=== PATIENT | female | born 1950 | race Caucasian/White ===

== ENCOUNTER 2016-11-27 12:42 | Observation (INO) ==
--- NOTE | 2016-11-27 13:20 | EKG Report ---
Stationary ECG Study [facility] ER Test Date: 11/27/2016 12:45:44 PM Pat Name: KORTNEY CRAVEN Department: Room: Gender: F [employer] Spr[employer] Operator: BIA : 1950 Requested by: Eagle Jason Order Number: [id number] Reading MD: ZAIRE CORONADO Intervals [place] Rate: 68 P: 71 DC: 158 QRS: 49 QRSD: 96 T: 58 QT: 415 QTc: 433 Interpretive Statements SINUS RHYTHM Electronically Signed On 11-27-16 16:03:19 PASTRY BAKER by ZAIRE CORONADO [email or web address]
[2016-11-27] MEDS ORDERED: NITROGLYCERIN 2% OINT 1 INCH/GM PACK TOP STA (14:08)
[2016-11-27] MEDS ORDERED: ASPIRIN 325 MG TABLET PO STA (14:08)
[2016-11-27] MEDS ORDERED: MORPHINE 2 MG/1 ML SYRINGE IV STA (14:08)
[2016-11-27] MEDS ORDERED: ALUM/MAG/SIMETH/LIDO VISC 1:1 30 ML BOTTLE PO STA (14:08)
[2016-11-27] MEDS ORDERED: ONDANSETRON 4 MG/2 ML VIAL IV STA (14:08)
[2016-11-27 14:18] LABS: Basophils % 0.8 % (0.0-0.8); Eosinophils # 0.2 10*3/uL (0.0-0.87); Eosinophils % 6.2 % (0.00-10.9); Hematocrit 34.9 VOL% (35.7-47.0); Immature Granulocytes % 0.4 %; Immature Granulocytes Absolute 0.01 #; Lymphocytes # 0.7 10*3/uL (1.4-4.0); Mean Corpuscular HGB Conc 31.5 GM/DL (32-36); Mean Corpuscular Hemoglobin 26 PG (27-34); Mean Corpuscular Volume 82.5 FL (87-102); Mean Platelet Volume 13.7 FL (9.6-12.0); Monocytes # 0.2 10*3/uL (0.11-0.8); Monocytes % 8.1 % (1.7-12.7); Neutrophils # 1.5 10*3/uL (1.4-7.4); Neutrophils % 58.5 % (38.7-73.9); Red Blood Count 4.23 MC/CUMM (3.8-5.5); Red Cell Distribution Width 16.5 % (9.3-17.3); White Blood Count 2.6 T/CUMM (4-12)
[2016-11-27 14:19] LABS: Platelet Count 69 T/CUMM (130-400)
[2016-11-27 14:23] LABS: INR 2.5; PT Patient Result 28.4 SECS
[2016-11-27 14:28] LABS: Bilirubin,Total 1.3 MG/DL (0.2-1.0); Calcium 8.1 MG/DL (8.5-10.1); Magnesium 1.8 MG/DL (1.8-2.4); Osmolality,Calculated 291.3 MOS/KG (273-304); Potassium 3.6 MMOL/L (3.5-5.1); Total Protein 6.3 G/DL (6.4-8.3)
--- NOTE | 2016-11-27 14:28 | Emergency Department Note ---
Tori Szymanski Brittany, am scribing for, and in the presence of, Eagle Hayes MD 14:24. Abigail Szymanski Charles R, MD, personally performed the services described in this documentation, ascribed by Mishel Valle in my presence, and it is both accurate and complete [id number] . Arrival - Arrival Chief Complaint: Chest Pain Stated Complaint: chest pain x 1 month ED Nursing Triage Note: pain in center of chest and numbness into left arm that started two hours ago. has been having chest pain for over one month but worse this am with nausea. Mode of Arrival: Stretcher Limitations: No Limitations Source: Patient, Family Time Seen by Provider: 11/27/16 13:26 - History of Present Illness HPI Narrative: This is a 66 y/o white female,who presents to the ED with c/o CP which started 2 days ago. She states she has been SOB and noticed she was diaphoretic to her face only. She has had nausea. She denies any neck pain, but does report neck tenderness. Pt also complains of "a spot to her left breast". Pt has no other complaints/pain in the ED at this time. Pt has a PMHx of anxiety, depression, vertigo, migraines, eye problems, GERD, esophageal varices, hepatitis, liver problems, and polyps, Pt has had a cardiac cath, tonsilectomy, colonoscopy, appendectomy, cholectstectomy, EGD, gastric bypass surgery, and hysterectomy. Pt has a family medical Hx of HTN, stroke, heart disease, diabetes, and cancer. Pt denies a social Hx. Onset (ago): day(s) (Started 2 days ago) Consistency: constant Severity: moderate Allergies/Adverse Reactions: Allergies Allergy/AdvReac Type Severity Reaction Status Date / Time No Known Allergies Allergy Verified 04/10/15 08:39 Home Medications: Home Medications Medication Instructions Recorded Confirmed Type Estrogens(Conj) Tab [Premarin Tab] 0.625 mg PO DAILY 04/10/15 06/26/16 History Spironolactone 400 mg PO DAILY 04/10/15 06/26/16 History Levothyroxine Tab [Synthroid Tab] 50 mcg PO DAILY@0700 02/16/16 06/26/16 History Lactulose Liquid [Chronulac] 20 gm PO BID #1800 mls 02/20/16 06/26/16 Rx Magnesium Chloride [Slow Mag] 64 mg PO BID #30 tablet 02/20/16 06/26/16 Rx Rifaximin [Xifaxan] 550 mg PO BID #60 tablet 02/20/16 06/26/16 Rx Furosemide Tab [Lasix Tab] 40 mg PO DAILY 06/26/16 06/26/16 History Furosemide Tab [Lasix Tab] 40 mg PO DAILY tablet 07/01/16 Rx HYDROcodone/ACETAMIN 5-325 [[place] 1 tablet PO Q6H PRN #0 tablet 07/01/16 Rx 5-325] LORazepam TAB [Ativan Tab] 0.5 mg PO BID tablet 07/01/16 Rx cephALEXin [Keflex] 500 mg PO Q6HR capsule 07/01/16 Rx Review of System - Review of System 12 point system: reviewed and no additional remarkable complaints except as stated - Review of System Constitutional: Present: diaphoresis Cardiovascular: Present: chest pain, other (Dyspnea) Gastrointestinal: Present: nausea Musculoskeletal: Absent: neck pain (Neck tenderness, per pt) Additional ROS comments: "Spot" on left breast Medical,Surgical,& Family Hx - Medical History Cardio: No history of: CAD, Hypertension, [place] Psychological: History of: Anxiety Disorders, Depression, Psychiatric Problems ( Overdose suicide attempt) Neurology: History of: Migraine, Vertigo No history of: Seizures HEENT: History of: Eye Problem (cataract) Gastrointestinal: History of: Esophageal Varices, GERD, Hemorrhoids, Hepatitis, Liver Problems (has liver failure. Is on the liver transplant list but not high scale yet), Polyps Hematology: History of: Anemia - Surgical History Cardiac Surgeries: Sugical HX of: Cardiac Catheterization (12 YEARS AGO) Neurologic Surgeries: Patient denies: Neurologic Surgery HEENT Surgeries: Surgical HX of: Tonsilectomy & Adenoidectomy Abdominal Surgeries: Surgical HX of: Appendectomy, Cholecystectomy, Colonoscopy , Gastric Bypass Surgery, EGD Reproductive Surgeries: Surgical HX of;: Hysterectomy - Family History Family History: Reports;: Family Cancer (FATHER), Family Diabetes (BROTHER), Family Heart Disease (MOTHER, BROTHER, SISTERS), Family Hypertension, Family Stroke (mother) - Social History Smoking Status: Never smoker Exam Vital Signs: Vital Signs Temperature 97.5 F L 11/27/16 12:47 Pulse Rate 70 11/27/16 13:57 Respiratory Rate 16 11/27/16 13:57 Blood Pressure 146/67 11/27/16 13:57 O2 Sat by Pulse Oximetry 98 11/27/16 13:57 - General General appearance: alert, in no apparent distress - Head Head exam: Present: atraumatic, normocephalic, normal inspection - Eye Eye exam: Present: normal appearance, PERRL, EOMI - ENT ENT exam: Present: normal exam, normal oropharynx, mucous membranes moist - Neck Neck exam: Present: normal inspection, full ROM, trachea midline. Absent: tenderness, thyromegaly - Chest Chest inspection: Present: normal inspection, symmetric chest wall rise. Absent : tenderness, rash, abscess - Respiratory Respiratory exam: Present: rales - Cardiovascular Cardiovascular exam: Present: regular rate, irregular rhythm, murmur (3 out of 6 murmur) - Abdominal Exam Abdominal exam: Present: soft, normal bowel sounds. Absent: distention, tenderness, guarding, rebound, rigidity - Extremities Exam Extremities exam: Present: normal capillary refill, pedal edema (+1 pedal edema) . Absent: tenderness, calf tenderness - Back Exam Back exam: Present: normal inspection, full ROM. Absent: tenderness, muscle spasm, rashes - Neurological Exam Neurological exam: Present: alert, oriented X3, CN II-XII intact, normal gait, reflexes normal. Absent: motor sensory deficit - Psychiatric Psychiatric exam: Present: normal affect, normal mood. Absent: agitated, anxious - Skin Skin exam: Present: other (Echymosis to the entire body) - Other Other exam information: Echymosis to the left breast Course - Consultations Time: 14:55 Results - Labs CBC & BMP: 11/27/16 13:17 11/27/16 13:17 Lab Results: I have reviewed the patients labs Labs: Laboratory Tests 11/27/16 11/27/16 13:17 13:17 WBC 2.6 L Hgb 11.0 L Hct 34.9 L MCV 82.5 L MCH 26 L MCHC 31.5 L Plt Count 69 L MPV 13.7 H Lymph # (Auto) 0.7 L Sodium 148 H Chloride 114 H Calcium 8.1 L Total Bilirubin 1.30 H Alkaline Phosphatase 154 H Total Protein 6.3 L Albumin 3.0 L Albumin/Globulin Ratio 0.9 L - Diagnostic Findings Procedure: Chest x-ray: report reviewed by me (The heart is borderline is size with chronic scarring in the lungs. ) Disposition Clinical Impression: Atypical chest pain, Biliary liver cirrhosis, Primary biliary cirrhosis, Thrombocytopenia, Neutropenia Case discussed with: patient, patient's family Disposition: Still a Patient Condition: Stable
[2016-11-27] MEDS ORDERED: ONDANSETRON 4 MG/2 ML VIAL ONE (14:29)
[2016-11-27] MEDS ORDERED: NITROGLYCERIN 2% OINT 1 INCH/GM PACK TOP ONE (14:29)
[2016-11-27] MEDS ORDERED: ASPIRIN 325 MG TABLET ONE (14:30)
[2016-11-27] MEDS ORDERED: MORPHINE 2 MG/1 ML SYRINGE ONE (14:30)
[2016-11-27] MEDS ORDERED: ALUM/MAG/SIMETH/LIDO VISC 1:1 30 ML BOTTLE PO ONE (14:30)
--- NOTE | 2016-11-27 14:30 | XRay Report ---
Portable chest Date: 11/27/2016 Clinical history: Chest pain Comparison: 06/28/2017 Technique: Portable AP sitting chest Findings: The heart is borderline in size. Reduced parenchymal findings with chronic scarring. Calcified granulomata/nodes. Postoperative findings in upper abdomen with degenerative changes. Impression: The heart is borderline in size with chronic scarring in the lungs. PROCEDURE INTERPRETED AT [facility] DEPARTMENT OF RADIOLOGY Final Report Signed by: Dr. Yaquelin Galindo
[2016-11-27 14:46] LABS: Elliptocytes Few; Platelet Estimate Decreased
[2016-11-27 15:43] LABS: Apearance,Urine CLEAR (Clear); Bilirubin,Urine Negative (Negative); Blood, Urine Negative (Negative); Glucose,Urine (UA) Negative (Negative); Ketones,Urine Negative (Negative); Mucus,Urine Occasional /LPF (Occasional); Nitrite,Urine Negative (Negative); Protein,Urine Negative; Urine Color Yellow (Yellow); Urine Specific Gravity 1.018 (1.001-1.035); WBC,Urine <1 /HPF (0-6)
[2016-11-27] MEDS ORDERED: LACTULOSE 20 GM/30 ML UDCUP PO PRN ×2 (16:24→18:48)
[2016-11-27] MEDS ORDERED: ACETAMINOPHEN 325 MG TABLET PO PRN (16:24)
[2016-11-27] MEDS ORDERED: GLUCAGON 1 MG VIAL IM PRN (16:24)
[2016-11-27] MEDS ORDERED: DEXTROSE 50% 25 GM/50 ML VIAL IV PRN (16:24)
--- NOTE | 2016-11-27 16:33 | Hospitalist History & Physical ---
<FengLubna N - Last Filed: 11/27/16 16:28> Assessment and Plan - Time spent with patient Time spent with patient: Greater than 30 minutes (1) Atypical chest pain Status: Acute Assessment and plan: admit to telemetry serial EKG and enzymes consult cardiology defer home medicines to Dr. Salazar helton DVt prophylaxis with SCD only routine labs in AM defer chronic low PLT management to Dr. Medeiros Current Visit: Yes History of Present Illness Chief complaint: chest pain History of present illness: Ms. Hernandez is a 66 year old female who presents to the Er today with left sided chest pain that radiates into her neck. She tells me that it has been going on for several months off and on but today it came on and was much more severe and constant. She denies acute nausea, shortness of breath or dizziness. she states she does have all of those symptoms chronically however. Pt has multiple chronic medical conditions for which she is non complaint and often untruthful about. Pt was recently fired from her PCP, Dr. Florencio Trevino. She was admitted here in June of 2016 for a suicidal attempt and was discharged to [place]. She has a PMH of anxiety, depression,vertigo, migraines, eye problems , GERD, esophageal varices, hepatitis, liver problems, and polyps, Pt has had a cardiac cath, tonsilectomy, colonoscopy, appendectomy, cholectstectomy, EGD, gastric bypass surgery, and hysterectomy. Pt has a family medical Hx of HTN, stroke, heart disease, diabetes, and cancer. Pt denies a social Hx. Home Medications Medication Instructions Recorded Confirmed Type Spironolactone 400 mg PO DAILY 04/10/15 11/27/16 History HYDROcodone/ACETAMIN 5-325 [[place] 1 tablet PO Q6H PRN #0 tablet 07/01/16 Rx 5-325] Estrogens(Conj) Inj [Premarin Inj] 25 mg IM Q28D 11/27/16 11/27/16 History Furosemide Tab [Lasix Tab] 40 mg PO BID PRN 11/27/16 11/27/16 History Furosemide Tab [Lasix Tab] 80 mg PO BID DIURETIC PRN 11/27/16 11/27/16 History Lactulose Liquid [Chronulac] 20 gm PO BID PRN 11/27/16 11/27/16 History Levothyroxine Tab [Synthroid Tab] 75 mcg PO DAILY@0700 11/27/16 11/27/16 History Allergies Allergy/AdvReac Type Severity Reaction Status Date / Time No Known Allergies Allergy Verified 04/10/15 08:39 Medical,Surgical,& Family Hx - Medical History Cardio: No history of: CAD, Hypertension, [place] Psychological: History of: Anxiety Disorders, Depression, Psychiatric Problems ( Overdose suicide attempt) Neurology: History of: Migraine, Vertigo No history of: Seizures HEENT: History of: Eye Problem (cataract) Gastrointestinal: History of: Esophageal Varices, GERD, Hemorrhoids, Hepatitis, Liver Problems (has liver failure. Is on the liver transplant list but not high scale yet), Polyps Hematology: History of: Anemia - Surgical History Cardiac Surgeries: Sugical HX of: Cardiac Catheterization (12 YEARS AGO) Neurologic Surgeries: Patient denies: Neurologic Surgery HEENT Surgeries: Surgical HX of: Tonsilectomy & Adenoidectomy Abdominal Surgeries: Surgical HX of: Appendectomy, Cholecystectomy, Colonoscopy , Gastric Bypass Surgery, EGD Reproductive Surgeries: Surgical HX of;: Hysterectomy - Family History Family History: Reports;: Family Cancer (FATHER), Family Diabetes (BROTHER), Family Heart Disease (MOTHER, BROTHER, SISTERS), Family Hypertension, Family Stroke (mother) - Social History Smoking Status: Never smoker 12 point system: reviewed and no additional remarkable complaints except as stated Exam - Constitutional Vitals: Period Temp Pulse Resp BP Sys/Dailey Pulse Ox Last 24 Hr 97.5 F-97.5 F 67-73 16-19 129-146/67-75 98-100 General appearance: no acute distress - Head Head exam: Present: normal inspection, normocephalic - Eye Eye exam: Present: EOMI. Absent: scleral icterus Pupils: Present: ANETA, normal accommodation - ENT ENT exam: Present: normal exam, normal oropharynx - Neck Neck exam: Present: normal inspection. Absent: lymphadenopathy - Respiratory Respiratory exam: Present: clear to auscultation bilaterally. Absent: wheezes - Cardiovascular Cardiovascular exam: Present: regular rate and rhythm. Absent: tachycardia - GI/Abdominal GI/Abdominal exam: Present: normal bowel sounds, soft. Absent: tenderness - Extremities Exam Extremities exam: Present: normal inspection, full ROM. Absent: edema - Back Exam Back exam: Present: normal inspection. Absent: muscle spasm - Neurological Exam Neurological exam: Present: alert, oriented X3 - Psychiatric Psychiatric exam: Present: normal affect, normal mood - Skin Skin exam: Present: normal color, warm, dry Results - Labs CBC & BMP: 11/27/16 13:17 11/27/16 13:17 Lab Results: I have reviewed the past 24 hour labs Quality Measures - VTE Contraindication to Pharmacological VTE Prophylaxis: Thrombocytopenia <Kathe Medeiros - Last Filed: 11/28/16 10:39> History of Present Illness History of present illness: Ms. Hernandez is a 66 year old female Exam - Constitutional Vitals: Period Temp Pulse Resp BP Sys/Dailey Pulse Ox Last 24 Hr 97.4 F-97.7 F 59-73 16-22 94-128/56-83 97-99 Results - Labs CBC & BMP: 11/28/16 04:31 11/28/16 04:31
[2016-11-27 16:49] LABS: Risk Ratio 2.31
[2016-11-27] MEDS: INSULIN LISPRO 100 UNIT/ML SUBCUT SCH ×2 (19:04→20:38)
[2016-11-27 20:29] LABS: Troponin I Only < 0.015 NG/ML (0.00-0.045)
[2016-11-27] MEDS: METOPROLOL TARTRATE 25 MG TABLET PO SCH (20:37)
[2016-11-27] MEDS: ENOXAPARIN 40 MG/0.4 ML SYRINGE SUBCUT SCH (20:38)
[2016-11-27] MEDS: ONDANSETRON 4 MG/2 ML VIAL IV PRN (23:12)
[2016-11-28] MEDS: MORPHINE 2 MG/1 ML SYRINGE IV PRN ×2 (03:55→09:15)
[2016-11-28 05:20] LABS: Eosinophils # 0.3 10*3/uL (0.0-0.87); Eosinophils % 8.6 % (0.00-10.9); Hematocrit 30.4 VOL% (35.7-47.0); Hemoglobin 9.4 GM/DL (12.0-16.0); Immature Granulocytes % 0.3 %; Immature Granulocytes Absolute 0.01 #; Lymphocytes # 0.9 10*3/uL (1.4-4.0); Lymphocytes % 29.8 % (21.3-54.2); Mean Corpuscular HGB Conc 30.9 GM/DL (32-36); Mean Corpuscular Hemoglobin 26 PG (27-34); Mean Corpuscular Volume 83.1 FL (87-102); Monocytes # 0.3 10*3/uL (0.11-0.8); Monocytes % 8.6 % (1.7-12.7); Neutrophils # 1.5 10*3/uL (1.4-7.4); Neutrophils % 51.7 % (38.7-73.9); Platelet Count 77 T/CUMM (130-400); Red Blood Count 3.66 MC/CUMM (3.8-5.5); Red Cell Distribution Width 16.6 % (9.3-17.3); White Blood Count 2.9 T/CUMM (4-12)
[2016-11-28 05:55] LABS: Albumin 2.5 G/DL (3.4-5.0); Calcium 8.3 MG/DL (8.5-10.1); Osmolality,Calculated 295.1 MOS/KG (273-304); Potassium 3.6 MMOL/L (3.5-5.1); Total Protein 5.1 G/DL (6.4-8.3)
[2016-11-28] MEDS: LEVOTHYROXINE 75 MCG TABLET PO SCH (06:04)
[2016-11-28 06:05] LABS: Eosinophils 4 % (0-10); Hypochromasia 1+; Lymphocytes 28 % (20-55); Microcytosis 1+; Segmented Neutrophils 61 % (50-85); Total Cells Counted 100
[2016-11-28 06:06] LABS: Ovalocytes Slight; Platelet Estimate Decreased
[2016-11-28] MEDS: INSULIN LISPRO 100 UNIT/ML SUBCUT SCH ×4 (08:05→21:30)
[2016-11-28] MEDS: METOPROLOL TARTRATE 25 MG TABLET PO SCH (08:13)
[2016-11-28] MEDS: PANTOPRAZOLE 40 MG TABLET PO SCH (08:14)
[2016-11-28] MEDS ORDERED: LISINOPRIL 2.5 MG TABLET PO SCH (09:00)
[2016-11-28] MEDS ORDERED: ASPIRIN 325 MG TABLET PO SCH (09:00)
[2016-11-28] MEDS: ONDANSETRON 4 MG/2 ML VIAL IV PRN (09:15)
[2016-11-28] MEDS ORDERED: PROMETHAZINE 25 MG TABLET PO PRN (11:57)
--- NOTE | 2016-11-28 12:15 | Cardiology Consult Note ---
Mayank Szymanski Vanessa, RN, am scribing for, and in the presence of, Seb Maki MD 12:10. Assessment and Plan - Time spent with patient Time spent with patient: Greater than 30 minutes (due to assessment, planning, documentation) (1) Chest pain Status: Acute Assessment and plan: This is somewhat chronic and recurrent but this is very atypical for cardiac. Unremarkable cardiac catheterization 2012 and no clinical findings consistent with skin the cart disease. She also has chest wall tenderness that reproduces her pain. This can be evaluated as an outpatient with Dr. Lovett with stress test. Current Visit: Yes (2) GERD (gastroesophageal reflux disease) Status: Chronic Assessment and plan: She's had esophageal strictures previously and dilations. Current Visit: Yes (3) Anxiety and depression Status: Chronic Current Visit: Yes (4) Thrombocytopenia Status: Chronic Current Visit: Yes (5) Pancytopenia Status: Acute Assessment and plan: This a chronic issue. Certainly this would not want any invasive procedures unless necessary. Current Visit: Yes (6) Syncope Status: Acute Assessment and plan: His question this was vasovagal. The patient was having issues pain and nausea before this episode. It was almost orthostatic in nature. We will check orthostatic pressures and an echocardiogram. Current Visit: Yes (7) Chronic liver disease Status: Acute Assessment and plan: This is a chronic issue. This may be contributing to her elevated INR Current Visit: Yes (8) Elevated INR Status: Acute Assessment and plan: She is not on warfarin and this may be indicative of liver disease. Current Visit: Yes History of Present Illness - Data of Consult Patient: known to practice within the last 3 years Consult date: 11/28/16 Requesting Physician: Kathe Medeiros - Consult Narrative Reason for consult: chest pain History of present illness: Ms. Hernandez is a 66 year old white female followed in the past by Dr. Pranay Lovett. PMHx includes anxiety, depression, vertigo, migraines, GERD, esophageal varices, chronic hepatitis. Risk factors for heart disease include age and family history of CAD. Last admission to hospital was in June 2016 for suicide attempt with drug overdose, felt to most likely be from naproxen, after an argument with her prior to admission. Also had gram negative sepsis due to Klebsiella. After maximum medical optimization, she was discharged to [facility] for continued suicidal and homicidal threats. Presented to the emergency room yesterday with complaints of chest pain for 1 month. Apparently at one point before arrival, she had a particularly bothersome pain in left breast area with radiation into left scapular area, prompting her presentation. Noted to be diaphoretic in the face. She was not short of breath, had no nausea, dizziness, presyncope s/s. Cardiac enzymes with negative troponin, normal CPK. 12 lead EKG demonstrated sinus rhythm with no acute ST segment changes. Chest x-ray negative for acute cardiopulmonary process. Admitted for further evaluation, and cardiology has now been consulted to see. Last seen in cardiac consult by Dr. Lovett in March 2015. At that time, she complained of right sided chest pain radiating into her arm and back for approximately 30-40 minutes. Blood work, EKG unremarkable for cardiac event. Was also under reported great amount of stress and anxiety at that time. Underwent cardiac catheterization in January 2012 for complaints of chest pain. She was very anxious and worried regarding coronary disease. Cath performed to "know for sure" whether of not she had CAD. There was no significant obstructive coronary disease, mild to moderate distal vessel tortuosities, preserved LV function with EF 55-65%. Upon arrival to room to examine and interview patient, she is awake and alert with no acute distress or obvious need noted. She is scrolling through social media on her cell phone, tells me she is still having chest pain at this very second, but it's "not near as bad as it was yesterday." Reports that after she woke up yesterday morning, she "just didn't feel good", experienced some nausea , and after taking a couple sips of coffee, nausea worsened. Laid down for a couple minutes. Stood up to go to bathroom, felt lightheaded, and while in the bathroom, everything began to spin and she "just slumped over." Says she blacked out, and that her heard this happen, and she is not sure how long this lasted. No traumatic injury to head or other noted. Spouse is not here currently. At some point after arousing, she felt a pain in left side of her chest, describes it as a "jabbing" sensation, and this radiated up the chest and over her left shoulder into left scapular area. No worsening or alleviating factors. Received ASA, GI cocktail, Zofran, Morphine, and Nitrobid paste, and she states her pain was "never really relieved." Serial cardiac biomarkers have remained negative, EKG with no acute changes. Skin is warm, dry , appropriate color. No orthopnea, PND. Trace edema bilateral lower ext's. Blood pressure stable, averaging 125/65. Pulse 60's with occasional palpitation per radial pulse check. Echocardiogram has been ordered, and this is pending. Certainly this patient's chest pain is very atypical for cardiac. She is tender in her chest as well. Her troponins are nondetectable. ECG is normal sinus rhythm and within normal limits. Her cardiac catheterization 2011 revealed widely patent coronary arteries. Her INR is elevated and she is not on warfarin. She has a pancytopenia. She has a history of liver disease that may contribute to elevated INR and blood counts. This is a chronic issue will review her old chart. Labs reviewed: sodium 149, potassium 3.6, magnesium 1.8, creatinine 1.0, glucose 107, ammonia <10, UA negative for bacteria. Thrombocytopenia noted. CC: Kathe Medeiros MD - Home Medications and Allergies Home Medications: Home Medications Medication Instructions Recorded Confirmed Type Spironolactone 400 mg PO DAILY 04/10/15 11/27/16 History HYDROcodone/ACETAMIN 5-325 [[place] 1 tablet PO Q6H PRN #0 tablet 07/01/16 Rx 5-325] Estrogens(Conj) Inj [Premarin Inj] 25 mg IM Q28D 11/27/16 11/27/16 History Furosemide Tab [Lasix Tab] 40 mg PO BID PRN 11/27/16 11/27/16 History Furosemide Tab [Lasix Tab] 80 mg PO BID DIURETIC PRN 11/27/16 11/27/16 History Lactulose Liquid [Chronulac] 20 gm PO BID PRN 11/27/16 11/27/16 History Levothyroxine Tab [Synthroid Tab] 75 mcg PO DAILY@0700 11/27/16 11/27/16 History Allergies/Adverse Reactions: Allergies Allergy/AdvReac Type Severity Reaction Status Date / Time No Known Allergies Allergy Verified 04/10/15 08:39 - Constitutional Constitutional: Present: lethargy, weight loss (reports "50 pound weight loss in last 2 1/2 months"). Absent: daytime sleepiness, fever(s), frequent falls, night sweats, weakness - EENT Eyes: Absent: blurry vision, loss of vision Ears: Absent: decreased hearing, ear discharge Nose, mouth and throat: Present: vertigo (recently; none currently). Absent: epistaxis, hoarseness, throat swelling, tongue swelling - Cardiovascular Cardiovascular: Present: chest pain at rest, edema (trace pretibial), palpitations (occasional). Absent: chest pain with activity, claudication, diaphoresis, dyspnea, dyspnea on exertion, radiating jaw, neck or arm pain, lightheadedness, orthopnea, PND - Respiratory Respiratory: Absent: cough, dyspnea, hemoptysis, dyspnea on exertion, wheezing, change in phlegm color - Gastrointestinal Gastrointestinal: Present: abdominal pain (RUQ tender to palpation), nausea ( recently; none currently). Absent: constipation, diarrhea, hematochezia, melena , vomiting, jaundice - Genitourinary Genitourinary: Absent: flank pain, hematuria - Musculoskeletal Musculoskeletal: Absent: limited range of motion - Neurological Neurological: Absent: abnormal gait, confusion, dizziness, frequent falls, syncope, tremor(s) - Psychiatric Psychiatric: Absent: anxiety, depression - Endocrine Endocrine: Absent: cold intolerance, heat intolerance - Hematologic/Lymphatic Hematologic/Lymphatic: Present: easy bruising. Absent: easy bleeding Medical,Surgical,& Family Hx - Medical History Cardio: No history of: Cardiac Dysrhythmia, CAD, Hypertension, ND, Pacemaker, PVD, Valvular Heart Disease Psychological: History of: Anxiety Disorders, Depression, Previous Suicide Attempt (June 2016- drug OD), Psychiatric Problems Neurology: History of: Migraine, Vertigo No history of: Cerebral Hemorrhage, Dementia, Peripheral Neuropathy, Seizures , TIA HEENT: History of: Eye Problem (cataract) Endocrine: History of: Thyroid Disorder No history of: Diabetes Mellitus (IDDM), Diabetes Mellitus (NIDDM) Rheumatology: No history of;: Fibromyalgia, Gout, Rheumatoid Arthritis Respiratory: History of: Intubation (for airway protection after drug OD; no prolonged ventilation) No history of: Asthma, Bronchitis, COPD, Obstructive Sleep Apnea Gastrointestinal: History of: Esophageal Varices, GERD, Hemorrhoids, Hepatitis, Liver Problems (has liver failure. Is on the liver transplant list but not high scale yet), Polyps Hematology: History of: Anemia No history of: Blood Transfusion Reaction - Surgical History Cardiac Surgeries: Sugical HX of: Cardiac Catheterization (January 2012) Neurologic Surgeries: Patient denies: Neurologic Surgery HEENT Surgeries: Surgical HX of: Tonsilectomy & Adenoidectomy Abdominal Surgeries: Surgical HX of: Appendectomy, Cholecystectomy, Colonoscopy , Gastric Bypass Surgery, EGD Reproductive Surgeries: Surgical HX of;: Hysterectomy - Family History Family History: Reports;: Family Cancer (FATHER), Family Diabetes (BROTHER), Family Heart Disease (MOTHER, BROTHER, SISTERS), Family Hypertension, Family Stroke (mother) Denies;: Family Anesthesia Reaction, Family Hematology, Family Psychiatric Problems, Additional Family History - Social History Smoking Status: Never smoker Marital Status: Lives With:: Spouse Functional capacity: independent ambulation Physical Examination Vital Signs Temp Pulse Resp BP Pulse Ox 97.5 F L 67 19 129/75 98 11/27/16 12:46 11/27/16 12:46 11/27/16 12:46 11/27/16 12:46 11/27/16 12:46 General: Present: No Apparent Distress HEENT: Present: Mucus Membranes Moist. Absent: Jaundice, Pallor Neck: Present: Supple Neck, Midline Trachea, No JVD/HJR, No Masses, No Bruit Cardiac: Present: Reg Rate and Rhythm, Other (she has marked anterior chest wall and left chest wall tenderness that reproduces her pain.). Absent: Audible Murmur Lungs: Present: Normal Exam, No Wheeze, Rales, Rhonchi Neuro: Present: Grossly Intact. Absent: Tingling, Weakness, Resting Tremor Abdomen: Present: Soft, Active Bowel Sounds, Tender (slightly; RUQ) Skin: Present: Bruising (various places BUE's related to previous venipuncture, approx 2 in wide bruise on left breast-denies fall or injury). Absent: Rash Musculoskeletal: Present: No Fluid Collection, Normal Range of Motion Extremities: Present: No Clubbing, No Cyanosis, Normal Upper Extr. Pulses (3+), Normal Lower Extr. Pulses (3+), Edema (trace pretibial) Result/EKG - Labs CBC & BMP: 11/28/16 04:31 11/28/16 04:31 Lab Results: I have reviewed the past 24 hour labs (troponins are nondetectable. She has a pancytopenia that is chronic.) Labs: Laboratory Results - last 24 hr 11/27/16 11/27/16 11/27/16 19:19 19:19 19:19 WBC RBC Hgb Hct MCV MCH MCHC RDW Plt Count MPV Neut % (Auto) Lymph % (Auto) [place] % (Auto) Eos % (Auto) Baso % (Auto) Neut # (Auto) Lymph # (Auto) [place] # (Auto) Eos # (Auto) Baso # (Auto) Total Counted Immature Gran % Nucleated RBC % Immature Gran # Segmented Neutrophils Lymphocytes Monocytes Eosinophils Basophils Nucleated RBCs # Platelet Estimate Hypochromasia Microcytosis Ovalocytes Morphology Comment D-Dimer, Quantitative <= 0.5 Sodium Potassium Chloride Carbon Dioxide Anion Gap BUN Creatinine GFR Calculation BUN/Creatinine Ratio Glucose POC Glucose Hemoglobin A1c Calculated Osmolality Calcium Total Bilirubin AST ALT Alkaline Phosphatase Ammonia < 10 L Total Creatine Kinase CK-MB (CK-2) Troponin I Total Protein Albumin Globulin Albumin/Globulin Ratio TSH 3rd Generation Blood Type O NEGATIVE Antibody Screen Negative 11/27/16 11/27/16 11/27/16 19:19 19:19 19:21 WBC RBC Hgb Hct MCV MCH MCHC RDW Plt Count MPV Neut % (Auto) Lymph % (Auto) [place] % (Auto) Eos % (Auto) Baso % (Auto) Neut # (Auto) Lymph # (Auto) [place] # (Auto) Eos # (Auto) Baso # (Auto) Total Counted Immature Gran % Nucleated RBC % Immature Gran # Segmented Neutrophils Lymphocytes Monocytes Eosinophils Basophils Nucleated RBCs # Platelet Estimate Hypochromasia Microcytosis Ovalocytes Morphology Comment D-Dimer, Quantitative Sodium Potassium Chloride Carbon Dioxide Anion Gap BUN Creatinine GFR Calculation BUN/Creatinine Ratio Glucose POC Glucose 101 Hemoglobin A1c 4.4 Calculated Osmolality Calcium Total Bilirubin AST ALT Alkaline Phosphatase Ammonia Total Creatine Kinase 66 CK-MB (CK-2) < 1.0 Troponin I < 0.015 Total Protein Albumin Globulin Albumin/Globulin Ratio TSH 3rd Generation 5.210 H Blood Type Antibody Screen 11/28/16 11/28/16 11/28/16 04:31 04:31 07:36 WBC 2.9 L RBC 3.66 L Hgb 9.4 L Hct 30.4 L MCV 83.1 L MCH 26 L MCHC 30.9 L RDW 16.6 Plt Count 77 L MPV 12.0 Neut % (Auto) 51.7 Lymph % (Auto) 29.8 [place] % (Auto) 8.6 Eos % (Auto) 8.6 Baso % (Auto) 1.0 H Neut # (Auto) 1.5 Lymph # (Auto) 0.9 L [place] # (Auto) 0.3 Eos # (Auto) 0.3 Baso # (Auto) 0.0 Total Counted 100 Immature Gran % 0.3 Nucleated RBC % 0.0 Immature Gran # 0.01 Segmented Neutrophils 61 Lymphocytes 28 Monocytes 6 Eosinophils 4 Basophils 1.0 H Nucleated RBCs # 0.00 Platelet Estimate Decreased Hypochromasia 1+ Microcytosis 1+ Ovalocytes Slight Morphology Comment D-Dimer, Quantitative Sodium 149 H Potassium 3.6 Chloride 115 H Carbon Dioxide 25 Anion Gap 12.6 BUN 13 Creatinine 1.00 GFR Calculation 65 BUN/Creatinine Ratio 13.00 Glucose 107 H POC Glucose 101 Hemoglobin A1c Calculated Osmolality 295.1 Calcium 8.3 L Total Bilirubin 1.00 AST 21 ALT 17 Alkaline Phosphatase 129 H Ammonia Total Creatine Kinase CK-MB (CK-2) Troponin I Total Protein 5.1 L Albumin 2.5 L Globulin 2.6 Albumin/Globulin Ratio 0.9 L TSH 3rd Generation Blood Type Antibody Screen - Impressions Impressions: ECG is normal sinus rhythm and within normal limits. No ischemic abnormalities. - Diagnostic Findings Procedure: Chest x-ray: image reviewed by me, report reviewed by me (2/ heart borderline in size; chronic scarring of lungs) - EKG EKG results: interpreted by me EKG shows: sinus rhythm Quality Measures - VTE Contraindication to Pharmacological VTE Prophylaxis: Thrombocytopenia I, Seb Maki MD, personally performed the services described in this documentation, ascribed by Supriya Talley RN in my presence, and it is both accurate and complete 215 .
--- NOTE | 2016-11-28 13:24 | Hospitalist Progress Note ---
Assessment and Plan (1) Chest pain Status: Acute Assessment and plan: Cardiology is following. She will get outpatient stress test. cardiac enzymes, [id number] Current Visit: No (2) GERD (gastroesophageal reflux disease) Status: Acute Assessment and plan: She's had esophageal strictures previously and dilations. continue with PPIS Current Visit: No (3) Thrombocytopenia Status: Acute Assessment and plan: will continue to follow -reduce ASA to 81mg daily Current Visit: Yes (4) Chronic liver disease Status: Acute Assessment and plan: causing the thrombocytopenia and coagulopathy. this is chronic, no evidence of bleed, we will continue to monitor Current Visit: Yes (5) Anxiety and depression Status: Chronic Assessment and plan: stable Current Visit: Yes (6) Hypothyroidism Status: Acute Assessment and plan: on supplements Current Visit: Yes Hospitalist: Subjective Interval history: Patient was seen. She had some nausea this am. Exam - Constitutional Vitals: Period Temp Pulse Resp BP Sys/Dailey Pulse Ox Last 24 Hr 97.4 F-97.7 F 53-73 16-22 94-128/50-83 94-99 General appearance: no acute distress - Head Head exam: Present: normal inspection - Respiratory Respiratory exam: Present: clear to auscultation bilaterally - Cardiovascular Cardiovascular exam: Present: regular rate and rhythm - GI/Abdominal GI/Abdominal exam: Present: normal bowel sounds - Extremities Exam Extremities exam: Present: normal inspection Results - Labs CBC & BMP: 11/28/16 04:31 11/28/16 04:31 Lab Results: I have reviewed the past 24 hour labs Quality Measures - VTE Contraindication to Pharmacological VTE Prophylaxis: Thrombocytopenia
[2016-11-28] MEDS: ASPIRIN CHEW 81 MG TABLET PO SCH (14:29)
[2016-11-28] MEDS: ENOXAPARIN 40 MG/0.4 ML SYRINGE SUBCUT SCH (20:48)
[2016-11-29 05:14] LABS: Basophils % 0.7 % (0.0-0.8); Eosinophils # 0.2 10*3/uL (0.0-0.87); Eosinophils % 5.4 % (0.00-10.9); Hematocrit 36.5 VOL% (35.7-47.0); Hemoglobin 11.4 GM/DL (12.0-16.0); Immature Granulocytes % 0.3 %; Immature Granulocytes Absolute 0.01 #; Lymphocytes # 0.8 10*3/uL (1.4-4.0); Lymphocytes % 26.2 % (21.3-54.2); Mean Corpuscular HGB Conc 31.2 GM/DL (32-36); Mean Corpuscular Hemoglobin 26 PG (27-34); Mean Corpuscular Volume 83.9 FL (87-102); Mean Platelet Volume 12.4 FL (9.6-12.0); Monocytes # 0.2 10*3/uL (0.11-0.8); Monocytes % 5.7 % (1.7-12.7); Neutrophils # 1.8 10*3/uL (1.4-7.4); Neutrophils % 61.7 % (38.7-73.9); Red Blood Count 4.35 MC/CUMM (3.8-5.5); Red Cell Distribution Width 16.5 % (9.3-17.3)
[2016-11-29 05:16] LABS: Platelet Count 73 T/CUMM (130-400)
[2016-11-29 05:27] LABS: INR 1.2; PT Patient Result 12.3 SECS
[2016-11-29] MEDS: LEVOTHYROXINE 75 MCG TABLET PO SCH ×2 (05:42→06:24)
[2016-11-29 05:47] LABS: Calcium 8.5 MG/DL (8.5-10.1); Potassium 4.1 MMOL/L (3.5-5.1)
[2016-11-29 05:48] LABS: Hypochromasia Slight; Microcytosis 1+; Ovalocytes Slight; Platelet Estimate Decreased
--- NOTE | 2016-11-29 08:12 | ECHO Report ---
Marleny Hernandez Exam Date: 11/28/2016 08:51 Referring Physician: Technologist: Adriana CHRISTINE Age: 66 Ht (in): Wt (lb): Gender: F Exam Location: [facility] Echo Indications: Hx. CAD, neutropenia, chest pain, liver cirrhosis, CAD BP: / HR: Rhythm: Sinus Technical Quality: fair to good IMPRESSIONS 1. Left ventricle is moderately dilated but with normal systolic function ejection fraction 55%. 2. Left atrium is mildly dilated. 3. Right-sided chambers normal size. 4. Mitral slightly thickened with posterior mitral annular calcification and it worst mild regurgitation. 5. Moderately sclerotic aortic valve is tricuspid without Doppler abnormalities. 6. Moderate mitral tricuspid regurgitation. 7. At worst minimally elevated right-sided pressures. MEASUREMENTS (Male / Female) Normal Values 2D ECHO LV Diastolic Diameter PLAX 5.4 cm 4.2 - 5.9 / 3.9 - 5.3 cm LV Systolic Diameter PLAX 3.4 cm LV Fractional Shortening PLAX 38.0 % IVS Diastolic Thickness 0.8 cm 0.6 - 1.0 / 0.6 - 0.9 cm LVPW Diastolic Thickness 0.9 cm 0.6 - 1.0 / 0.6 - 0.9 cm RV Internal Dim ED PLAX 2.8 cm Aortic Root Diameter 2.9 cm LA Systolic Diameter LX 4.2 cm 3.0 - 4.0 / 2.7 - 3.8 cm DOPPLER TR Peak Velocity 257.0 cm/s TR Peak Gradient 26.4 mmHg FINDINGS Left Ventricle Left ventricular cavity is mildly dilated at worst. Systolic function is normal with an ejection fraction is 55%. Right Ventricle Normal right ventricular size and systolic function. Right Atrium Normal right atrial size. Left Atrium Mildly increased left atrial diameter. Mitral Valve Mildly thickened mitral valve with mild mitral regurgitation. There is posterior mitral annular calcification. Aortic Valve Aortic valve sclerosis without stenosis or regurgitation. Tricuspid Valve Morphologically normal tricuspid valve. [id number] tricuspid valve regurgitation. Tricuspid regurgitation velocities suggest possible peak right ventricular systolic pressure of 31-36 mmHg. Pulmonic Valve Morphologically normal pulmonic valve. Trace pulmonary valve regurgitation. Pericardium No pericardial effusion. Aorta Normal size aortic root and proximal ascending aorta. Seb Maki MD (Electronically Signed) Final Date: 28 November 2016 20:19
[2016-11-29] MEDS: ASPIRIN CHEW 81 MG TABLET PO SCH (09:45)
[2016-11-29] MEDS: PANTOPRAZOLE 40 MG TABLET PO SCH (09:45)
[2016-11-29] MEDS: INSULIN LISPRO 100 UNIT/ML SUBCUT SCH ×2 (09:46→13:14)
--- NOTE | 2016-11-29 11:42 | Cardiology Progress Note ---
Assessment and Plan (1) Chest pain Status: Acute Assessment and plan: This is noncardiac in nature. No further evaluation this time. She should not have follow with Dr. Len Lovett 2-4 weeks. 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 Current Visit: Yes (2) GERD (gastroesophageal reflux disease) Status: Chronic Assessment and plan: She's had esophageal strictures previously and dilations. She is concerned about this. She does CGI while in the hospital or as an outpatient for follow- up. Current Visit: Yes (3) Anxiety and depression Status: Chronic Current Visit: Yes (4) Thrombocytopenia Status: Chronic Current Visit: Yes (5) Pancytopenia Status: Acute Assessment and plan: This a chronic issue. H&H is better today. Current Visit: Yes (6) Syncope Status: Acute Assessment and plan: His question this was vasovagal. She has had some low pressures at times but orthostatics were unremarkable. Her echocardiogram is unremarkable. GEN this can be followed up with PCP and/or Dr. Lovett. Current Visit: Yes (7) Chronic liver disease Status: Acute Assessment and plan: This is a chronic issue. INR today is better. Current Visit: Yes (8) Elevated INR Status: Acute Assessment and plan: INR is normal today 1.2. Current Visit: Yes Cardiology - PN: Subj Interval history: Patient doing well today. She states she has minimal chest pain. Chest wall still sore. Her cardiac enzymes were unremarkable and normal. Her echocardiogram with ejection fraction 55% with the left ventricle being mildly moderately dilated. Left atrium is mildly dilated. Valve structures are unremarkable. Her telemetry was sinus rhythm with some PACs. She's been up and eating this morning. She has no real complaints. She is concerned though about esophageal stricture or hiatal hernia. She's had issues with his previously. I don't think further cardiac evaluation needed this time. We will sign off but she should have follow with Dr. Pranay Lovett probably within the next 2-4 weeks. Exam (Progress Note) - Constitutional Vitals: Period Temp Pulse Resp BP Sys/Dailey Pulse Ox Last 24 Hr 97.4 F-98.3 F 54-63 16-18 86-138/46-86 93-100 Exam: Gen. appearance: Alert and cooperative no distress sitting on the side the bed eating this morning. HEENT: Atraumatic. Artery acute is grossly intact. Neck: Trachea is in midline without JVD or bruits. Lungs: Clear with good air movement without rales rhonchi or wheezes. Cardiovascular: Regular rate and rhythm without gross murmur gallop or rub. Radial pulses are 2+. Chest wall: Still tenderness with palpation the left chest. This is less than yesterday though. Abdomen: Soft nontender. Bowel sounds present. Extremities: No edema. Neurologic: Alert cooperative without focal deficits. Psychiatric: Ligia function is grossly intact. Skin: Warm Result/EKG - Labs CBC & BMP: 11/29/16 04:59 11/29/16 04:59 Lab Results: I have reviewed the past 24 hour labs (lab work is unremarkable.) Labs: Laboratory Results - last 24 hr 11/28/16 11/28/16 11/28/16 11:35 15:47 19:21 WBC RBC Hgb Hct MCV MCH MCHC RDW Plt Count MPV Neut % (Auto) Lymph % (Auto) [place] % (Auto) Eos % (Auto) Baso % (Auto) Neut # (Auto) Lymph # (Auto) [place] # (Auto) Eos # (Auto) Baso # (Auto) Immature Gran % Nucleated RBC % Immature Gran # Nucleated RBCs # Platelet Estimate Hypochromasia Microcytosis Ovalocytes INR PT Patient/Control Mix Sodium Potassium Chloride Carbon Dioxide Anion Gap BUN Creatinine GFR Calculation BUN/Creatinine Ratio Glucose POC Glucose 121 H 92 121 H Calculated Osmolality Calcium 11/29/16 11/29/16 11/29/16 04:59 04:59 04:59 WBC 3.0 L RBC 4.35 Hgb 11.4 L D Hct 36.5 MCV 83.9 L MCH 26 L MCHC 31.2 L RDW 16.5 Plt Count 73 L MPV 12.4 H Neut % (Auto) 61.7 Lymph % (Auto) 26.2 [place] % (Auto) 5.7 Eos % (Auto) 5.4 Baso % (Auto) 0.7 Neut # (Auto) 1.8 Lymph # (Auto) 0.8 L [place] # (Auto) 0.2 Eos # (Auto) 0.2 Baso # (Auto) 0.0 Immature Gran % 0.3 Nucleated RBC % 0.0 Immature Gran # 0.01 Nucleated RBCs # 0.00 Platelet Estimate Decreased Hypochromasia Slight Microcytosis 1+ Ovalocytes Slight INR 1.2 PT Patient/Control Mix 12.3 D Sodium 150 H Potassium 4.1 Chloride 117 H Carbon Dioxide 22 Anion Gap 15.1 H BUN 14 Creatinine 0.90 GFR Calculation 74 BUN/Creatinine Ratio 15.00 Glucose 97 POC Glucose Calculated Osmolality 298.0 Calcium 8.5 - Impressions Impressions: Telemetry was sinus rhythm with PACs but no significant dysrhythmias. Quality Measures - VTE Contraindication to Pharmacological VTE Prophylaxis: Thrombocytopenia
--- NOTE | 2016-11-29 13:10 | Discharge Summary ---
Hospital Course - Hospital Course Hospital Course: Ms. Hernandez is a 66 year old female with a history of chronic Liver disease Hypothyroidism,anxiety, depression, vertigo, migraines, GERD, esophageal varices , chronic hepatitis who has been in and out of the hospital, last admission to hospital was in June 2016 for suicide attempt with drug overdose, felt to most likely be from naproxen, after an argument with her prior to admission presents to the Er today with left sided chest pain that radiates into her neck. She was recently fired from her PCP, Dr. Florencio Trevino. Upon arrival, cardiac enzymes were negative, EKG was unremarkable.Cardiology saw in consultation,they felt her chest pain was chronic, atypical with chest tenderness.She had an unremarkable catheterization in 2011.Her D-dimer was negative,urinalysis was unremakable.Echo showed an ejection fraction 55% with the left ventricle being mildly moderately dilated. Left atrium is mildly dilated. Valve structures are unremarkable. Her telemetry was sinus rhythm with some PACs. Her vitals have been stable, patient's symptoms have resolved and she will be going home today.I held her Lasix and spironolactone that she takes for presumably for her chronic Liver disease due to low blood pressure and no evidence of ascites or edema. I encourage the PCP to re-address this as outpatient. - Time spent with patient Time with patient DS: Greater than 30 minutes Diagnosis - Discharge Diagnosis (1) Chest pain Status: Acute (2) GERD (gastroesophageal reflux disease) Status: Acute (3) Thrombocytopenia Status: Acute (4) Chronic liver disease Status: Acute (5) Anxiety and depression Status: Chronic (6) Hypothyroidism Status: Acute Discharge Plan - Discharge Data Disposition: Disch To Home/Self Care Condition at Discharge: Stable Discharge Diet: advance to your usual diet Activity: resume usual activities as tolerated - Discharge Medications New Acetaminophen Tab [Tylenol Tab] 325 mg PO Q4H PRN #0 tablet PRN Reason: fever, headache/body aches Pantoprazole Tab [Protonix Tab] 40 mg PO DAILY #30 tablet Promethazine Tab [Phenergan Tab] 25 mg PO Q6H PRN #10 tablet PRN Reason: Nausea/Vomiting Continue Levothyroxine Tab [Synthroid Tab] 75 mcg PO DAILY@0700 Estrogens(Conj) Inj [Premarin Inj] 25 mg IM Q28D Lactulose Liquid [Chronulac] 20 gm PO BID PRN PRN Reason: Constipation HYDROcodone/ACETAMIN 5-325 [[place] 5-325] 1 tablet PO Q6H PRN #20 tablet PRN Reason: Pain Moderate (4-7) Discontinued Spironolactone 400 mg PO DAILY Furosemide Tab [Lasix Tab] 40 mg PO BID PRN PRN Reason: Edema Furosemide Tab [Lasix Tab] 80 mg PO BID DIURETIC PRN PRN Reason: Edema - Follow Up or Referral - Forms/Instructions Exam - Constitutional Vitals: Period Temp Pulse Resp BP Sys/Dailey Pulse Ox Last 24 Hr 97.4 F-98.3 F 54-63 16-18 86-138/46-86 93-100 General appearance: no acute distress - Head Head exam: Present: normal inspection - Respiratory Respiratory exam: Present: clear to auscultation bilaterally - Cardiovascular Cardiovascular exam: Present: regular rate and rhythm - GI/Abdominal GI/Abdominal exam: Present: normal bowel sounds - Extremities Exam Extremities exam: Present: normal inspection Discharge Results Labs on day of discharge: Labs from last 24 hours 11/29/16 11/29/16 11/29/16 11:26 04:59 04:59 WBC RBC Hgb Hct MCV MCH MCHC RDW Plt Count MPV Neut % (Auto) Lymph % (Auto) Starke % (Auto) Eos % (Auto) Baso % (Auto) Neut # (Auto) Lymph # (Auto) [place] # (Auto) Eos # (Auto) Baso # (Auto) Immature Gran % Nucleated RBC % Immature Gran # Nucleated RBCs # Platelet Estimate Hypochromasia Microcytosis Ovalocytes INR 1.2 PT Patient/Control Mix 12.3 D Sodium 150 H Potassium 4.1 Chloride 117 H Carbon Dioxide 22 Anion Gap 15.1 H BUN 14 Creatinine 0.90 GFR Calculation 74 BUN/Creatinine Ratio 15.00 Glucose 97 POC Glucose 142 H Calculated Osmolality 298.0 Calcium 8.5 11/29/16 11/28/16 11/28/16 04:59 19:21 15:47 WBC 3.0 L RBC 4.35 Hgb 11.4 L D Hct 36.5 MCV 83.9 L MCH 26 L MCHC 31.2 L RDW 16.5 Plt Count 73 L MPV 12.4 H Neut % (Auto) 61.7 Lymph % (Auto) 26.2 Starke % (Auto) 5.7 Eos % (Auto) 5.4 Baso % (Auto) 0.7 Neut # (Auto) 1.8 Lymph # (Auto) 0.8 L Starke # (Auto) 0.2 Eos # (Auto) 0.2 Baso # (Auto) 0.0 Immature Gran % 0.3 Nucleated RBC % 0.0 Immature Gran # 0.01 Nucleated RBCs # 0.00 Platelet Estimate Decreased Hypochromasia Slight Microcytosis 1+ Ovalocytes Slight INR PT Patient/Control Mix Sodium Potassium Chloride Carbon Dioxide Anion Gap BUN Creatinine GFR Calculation BUN/Creatinine Ratio Glucose POC Glucose 121 H 92 Calculated Osmolality Calcium DS: Provider Date of admission: 11/27/16 16:24 Primary care physician: . No PCP Attending physician on admission: Kathe Medeiros MD Consults: 11/27/16 16:40 Consult to Pharmacy [CONS] Routine Reason for Pharmacy Consult: Adjust Meds Renal Funct Discharging clinician: Kathe Medeiros MD
[2016-11-29 13:53] VITALS: BP 126/67
== END 2016-11-29 14:47 | disposition home or self-care (01) ==
LOC: EDBD → EDUNIT# → N.ED 12:42 → N.EDINP 12:42 → N.5E 18:48
PROVIDERS: ADMIT Internal Medicine; ATTEND Internal Medicine

== ENCOUNTER 2017-06-16 16:36 | Observation (INO) ==
[2017-06-16] MEDS ORDERED: DIPH/TET/ACEL PERT BOOSTER VACCINE 0.5 ML VIAL IM ONE ×2 (16:57→17:04)
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
[2017-06-16 18:53] LABS: Eosinophils # 0.1 10*3/uL (0.0-0.87); Eosinophils % 1.7 % (0.00-10.9); Hematocrit 30.4 VOL% (35.7-47.0); Hemoglobin 9.4 GM/DL (12.0-16.0); Immature Granulocytes % 0.3 %; Immature Granulocytes Absolute 0.01 #; Lymphocytes # 0.8 10*3/uL (1.4-4.0); Lymphocytes % 25.5 % (21.3-54.2); Mean Corpuscular HGB Conc 30.9 GM/DL (32-36); Mean Corpuscular Hemoglobin 25 PG (27-34); Mean Corpuscular Volume 80.6 FL (87-102); Mean Platelet Volume 12.9 FL (9.6-12.0); Monocytes # 0.3 10*3/uL (0.11-0.8); Monocytes % 9.9 % (1.7-12.7); Neutrophils # 1.8 10*3/uL (1.4-7.4); Neutrophils % 61.6 % (38.7-73.9); Platelet Count 71 T/CUMM (130-400); Red Blood Count 3.77 MC/CUMM (3.8-5.5); Red Cell Distribution Width 16.3 % (9.3-17.3); White Blood Count 2.9 T/CUMM (4-12)
[2017-06-16 19:06] LABS: Apearance,Urine CLEAR (Clear); Bilirubin,Urine Negative (Negative); Blood, Urine Negative (Negative); Calcium Oxalate Crystals,Urine Occasional /HPF (Few); Glucose,Urine (UA) Negative (Negative); Ketones,Urine 5 mg/dL (Negative); Mucus,Urine Occasional /LPF (Occasional); Nitrite,Urine Negative (Negative); Protein,Urine Negative; RBC,Urine 2 /HPF (0-4); Squamous Epithelial Cell,Urine Occasional /HPF (0-10); Urine Color Yellow (Yellow); Urine Specific Gravity 1.017 (1.001-1.035); WBC,Urine 1 /HPF (0-6)
[2017-06-16 19:12] LABS: Albumin 2.9 G/DL (3.4-5.0); Bilirubin,Total 1.6 MG/DL (0.2-1.0); Calcium 8.5 MG/DL (8.5-10.1); Osmolality,Calculated 284.8 MOS/KG (273-304); Potassium 3.5 MMOL/L (3.5-5.1); Total Protein 6.2 G/DL (6.4-8.3)
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
--- NOTE | 2017-06-16 19:27 | XRay Report ---
XR ribs LT w pa chest Indication: Left rib cage pain status post injury. Mechanism of injury is not specified. Comparison: None. Technique: AP and oblique views of the left rib cage were obtained. Findings: There is no evidence of fracture, significant soft tissue abnormality overlying the left rib cage, or significant abnormality involving the left chest. Heart size is borderline. The visualized portion of the right lung parenchyma is unremarkable. TIPS catheter is present. Multiple postoperative changes left upper abdomen are noted. Endovascular coils are present in the left upper abdomen. Impression: 1. No radiographic abnormality is present to suggest etiology of left rib pain. 06/16/2017 6:26 PM PROCEDURE INTERPRETED AT [facility] DEPARTMENT OF RADIOLOGY Final Report Signed by: Dr. Moises Flowers
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
[2017-06-16 19:32] LABS: Barbiturates Screen,Urine Negative (Negative); Benzodiazepines Screen,Urine Negative (Negative); Cannabinoid Screen,Urine Negative (Negative); Opiate Screen,Urine Negative (Negative); Phencyclidine Screen,Urine Negative (Negative)
--- NOTE | 2017-06-16 19:32 | Ultrasound Report ---
US venous doppler UE LT Indication: Left arm swelling Comparison: None. Technique: Using a transcutaneous probe, grayscale, color Doppler, and spectral Doppler images of the left upper extremity venous structures were captured and stored. Images both with compression and no compression were obtained where possible. The left internal jugular vein and subclavian vein were additionally interrogated. Findings: There is no evidence of venous thrombus within the interrogated left upper extremity or neck. Left cephalic vein is not identified. Impression: 1. No evidence of deep venous thrombosis within the left upper extremity. 06/16/2017 7:30 PM PROCEDURE INTERPRETED AT [facility] DEPARTMENT OF RADIOLOGY Final Report Signed by: Dr. Moises Flowers
[2017-06-16 20:21] LABS: Eosinophils 2 % (0-10); Lymphocytes 23 % (20-55); Ovalocytes Slight; Platelet Estimate Decreased; Segmented Neutrophils 68 % (50-85); Total Cells Counted 100
[2017-06-16] MEDS ORDERED: MORPHINE 2 MG/1 ML SYRINGE IV STA (20:43)
[2017-06-16] MEDS ORDERED: LORazepam 2 MG/1 ML VIAL IV STA ×2 (20:43→20:46)
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
[2017-06-16] MEDS ORDERED: LORazepam 2 MG/1 ML VIAL ONE (20:45)
[2017-06-16] MEDS ORDERED: MORPHINE 2 MG/1 ML SYRINGE ONE (20:48)
--- NOTE | 2017-06-16 20:48 | Ultrasound Report ---
US venous doppler LE LT Indication: Left lower extremity pain and swelling. Comparison: None. Technique: Using transcutaneous probe, color Doppler, spectral Doppler, and grayscale images prior to and following compression were obtained of the left lower extremity. Ultrasound images were captured and stored. Interrogated venous structures include the left common femoral vein, superficial femoral vein (proximal, mid, and distal), and popliteal vein. Findings: There is no evidence of thrombus within the interrogated venous structures. color flow as well as spectral flow are present within the interrogated venous segments. Impression: 1. No evidence of venous thrombosis. 06/16/2017 8:45 PM PROCEDURE INTERPRETED AT [facility] DEPARTMENT OF RADIOLOGY Final Report Signed by: Dr. Moises Flowers
[2017-06-16] MEDS ORDERED: ACETAMINOPHEN 325 MG TABLET PO PRN (21:36)
[2017-06-16] MEDS ORDERED: ONDANSETRON 4 MG/2 ML VIAL IV PRN (21:36)
[2017-06-16] MEDS ORDERED: LORazepam 2 MG/1 ML VIAL IV PRN (21:36)
[2017-06-16] MEDS ORDERED: MORPHINE 2 MG/1 ML SYRINGE IV PRN (21:36)
[2017-06-17] MEDS: DOCUSATE SODIUM 100 MG CAPSULE PO SCH ×3 (01:11→20:37)
[2017-06-17] MEDS ORDERED: LACTULOSE 20 GM/30 ML UDCUP PO PRN (09:35)
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
[2017-06-17] MEDS: PANTOPRAZOLE 40 MG TABLET PO SCH (10:25)
[2017-06-17 10:50] LABS: Calcium 7.8 MG/DL (8.5-10.1); Osmolality,Calculated 286.7 MOS/KG (273-304); Potassium 3.6 MMOL/L (3.5-5.1)
[2017-06-17 11:05] LABS: Basophils % 0.3 % (0.0-0.8); Eosinophils # 0.2 10*3/uL (0.0-0.87); Eosinophils % 6.7 % (0.00-10.9); Hematocrit 29.8 VOL% (35.7-47.0); Hemoglobin 9.3 GM/DL (12.0-16.0); Immature Granulocytes % 0.3 %; Immature Granulocytes Absolute 0.01 #; Lymphocytes # 0.8 10*3/uL (1.4-4.0); Lymphocytes % 24.7 % (21.3-54.2); Mean Corpuscular HGB Conc 31.2 GM/DL (32-36); Mean Corpuscular Hemoglobin 25 PG (27-34); Mean Corpuscular Volume 81.2 FL (87-102); Mean Platelet Volume 12.2 FL (9.6-12.0); Monocytes # 0.3 10*3/uL (0.11-0.8); Monocytes % 8.7 % (1.7-12.7); Neutrophils # 1.9 10*3/uL (1.4-7.4); Neutrophils % 59.3 % (38.7-73.9); Red Blood Count 3.67 MC/CUMM (3.8-5.5); Red Cell Distribution Width 16.3 % (9.3-17.3); White Blood Count 3.1 T/CUMM (4-12)
[2017-06-17 11:08] LABS: Platelet Count 73 T/CUMM (130-400)
[2017-06-17 11:23] LABS: Hypochromasia 1+; Microcytosis 1+; Ovalocytes Few
[2017-06-17 11:24] LABS: Platelet Estimate Decreased
[2017-06-18 06:55] LABS: Basophils % 1.3 % (0.0-0.8); Eosinophils # 0.1 10*3/uL (0.0-0.87); Eosinophils % 8.8 % (0.00-10.9); Hematocrit 25.7 VOL% (35.7-47.0); Hemoglobin 8.1 GM/DL (12.0-16.0); Lymphocytes # 0.5 10*3/uL (1.4-4.0); Lymphocytes % 33.1 % (21.3-54.2); Mean Corpuscular HGB Conc 31.5 GM/DL (32-36); Mean Corpuscular Hemoglobin 25 PG (27-34); Mean Corpuscular Volume 80.6 FL (87-102); Mean Platelet Volume 14.1 FL (9.6-12.0); Monocytes # 0.2 10*3/uL (0.11-0.8); Monocytes % 9.4 % (1.7-12.7); Neutrophils # 0.8 10*3/uL (1.4-7.4); Neutrophils % 47.4 % (38.7-73.9); Red Blood Count 3.19 MC/CUMM (3.8-5.5); White Blood Count 1.6 T/CUMM (4-12)
[2017-06-18 06:57] LABS: Platelet Count 47 T/CUMM (130-400)
[2017-06-18 07:23] LABS: Calcium 7.8 MG/DL (8.5-10.1); Osmolality,Calculated 285.7 MOS/KG (273-304); Potassium 3.7 MMOL/L (3.5-5.1)
[2017-06-18 07:35] LABS: Hypochromasia 1+; Microcytosis 1+; Ovalocytes Slight
[2017-06-18 07:36] LABS: Platelet Estimate Decreased
[2017-06-18 08:00] LABS: Eosinophils 4 % (0-10); Lymphocytes 36 % (20-55); Segmented Neutrophils 52 % (50-85); Total Cells Counted 100
[2017-06-18] MEDS: PANTOPRAZOLE 40 MG TABLET PO SCH (09:51)
[2017-06-18] MEDS: DOCUSATE SODIUM 100 MG CAPSULE PO SCH (09:51)
--- NOTE | 2017-06-18 10:20 | Hospitalist Progress Note ---
Assessment and Plan (1) Anxiety Status: Acute Assessment and plan: I will start on clonazepam. Patient was planned to send to psych facility in [place] with help of her daughter. She had refused to go yesterday rollway worker is exploring about the options Current Visit: No (2) Leg pain, left Status: Acute Assessment and plan: Improving Current Visit: Yes (3) Pancytopenia Status: Chronic Assessment and plan: Patient has chronic and pancytopenia but noted her worsening of counts today we will consult hematology Current Visit: No (4) Primary biliary cirrhosis Status: Acute Assessment and plan: Patient has history of biliary cirrhosis but does not seem to have any encephalopathy . She had been on diuretics before which was stopped I will start on a lower dose including 20 mg Lasix and 50 mg of Aldactone Current Visit: No Hospitalist: Subjective Interval history: Patient is straight her pain in the leg is better . She also need to give her Lasix which she was at home and not getting here. When I asked her that I am going to look into that. She said if I do not give her she will take from her own and then started crying. I reviewed the old discharge summaries and see the patient she was on aspirin lactone and Lasix it was stopped due to lack of ascites and edema. She has history of biliary cirrhosis otherwise she is awake and alert. She also has that she thinks she needs something to help with her nerves Exam - Constitutional Vitals: Period Temp Pulse Resp BP Sys/Dailey Pulse Ox Last 24 Hr 97.0 F-98.0 F 72-78 14-22 102-124/51-70 94-98 General appearance: no acute distress - Respiratory Respiratory exam: Present: clear to auscultation bilaterally. Absent: rales, rhonchi - Cardiovascular Cardiovascular exam: Present: regular rate and rhythm. Absent: systolic murmur - GI/Abdominal GI/Abdominal exam: Present: normal bowel sounds, soft. Absent: distended, tenderness - Extremities Exam Extremities exam: Present: edema (Mild edema lower extremities), other (Jose right forearm. ) - Neurological Exam Neurological exam: Present: alert, oriented X3 - Psychiatric Psychiatric exam: Present: anxious (Emotionally labile) Results - Labs CBC & BMP: 06/18/17 06:43 06/18/17 06:43 Lab Results: I have reviewed the past 24 hour labs
[2017-06-18] MEDS: SPIRONOLACTONE 50 MG TABLET PO SCH (11:41)
[2017-06-18] MEDS: FUROSEMIDE 20 MG TABLET PO SCH (11:41)
[2017-06-18] MEDS: clonazePAM 0.5 MG TABLET PO SCH ×2 (11:43→20:45)
--- NOTE | 2017-06-18 16:21 | Hematology Consult ---
Assessment and Plan (1) Pancytopenia Status: Acute Assessment and plan: Her pancytopenia is most likely secondary to her long-standing liver disease. She reports that she has had low blood counts for quite a while. There is nothing to offer from a hematology standpoint that can correct this problem. I would recommend to transfuse as needed. Current Visit: Yes (2) Liver failure Status: Acute Current Visit: No (3) Thrombocytopenia Status: Acute Current Visit: No (4) Altered mental status Status: Acute Current Visit: No History of Present Illness - Consult Narrative History of present illness: Ms. Hernandez is a 66 year old female with long-standing liver disease who is currently on a transplant list who was admitted with altered mental status. She has long-standing pancytopenia secondary to her biliary cirrhosis. Hematology has been consulted to reevaluate her low blood counts. She states she has required transfusions before but is unsure if these were red cells or platelets. She states she has known that she has had low blood counts now for many years. She denies any bright red blood per rectum or melena. She states she has recently been evaluated for varices. She does have frequent bruising but no significant bleeding. Reviewing her previous lab work shows that her current CBC during his hospital stay his in line with her baseline. CC: Kevin Bains MD - Home Medications and Allergies Home Medications: Home Medications Medication Instructions Recorded Confirmed Type No Known Home Medications [No 06/18/17 06/18/17 History Known Home Medications] Allergies/Adverse Reactions: Allergies Allergy/AdvReac Type Severity Reaction Status Date / Time No Known Allergies Allergy Verified 01/10/17 16:25 Medical,Surgical,& Family Hx - Medical History Cardio: No history of: Cardiac Dysrhythmia, CAD, Hypertension, Pacemaker, PVD, Valvular Heart Disease Psychological: History of: Anxiety Disorders, Previous Suicide Attempt ( June 2016- drug OD), Psychiatric Problems Neurology: No history of: Cerebral Hemorrhage, Dementia, Peripheral Neuropathy, Seizures , TIA Endocrine: History of: Thyroid Disorder No history of: Diabetes Mellitus (IDDM), Diabetes Mellitus (NIDDM) Rheumatology: No history of;: Fibromyalgia, Gout, Rheumatoid Arthritis Respiratory: History of: Intubation (for airway protection after drug OD; no prolonged ventilation) No history of: Asthma, Bronchitis, COPD, Obstructive Sleep Apnea Genitourinary: History of: Bladder Problem (incontinance) Gastrointestinal: History of: Hepatitis, Liver Problems (has liver failure. Is on the liver transplant list but not high scale yet), Polyps Hematology: History of: Anemia No history of: Blood Transfusion Reaction - Surgical History Cardiac Surgeries: Sugical HX of: Cardiac Catheterization (January 2012) Neurologic Surgeries: Patient denies: Cerebral Hemorrhage, Neurologic Surgery HEENT Surgeries: Surgical HX of: Tonsilectomy & Adenoidectomy Abdominal Surgeries: Surgical HX of: Appendectomy - Family History Family History: Reports;: Family Cancer (FATHER), Family Diabetes (BROTHER), Family Heart Disease (MOTHER, BROTHER, SISTERS), Family Hypertension Denies;: Family Anesthesia Reaction, Family Psychiatric Problems - Social History Smoking Status: Never smoker Frequency of Alcohol Use: None Type of Drug Use: None 12 point system: reviewed and no additional remarkable complaints except as stated - Constitutional Constitutional: Present: fatigue Exam - Constitutional Vitals: Period Temp Pulse Resp BP Sys/Dailey Pulse Ox Last 24 Hr 96 F-97.9 F 72-84 14-22 102-145/51-79 94-99 General appearance: normal weight, no acute distress - Head Head Exam: Present: normocephalic, atraumatic - Eye Eye Exam: Present: EOMI Pupils: Present: PERRL - ENT ENT exam: Present: normal exam, normal oropharynx - Neck Neck exam: Absent: lymphadenopathy, thyromegaly - Respiratory Respiratory exam: Present: CTAB. Absent: wheezes - Cardiovascular Cardiovascular exam: Present: RRR. Absent: JVD, systolic murmur - GI/Abdominal GI/Abdominal exam: Present: soft. Absent: ascites, distended, firm, mass - Neurological Exam Neurological exam: Present: alert, oriented X3 - Psychiatric Psychiatric exam: Present: normal affect, normal mood - Skin Skin exam: Present: warm, dry Results - Labs CBC & BMP: 06/18/17 06:43 06/18/17 06:43 Lab Results: I have reviewed the past 24 hour labs
[2017-06-19] MEDS: DOCUSATE SODIUM 100 MG CAPSULE PO SCH ×2 (02:07→09:53)
[2017-06-19 06:15] LABS: Basophils % 0.5 % (0.0-0.8); Eosinophils # 0.2 10*3/uL (0.0-0.87); Eosinophils % 9.2 % (0.00-10.9); Hematocrit 25.3 VOL% (35.7-47.0); Hemoglobin 7.9 GM/DL (12.0-16.0); Lymphocytes # 0.7 10*3/uL (1.4-4.0); Lymphocytes % 30.9 % (21.3-54.2); Mean Corpuscular HGB Conc 31.2 GM/DL (32-36); Mean Corpuscular Hemoglobin 25 PG (27-34); Mean Corpuscular Volume 80.1 FL (87-102); Mean Platelet Volume 12.9 FL (9.6-12.0); Monocytes # 0.2 10*3/uL (0.11-0.8); Monocytes % 7.8 % (1.7-12.7); Neutrophils # 1.1 10*3/uL (1.4-7.4); Neutrophils % 51.6 % (38.7-73.9); Red Blood Count 3.16 MC/CUMM (3.8-5.5); Red Cell Distribution Width 16.2 % (9.3-17.3); White Blood Count 2.2 T/CUMM (4-12)
[2017-06-19 06:19] LABS: Platelet Count 54 T/CUMM (130-400)
[2017-06-19 06:45] LABS: Giant Platelets Few; Hypochromasia 1+; Microcytosis 1+; Ovalocytes Slight; Platelet Estimate Decreased
[2017-06-19 06:49] LABS: Calcium 7.8 MG/DL (8.5-10.1); Osmolality,Calculated 287.6 MOS/KG (273-304); Potassium 3.7 MMOL/L (3.5-5.1)
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
[2017-06-19] MEDS: PANTOPRAZOLE 40 MG TABLET PO SCH (09:53)
[2017-06-19] MEDS: FUROSEMIDE 20 MG TABLET PO SCH (09:54)
[2017-06-19] MEDS: SPIRONOLACTONE 50 MG TABLET PO SCH (09:55)
[2017-06-19] MEDS: clonazePAM 0.5 MG TABLET PO SCH (09:55)
[2017-06-24 17:00] VITALS: BP 105/60
== END 2017-06-19 13:07 | disposition home or self-care (01) ==
LOC: EDUNIT# → EDBD → N.EDINP 16:36 → N.ED 16:36 → SUATTDRO 20:45 → N.EDINP 21:22 → N.2E 21:39
PROVIDERS: ADMIT Family Medicine; ATTEND Family Medicine

== ENCOUNTER 2018-03-17 12:48 | Inpatient (IN) ==
[2018-03-17] MEDS ORDERED: SODIUM CHLORIDE 0.9% 500 ML IV STA (13:39)
[2018-03-17] MEDS ORDERED: ONDANSETRON 4 MG/2 ML VIAL IV STA (13:39)
[2018-03-17 15:44] LABS: Apearance,Urine CLEAR (Clear); Bilirubin,Urine Negative (Negative); Blood, Urine Negative (Negative); Glucose,Urine (UA) Negative (Negative); Ketones,Urine 5 mg/dL (Negative); Mucus,Urine Occasional /LPF (Occasional); Nitrite,Urine Negative (Negative); Protein,Urine Negative; RBC,Urine <1 /HPF (0-4); Squamous Epithelial Cell,Urine Occasional /HPF (0-10); Urine Color Yellow (Yellow); Urine Specific Gravity 1.016 (1.001-1.035)
[2018-03-17 16:26] LABS: INR 1.3; PT Patient Result 13.4 SECS; Partial Thromboplastin Time 27.5 SECS (0-40)
[2018-03-17 16:44] LABS: Albumin 2.6 G/DL (3.4-5.0); Bilirubin,Total 1.9 MG/DL (0.2-1.0); Calcium 8.4 MG/DL (8.5-10.1); Osmolality,Calculated 285.8 MOS/KG (273-304); Potassium 4.3 MMOL/L (3.5-5.1); Total Protein 6.2 G/DL (6.4-8.3)
[2018-03-17] MEDS ORDERED: DOCUSATE SODIUM 100 MG CAPSULE PO PRN (18:44)
[2018-03-17] MEDS ORDERED: clonazePAM 0.5 MG TABLET PO PRN (18:48)
[2018-03-17 20:58] LABS: Eosinophils # 0.2 10*3/uL (0.0-0.87); Eosinophils % 7.2 % (0.00-10.9); Hematocrit 35.1 VOL% (35.7-47.0); Hemoglobin 11.4 GM/DL (12.0-16.0); Immature Granulocytes % 0.3 %; Immature Granulocytes Absolute 0.01 #; Lymphocytes # 0.9 10*3/uL (1.4-4.0); Lymphocytes % 29.1 % (21.3-54.2); Mean Corpuscular HGB Conc 32.5 GM/DL (32-36); Mean Corpuscular Hemoglobin 30 PG (27-34); Mean Corpuscular Volume 90.7 FL (87-102); Mean Platelet Volume 12.3 FL (9.6-12.0); Monocytes # 0.2 10*3/uL (0.11-0.8); Monocytes % 7.5 % (1.7-12.7); Neutrophils # 1.7 10*3/uL (1.4-7.4); Neutrophils % 54.9 % (38.7-73.9); Red Blood Count 3.87 MC/CUMM (3.8-5.5); White Blood Count 3.1 T/CUMM (4-12)
[2018-03-17 20:59] LABS: Platelet Count 61 T/CUMM (130-400)
[2018-03-17] MEDS: FERROUS SULFATE 325 MG TABLET PO SCH (22:34)
[2018-03-17] MEDS: LACTULOSE 20 GM/30 ML UDCUP PO SCH (22:34)
[2018-03-17] MEDS: ONDANSETRON 4 MG/2 ML VIAL IV PRN (22:54)
[2018-03-18] MEDS: ONDANSETRON 4 MG/2 ML VIAL IV PRN ×2 (05:28→18:09)
[2018-03-18] MEDS: LEVOTHYROXINE 75 MCG TABLET PO SCH (07:42)
[2018-03-18] MEDS: PANTOPRAZOLE 40 MG TABLET PO SCH ×2 (07:42→08:34)
[2018-03-18] MEDS: FUROSEMIDE 40 MG TABLET PO SCH (08:34)
[2018-03-18] MEDS: LACTULOSE 20 GM/30 ML UDCUP PO SCH (08:34)
[2018-03-18] MEDS: FERROUS SULFATE 325 MG TABLET PO SCH ×2 (08:34→21:01)
[2018-03-18] MEDS ORDERED: LACTULOSE 20 GM/30 ML UDCUP PO SCH (15:00)
[2018-03-18] MEDS ORDERED: PROMETHAZINE 25 MG/1 ML VIAL IM ONE (19:01)
[2018-03-18] MEDS ORDERED: LACTULOSE 20 GM/30 ML UDCUP PO ONE (19:01)
[2018-03-18] MEDS ORDERED: SODIUM CHLORIDE 0.9% 1,000 ML IV PRN (19:18)
[2018-03-19] MEDS: LEVOTHYROXINE 75 MCG TABLET PO SCH ×2 (06:06→06:08)
[2018-03-19 07:30] LABS: Basophils % 0.5 % (0.0-0.8); Eosinophils # 0.2 10*3/uL (0.0-0.87); Eosinophils % 4.3 % (0.00-10.9); Hematocrit 34.2 VOL% (35.7-47.0); Hemoglobin 11.6 GM/DL (12.0-16.0); Immature Granulocytes % 0.3 %; Immature Granulocytes Absolute 0.01 #; Lymphocytes # 0.7 10*3/uL (1.4-4.0); Lymphocytes % 16.4 % (21.3-54.2); Mean Corpuscular HGB Conc 33.9 GM/DL (32-36); Mean Corpuscular Hemoglobin 30 PG (27-34); Mean Corpuscular Volume 88.1 FL (87-102); Mean Platelet Volume 12.2 FL (9.6-12.0); Monocytes # 0.3 10*3/uL (0.11-0.8); Monocytes % 8.1 % (1.7-12.7); Neutrophils # 2.8 10*3/uL (1.4-7.4); Neutrophils % 70.4 % (38.7-73.9); Red Blood Count 3.88 MC/CUMM (3.8-5.5); Red Cell Distribution Width 15.8 % (9.3-17.3)
[2018-03-19 07:34] LABS: Platelet Count 57 T/CUMM (130-400)
[2018-03-19 08:13] LABS: Hypochromasia 1+; Microcytosis 1+; Ovalocytes Few
[2018-03-19 08:14] LABS: Platelet Estimate Decreased
[2018-03-19] MEDS ORDERED: LACTULOSE 160 GM/240 ML BOTTLE RECTAL SCH (08:45)
[2018-03-19] MEDS ORDERED: RIFAXIMIN 550 MG TABLET PO SCH (09:00)
[2018-03-19 09:01] LABS: Albumin 2.2 G/DL (3.4-5.0); Bilirubin,Total 1.4 MG/DL (0.2-1.0); Calcium 8.2 MG/DL (8.5-10.1); Osmolality,Calculated 284.8 MOS/KG (273-304); Potassium 3.8 MMOL/L (3.5-5.1); Total Protein 5.4 G/DL (6.4-8.3)
[2018-03-19] MEDS: PANTOPRAZOLE 40 MG TABLET PO SCH (10:33)
[2018-03-19] MEDS: FUROSEMIDE 80 MG TABLET PO SCH (10:33)
[2018-03-19] MEDS: FERROUS SULFATE 325 MG TABLET PO SCH ×2 (10:33→21:44)
[2018-03-19] MEDS: RIFAXIMIN 550 MG TABLET PO SCH ×2 (10:34→21:44)
[2018-03-19] MEDS ORDERED: LORazepam 2 MG/1 ML VIAL IV ONE (11:17)
[2018-03-19] MEDS: LACTULOSE 20 GM/30 ML UDCUP PO SCH ×4 (12:53→21:44)
[2018-03-20] MEDS: LACTULOSE 20 GM/30 ML UDCUP PO SCH ×6 (02:56→22:15)
[2018-03-20] MEDS: LEVOTHYROXINE 75 MCG TABLET PO SCH (06:13)
[2018-03-20 08:09] LABS: Eosinophils # 0.3 10*3/uL (0.0-0.87); Eosinophils % 11.2 % (0.00-10.9); Hematocrit 35.7 VOL% (35.7-47.0); Hemoglobin 11.7 GM/DL (12.0-16.0); Immature Granulocytes % 0.3 %; Immature Granulocytes Absolute 0.01 #; Lymphocytes # 0.7 10*3/uL (1.4-4.0); Lymphocytes % 24.7 % (21.3-54.2); Mean Corpuscular HGB Conc 32.8 GM/DL (32-36); Mean Corpuscular Hemoglobin 29 PG (27-34); Mean Corpuscular Volume 89.7 FL (87-102); Mean Platelet Volume 12.3 FL (9.6-12.0); Monocytes # 0.3 10*3/uL (0.11-0.8); Monocytes % 8.8 % (1.7-12.7); Neutrophils # 1.6 10*3/uL (1.4-7.4); Red Blood Count 3.98 MC/CUMM (3.8-5.5); Red Cell Distribution Width 15.8 % (9.3-17.3)
[2018-03-20 08:12] LABS: Platelet Count 57 T/CUMM (130-400)
[2018-03-20 08:23] LABS: Albumin 2.1 G/DL (3.4-5.0); Bilirubin,Total 1.6 MG/DL (0.2-1.0); Osmolality,Calculated 287.7 MOS/KG (273-304); Total Protein 5.4 G/DL (6.4-8.3)
[2018-03-20 08:35] LABS: Eosinophils 6 % (0-10); Hypochromasia 1+; Lymphocytes 25 % (20-55); Ovalocytes Slight; Platelet Estimate Decreased; Segmented Neutrophils 59 % (50-85); Total Cells Counted 100
[2018-03-20 08:36] LABS: Microcytosis Slight
[2018-03-20] MEDS: FERROUS SULFATE 325 MG TABLET PO SCH ×2 (09:09→20:47)
[2018-03-20] MEDS: PANTOPRAZOLE 40 MG TABLET PO SCH (09:09)
[2018-03-20] MEDS: RIFAXIMIN 550 MG TABLET PO SCH ×2 (09:10→20:47)
[2018-03-20] MEDS: FUROSEMIDE 40 MG TABLET PO SCH (09:10)
[2018-03-20] MEDS: ONDANSETRON 4 MG/2 ML VIAL IV PRN ×4 (09:38→21:43)
[2018-03-20] MEDS ORDERED: ZINC OXIDE PASTE 113 GM TUBE TOP PRN (16:53)
[2018-03-21] MEDS: LACTULOSE 20 GM/30 ML UDCUP PO SCH ×6 (02:00→21:50)
[2018-03-21] MEDS ORDERED: MORPHINE 4 MG/1 ML VIAL IV ONE (03:15)
[2018-03-21] MEDS: LEVOTHYROXINE 75 MCG TABLET PO SCH ×2 (06:01→09:32)
[2018-03-21] MEDS: FUROSEMIDE 80 MG TABLET PO SCH (09:32)
[2018-03-21] MEDS: ONDANSETRON 4 MG/2 ML VIAL IV PRN ×4 (09:32→21:21)
[2018-03-21] MEDS: PANTOPRAZOLE 40 MG TABLET PO SCH (09:32)
[2018-03-21] MEDS: FERROUS SULFATE 325 MG TABLET PO SCH ×2 (09:32→21:21)
[2018-03-21] MEDS: RIFAXIMIN 550 MG TABLET PO SCH ×2 (09:32→21:21)
[2018-03-22] MEDS: ONDANSETRON 4 MG/2 ML VIAL IV PRN ×6 (01:19→21:52)
[2018-03-22] MEDS: LACTULOSE 20 GM/30 ML UDCUP PO SCH ×6 (02:02→21:54)
[2018-03-22] MEDS: LEVOTHYROXINE 75 MCG TABLET PO SCH (05:59)
[2018-03-22] MEDS: RIFAXIMIN 550 MG TABLET PO SCH ×2 (09:52→21:54)
[2018-03-22] MEDS: FUROSEMIDE 40 MG TABLET PO SCH (09:52)
[2018-03-22] MEDS: PANTOPRAZOLE 40 MG TABLET PO SCH (09:52)
[2018-03-22] MEDS: FERROUS SULFATE 325 MG TABLET PO SCH ×2 (09:52→21:54)
[2018-03-23] MEDS: LACTULOSE 20 GM/30 ML UDCUP PO SCH ×6 (02:07→21:26)
[2018-03-23] MEDS: LEVOTHYROXINE 75 MCG TABLET PO SCH (07:00)
[2018-03-23] MEDS ORDERED: LIDOCAINE 2% 5 ML VIAL ONE (10:00)
[2018-03-23] MEDS ORDERED: PROPOFOL 200 MG/20 ML VIAL IV ONE (10:00)
[2018-03-23] MEDS: ONDANSETRON 4 MG/2 ML VIAL IV PRN ×3 (10:18→20:31)
[2018-03-23] MEDS: RIFAXIMIN 550 MG TABLET PO SCH ×2 (10:20→20:31)
[2018-03-23] MEDS: FERROUS SULFATE 325 MG TABLET PO SCH ×2 (10:21→20:31)
[2018-03-23] MEDS: PANTOPRAZOLE 40 MG TABLET PO SCH (10:21)
[2018-03-23] MEDS: FUROSEMIDE 80 MG TABLET PO SCH (10:25)
[2018-03-23] MEDS ORDERED: ceFAZolin 1,000 MG in SYRINGE 1 EACH IV ONE (12:28)
[2018-03-23] MEDS ORDERED: TISSUE ADHESIVE 1 EACH APPLICATOR TOP ONE (13:09)
[2018-03-23] MEDS ORDERED: HEPARIN 5,000 UNIT/1 ML VIAL ONE (13:09)
[2018-03-23] MEDS ORDERED: LIDOCAINE 1%/EPI INJ 20 ML VIAL ONE (13:09)
[2018-03-23] MEDS ORDERED: BUPIVACAINE MPF 0.25% /EPI 30 ML VIAL ONE (13:09)
[2018-03-23] MEDS ORDERED: MIDAZOLAM 2 MG/2 ML VIAL ONE (14:18)
[2018-03-23] MEDS ORDERED: fentaNYL 100 MCG/2 ML VIAL ONE (14:18)
[2018-03-24] MEDS: ONDANSETRON 4 MG/2 ML VIAL IV PRN ×3 (02:33→08:54)
[2018-03-24] MEDS: LACTULOSE 20 GM/30 ML UDCUP PO SCH ×3 (02:33→09:02)
[2018-03-24] MEDS: LEVOTHYROXINE 75 MCG TABLET PO SCH (05:55)
[2018-03-24 06:09] LABS: Eosinophils # 0.3 10*3/uL (0.0-0.87); Eosinophils % 10.5 % (0.00-10.9); Hematocrit 38.9 VOL% (35.7-47.0); Hemoglobin 12.8 GM/DL (12.0-16.0); Immature Granulocytes % 0.3 %; Immature Granulocytes Absolute 0.01 #; Lymphocytes # 0.6 10*3/uL (1.4-4.0); Mean Corpuscular HGB Conc 32.9 GM/DL (32-36); Mean Corpuscular Hemoglobin 29 PG (27-34); Mean Corpuscular Volume 89.2 FL (87-102); Mean Platelet Volume 13.3 FL (9.6-12.0); Monocytes # 0.2 10*3/uL (0.11-0.8); Monocytes % 6.2 % (1.7-12.7); Neutrophils # 1.9 10*3/uL (1.4-7.4); Platelet Count 65 T/CUMM (130-400); Red Blood Count 4.36 MC/CUMM (3.8-5.5); White Blood Count 3.1 T/CUMM (4-12)
[2018-03-24 07:00] LABS: Giant Platelets Few; Hypochromasia Slight; Platelet Estimate Decreased
[2018-03-24 07:01] LABS: Microcytosis Slight
[2018-03-24 08:03] VITALS: BP 116/72
[2018-03-24] MEDS: FERROUS SULFATE 325 MG TABLET PO SCH (08:53)
[2018-03-24] MEDS: FUROSEMIDE 40 MG TABLET PO SCH (08:53)
[2018-03-24] MEDS: RIFAXIMIN 550 MG TABLET PO SCH (08:53)
[2018-03-24] MEDS: PANTOPRAZOLE 40 MG TABLET PO SCH (08:53)
== END 2018-03-24 11:30 | disposition home or self-care (01) | DRG 443 ==
LOC: EDUNIT# → N.EDINP 12:48 → N.ED 12:48 → N.2E 19:56 → SUATTDRO 03-19 10:11
PROVIDERS: ADMIT Internal Medicine; ATTEND Internal Medicine

== ENCOUNTER 2018-07-08 09:58 | Inpatient (IN) ==
[2018-07-08 10:55] LABS: Basophils % 0.5 % (0.0-0.8); Eosinophils # 0.2 10*3/uL (0.0-0.87); Eosinophils % 3.7 % (0.00-10.9); Hematocrit 33.2 VOL% (35.7-47.0); Immature Granulocytes % 0.7 %; Immature Granulocytes Absolute 0.03 #; Lymphocytes # 0.5 10*3/uL (1.4-4.0); Lymphocytes % 11.5 % (21.3-54.2); Mean Corpuscular HGB Conc 33.1 GM/DL (32-36); Mean Corpuscular Hemoglobin 32 PG (27-34); Mean Corpuscular Volume 95.4 FL (87-102); Mean Platelet Volume 12.1 FL (9.6-12.0); Monocytes # 0.3 10*3/uL (0.11-0.8); Monocytes % 5.7 % (1.7-12.7); Neutrophils # 3.4 10*3/uL (1.4-7.4); Neutrophils % 77.9 % (38.7-73.9); Platelet Count 51 T/CUMM (130-400); Red Blood Count 3.48 MC/CUMM (3.8-5.5); Red Cell Distribution Width 15.8 % (9.3-17.3); White Blood Count 4.4 T/CUMM (4-12)
[2018-07-08 11:06] LABS: Albumin 2.5 G/DL (3.4-5.0); Calcium 8.6 MG/DL (8.5-10.1); Potassium 3.9 MMOL/L (3.5-5.1); Total Protein 5.5 G/DL (6.4-8.3)
[2018-07-08 11:42] LABS: Platelet Estimate Decreased
[2018-07-08] MEDS ORDERED: ONDANSETRON 4 MG/2 ML VIAL IV PRN (12:47)
[2018-07-08] MEDS ORDERED: RIFAXIMIN 550 MG TABLET PO PRN (13:23)
[2018-07-08] MEDS ORDERED: MAGNESIUM SULF RIDER 2 GM in PREMIX 1 EACH IV PRN (13:38)
[2018-07-08] MEDS ORDERED: MAGNESIUM SULF RIDER 4 GM in PREMIX 1 EACH IV PRN (13:38)
[2018-07-08] MEDS ORDERED: LACTULOSE 20 GM/30 ML UDCUP PO SCH (15:00)
[2018-07-08] MEDS ORDERED: SERTRALINE 25 MG TABLET PO ONE (17:30)
[2018-07-08] MEDS: FUROSEMIDE 40 MG/4 ML VIAL IV SCH (17:45)
[2018-07-08 19:14] LABS: Troponin I < 0.015 NG/ML (0.00-0.045)
[2018-07-08 19:14] LABS: Barbiturates Screen,Urine Negative (Negative); Benzodiazepines Screen,Urine Negative (Negative); Cannabinoid Screen,Urine Negative (Negative); Opiate Screen,Urine Negative (Negative); Phencyclidine Screen,Urine Negative (Negative)
[2018-07-08] MEDS: RIFAXIMIN 550 MG TABLET PO SCH (21:41)
[2018-07-08] MEDS: SERTRALINE 25 MG TABLET PO SCH (21:42)
[2018-07-08] MEDS: FERROUS SULFATE 325 MG TABLET PO SCH (21:42)
[2018-07-08] MEDS: LACTULOSE 20 GM/30 ML UDCUP PO SCH (23:51)
[2018-07-09 05:16] LABS: Basophils % 0.9 % (0.0-0.8); Eosinophils # 0.2 10*3/uL (0.0-0.87); Eosinophils % 5.3 % (0.00-10.9); Hematocrit 30.6 VOL% (35.7-47.0); Hemoglobin 10.5 GM/DL (12.0-16.0); Immature Granulocytes % 0.5 %; Immature Granulocytes Absolute 0.02 #; Lymphocytes # 0.7 10*3/uL (1.4-4.0); Lymphocytes % 17.1 % (21.3-54.2); Mean Corpuscular HGB Conc 34.3 GM/DL (32-36); Mean Corpuscular Hemoglobin 32 PG (27-34); Mean Corpuscular Volume 93.6 FL (87-102); Mean Platelet Volume 12.7 FL (9.6-12.0); Monocytes # 0.3 10*3/uL (0.11-0.8); Monocytes % 6.2 % (1.7-12.7); Platelet Count 55 T/CUMM (130-400); Red Blood Count 3.27 MC/CUMM (3.8-5.5); Red Cell Distribution Width 15.8 % (9.3-17.3); White Blood Count 4.3 T/CUMM (4-12)
[2018-07-09 05:19] LABS: INR 1.2; PT Patient Result 12.7 SECS
[2018-07-09 05:46] LABS: Albumin 2.2 G/DL (3.4-5.0); Bilirubin,Total 1.2 MG/DL (0.2-1.0); Calcium 7.5 MG/DL (8.5-10.1); Osmolality,Calculated 285.7 MOS/KG (273-304); Potassium 3.4 MMOL/L (3.5-5.1); Total Protein 4.8 G/DL (6.4-8.3)
[2018-07-09 05:50] LABS: Calcium 7.4 MG/DL (8.5-10.1); Osmolality,Calculated 287.6 MOS/KG (273-304); Potassium 3.5 MMOL/L (3.5-5.1)
[2018-07-09 05:56] LABS: Hypochromasia 1+; Microcytosis Slight; Ovalocytes Slight; Platelet Estimate Decreased
[2018-07-09 05:59] LABS: Troponin I < 0.015 NG/ML (0.00-0.045)
[2018-07-09] MEDS: LEVOTHYROXINE 75 MCG TABLET PO SCH (06:15)
[2018-07-09] MEDS: LACTULOSE 20 GM/30 ML UDCUP PO SCH ×4 (06:16→20:35)
[2018-07-09] MEDS ORDERED: PANTOPRAZOLE 40 MG TABLET PO SCH (09:00)
[2018-07-09] MEDS ORDERED: MAGNESIUM SULF RIDER 2 GM in PREMIX 1 EACH IV ONE (09:00)
[2018-07-09] MEDS: FUROSEMIDE 40 MG/4 ML VIAL IV SCH ×2 (09:25→16:07)
[2018-07-09] MEDS: PANTOPRAZOLE 40 MG TABLET PO SCH (09:25)
[2018-07-09] MEDS: RIFAXIMIN 550 MG TABLET PO SCH ×2 (09:26→20:37)
[2018-07-09] MEDS: SPIRONOLACTONE 100 MG TABLET PO SCH (09:26)
[2018-07-09] MEDS ORDERED: POTASSIUM CHLORIDE RIDER 10 MEQ in PREMIX 1 EACH IV PRN (11:19)
[2018-07-09] MEDS: POTASSIUM CHLORIDE 20 MEQ TABLET PO PRN ×2 (16:07→18:05)
[2018-07-09] MEDS: SERTRALINE 25 MG TABLET PO SCH (20:37)
[2018-07-10] MEDS: LACTULOSE 20 GM/30 ML UDCUP PO SCH ×3 (02:25→16:09)
[2018-07-10] MEDS: LEVOTHYROXINE 75 MCG TABLET PO SCH (05:32)
[2018-07-10] MEDS: RIFAXIMIN 550 MG TABLET PO SCH ×2 (08:44→20:26)
[2018-07-10] MEDS: SPIRONOLACTONE 100 MG TABLET PO SCH (08:45)
[2018-07-10] MEDS: PANTOPRAZOLE 40 MG TABLET PO SCH (08:45)
[2018-07-10] MEDS: FUROSEMIDE 40 MG/4 ML VIAL IV SCH (08:45)
[2018-07-10] MEDS ORDERED: LACTULOSE 20 GM/30 ML UDCUP PO PRN (15:25)
[2018-07-10] MEDS: FUROSEMIDE 40 MG TABLET PO SCH (16:30)
[2018-07-10] MEDS ORDERED: SERTRALINE 25 MG TABLET PO SCH (21:00)
[2018-07-11] MEDS: LEVOTHYROXINE 75 MCG TABLET PO SCH (06:20)
[2018-07-11 07:09] VITALS: BP 105/57
[2018-07-11] MEDS: FUROSEMIDE 40 MG TABLET PO SCH (09:38)
[2018-07-11] MEDS: RIFAXIMIN 550 MG TABLET PO SCH (09:38)
[2018-07-11] MEDS: PANTOPRAZOLE 40 MG TABLET PO SCH (09:38)
[2018-07-11] MEDS: FERROUS SULFATE 325 MG TABLET PO SCH (09:38)
[2018-07-11] MEDS: SPIRONOLACTONE 100 MG TABLET PO SCH (09:38)
== END 2018-07-11 12:08 | disposition home or self-care (01) | DRG 443 ==
LOC: EDBD → EDUNIT# → N.ED 09:58 → SUATTDRO 12:47 → N.EDINP 12:47 → N.2E 14:06
PROVIDERS: ATTEND Hospitalist

== ENCOUNTER 2018-08-11 08:14 | Inpatient (IN) ==
[2018-08-11] MEDS ORDERED: ONDANSETRON ODT 4 MG TABLET PO ONE (08:56)
[2018-08-11] MEDS ORDERED: ONDANSETRON ODT 4 MG TABLET PO STA (08:58)
[2018-08-11 09:26] LABS: Basophils % 0.6 % (0.0-0.8); Eosinophils # 0.2 10*3/uL (0.0-0.87); Eosinophils % 3.8 % (0.00-10.9); Hematocrit 35.2 VOL% (35.7-47.0); Hemoglobin 11.9 GM/DL (12.0-16.0); Immature Granulocytes % 0.4 %; Immature Granulocytes Absolute 0.02 #; Lymphocytes # 0.6 10*3/uL (1.4-4.0); Lymphocytes % 11.1 % (21.3-54.2); Mean Corpuscular HGB Conc 33.8 GM/DL (32-36); Mean Corpuscular Hemoglobin 32 PG (27-34); Mean Corpuscular Volume 95.4 FL (87-102); Monocytes # 0.2 10*3/uL (0.11-0.8); Monocytes % 4.6 % (1.7-12.7); Neutrophils # 4.2 10*3/uL (1.4-7.4); Neutrophils % 79.5 % (38.7-73.9); Platelet Count 59 T/CUMM (130-400); Red Blood Count 3.69 MC/CUMM (3.8-5.5); Red Cell Distribution Width 15.3 % (9.3-17.3); White Blood Count 5.2 T/CUMM (4-12)
[2018-08-11 09:46] LABS: Albumin 2.7 G/DL (3.4-5.0); Bilirubin,Total 1.2 MG/DL (0.2-1.0); Calcium 7.8 MG/DL (8.5-10.1); Potassium 3.8 MMOL/L (3.5-5.1); Total Protein 5.9 G/DL (6.4-8.3)
[2018-08-11 09:50] LABS: Apearance,Urine CLEAR (Clear); Bacteria,Urine Occasional /HPF (Few); Bilirubin,Urine Negative (Negative); Blood, Urine Negative (Negative); Glucose,Urine (UA) Negative (Negative); Ketones,Urine Negative (Negative); Nitrite,Urine Negative (Negative); Protein,Urine Negative; Squamous Epithelial Cell,Urine Occasional /HPF (0-10); Urine Color Yellow (Yellow); Urine Specific Gravity 1.009 (1.001-1.035); Urine Urobilinogen < 2.0 EU/DL (0.2-1.0); WBC,Urine 1 /HPF (0-6)
[2018-08-11 09:58] LABS: Hypochromasia 1+; Ovalocytes Slight; Platelet Estimate Decreased
[2018-08-11 09:59] LABS: Microcytosis Slight
[2018-08-11] MEDS ORDERED: ACETAMINOPHEN 325 MG TABLET PO PRN (11:00)
[2018-08-11] MEDS ORDERED: [UNRECOGNIZED DRUG - OTHER] PO SCH (13:30)
[2018-08-11] MEDS: ONDANSETRON 4 MG/2 ML VIAL IV PRN ×2 (14:26→21:08)
[2018-08-11] MEDS ORDERED: LACTULOSE 20 GM/30 ML UDCUP PO SCH (16:00)
[2018-08-11] MEDS: FUROSEMIDE 40 MG/4 ML VIAL IV SCH (16:02)
[2018-08-11] MEDS ORDERED: ENOXAPARIN 40 MG/0.4 ML SYRINGE SUBCUT SCH (21:00)
[2018-08-11] MEDS: LACTULOSE 20 GM/30 ML UDCUP PO SCH (21:08)
[2018-08-11] MEDS: metroNIDAZOLE 250 MG TABLET PO SCH (21:09)
[2018-08-12 05:39] LABS: Basophils % 0.5 % (0.0-0.8); Eosinophils # 0.2 10*3/uL (0.0-0.87); Eosinophils % 6.2 % (0.00-10.9); Hematocrit 29.9 VOL% (35.7-47.0); Immature Granulocytes % 1.6 %; Immature Granulocytes Absolute 0.06 #; Lymphocytes # 0.8 10*3/uL (1.4-4.0); Lymphocytes % 20.5 % (21.3-54.2); Mean Corpuscular HGB Conc 33.1 GM/DL (32-36); Mean Corpuscular Hemoglobin 32 PG (27-34); Mean Corpuscular Volume 96.5 FL (87-102); Mean Platelet Volume 11.9 FL (9.6-12.0); Monocytes # 0.3 10*3/uL (0.11-0.8); Monocytes % 8.6 % (1.7-12.7); Neutrophils # 2.3 10*3/uL (1.4-7.4); Neutrophils % 62.6 % (38.7-73.9); Platelet Count 52 T/CUMM (130-400); Red Cell Distribution Width 15.7 % (9.3-17.3); White Blood Count 3.7 T/CUMM (4-12)
[2018-08-12 05:42] LABS: Hemoglobin 9.9 GM/DL (12.0-16.0); INR 1.3; PT Patient Result 13.3 SECS
[2018-08-12 05:55] LABS: Albumin 2.1 G/DL (3.4-5.0); Bilirubin,Total 1.5 MG/DL (0.2-1.0); Calcium 7.6 MG/DL (8.5-10.1); Osmolality,Calculated 282.8 MOS/KG (273-304); Potassium 3.3 MMOL/L (3.5-5.1); Total Protein 4.8 G/DL (6.4-8.3)
[2018-08-12 06:05] LABS: Platelet Estimate Decreased
[2018-08-12 06:06] LABS: Hypochromasia Slight
[2018-08-12] MEDS ORDERED: LEVOTHYROXINE 75 MCG TABLET PO SCH (06:30)
[2018-08-12] MEDS ORDERED: MAGNESIUM SULF RIDER 4 GM in PREMIX 1 EACH IV PRN (07:10)
[2018-08-12] MEDS ORDERED: MAGNESIUM SULF RIDER 2 GM in PREMIX 1 EACH IV PRN (07:10)
[2018-08-12 07:27] VITALS: BP 100/52
[2018-08-12] MEDS ORDERED: POTASSIUM CHLORIDE 20 MEQ TABLET PO ONE (07:57)
[2018-08-12] MEDS ORDERED: FERROUS SULFATE 325 MG TABLET PO SCH (09:00)
[2018-08-12] MEDS ORDERED: PANTOPRAZOLE 40 MG TABLET PO SCH (09:00)
[2018-08-12] MEDS ORDERED: SPIRONOLACTONE 100 MG TABLET PO SCH (09:00)
[2018-08-12] MEDS: metroNIDAZOLE 250 MG TABLET PO SCH (09:20)
[2018-08-12] MEDS: FUROSEMIDE 40 MG/4 ML VIAL IV SCH (09:20)
[2018-08-12] MEDS: LACTULOSE 20 GM/30 ML UDCUP PO SCH (09:59)
[2018-08-12] MEDS ORDERED: MAGNESIUM OXIDE 400 MG TABLET PO ONE (10:30)
== END 2018-08-12 11:06 | disposition home health service (06) | DRG 443 ==
LOC: EDUNIT# → N.ED 08:14 → N.EDINP 11:00 → N.2E 12:04
PROVIDERS: ADMIT Hospitalist; ATTEND Hospitalist

== ENCOUNTER 2019-04-13 13:57 | Inpatient (IN) ==
[2019-04-13] MEDS ORDERED: VANCOMYCIN INJ 1,000 MG in SODIUM CHLORIDE 0.9% 250 ML IV STA (14:19)
[2019-04-13] MEDS ORDERED: SODIUM CHLORIDE 0.9% 500 ML IV STA (14:19)
[2019-04-13 15:09] LABS: Basophils # 0.1 10*3/uL (0.0-0.2); Basophils % 0.9 % (0.0-0.8); Eosinophils # 0.1 10*3/uL (0.0-0.87); Eosinophils % 1.6 % (0.00-10.9); Hematocrit 33.6 VOL% (35.7-47.0); Hemoglobin 10.9 GM/DL (12.0-16.0); Immature Granulocytes Absolute 0.07 #; Lymphocytes # 0.6 10*3/uL (1.4-4.0); Lymphocytes % 8.8 % (21.3-54.2); Mean Corpuscular HGB Conc 32.4 GM/DL (32-36); Mean Corpuscular Volume 95.5 FL (87-102); Mean Platelet Volume 12.4 FL (9.6-12.0); Monocytes % 6.1 % (1.7-12.7); Neutrophils % 81.6 % (38.7-73.9); Platelet Count 50 T/CUMM (130-400); Red Blood Count 3.52 MC/CUMM (3.8-5.5); Red Cell Distribution Width 15.2 % (9.3-17.3)
[2019-04-13 15:34] LABS: Albumin 2.7 G/DL (3.4-5.0); Bilirubin,Total 2.4 MG/DL (0.2-1.0); Calcium 7.6 MG/DL (8.5-10.1); Osmolality,Calculated 275.4 MOS/KG (273-304); Total Protein 6.2 G/DL (6.4-8.3)
[2019-04-13] MEDS ORDERED: ONDANSETRON 4 MG/2 ML VIAL IV PRN (17:21)
[2019-04-13] MEDS ORDERED: PROMETHAZINE 25 MG TABLET PO PRN (17:21)
[2019-04-13] MEDS ORDERED: SERTRALINE 50 MG TABLET PO PRN (17:37)
[2019-04-13] MEDS ORDERED: VANCOMYCIN INJ 1,250 MG in SODIUM CHLORIDE 0.9% 250 ML IV ONE (20:00)
[2019-04-13] MEDS: FERROUS SULFATE 325 MG TABLET PO SCH (21:44)
[2019-04-14] MEDS: FAMOTIDINE 20 MG/2 ML VIAL IV SCH ×3 (00:05→23:43)
[2019-04-14] MEDS: SODIUM CHLOR 0.45% KCL 20 MEQ 20 MEQ/1,000 ML BAG IV SCH ×2 (00:13→18:46)
[2019-04-14] MEDS: PIPERACILLIN/TAZOBACTAM 3,375 MG in SODIUM CHLORIDE 0.9% 100 ML IV SCH ×4 (00:19→23:41)
[2019-04-14] MEDS: LACTULOSE 20 GM/30 ML UDCUP PO SCH ×2 (00:37→06:02)
[2019-04-14 05:14] LABS: Basophils % 0.8 % (0.0-0.8); Eosinophils # 0.2 10*3/uL (0.0-0.87); Eosinophils % 3.9 % (0.00-10.9); Hematocrit 35.3 VOL% (35.7-47.0); Hemoglobin 11.7 GM/DL (12.0-16.0); Immature Granulocytes % 1.6 %; Immature Granulocytes Absolute 0.08 #; Lymphocytes # 0.5 10*3/uL (1.4-4.0); Lymphocytes % 9.8 % (21.3-54.2); Mean Corpuscular HGB Conc 33.1 GM/DL (32-36); Mean Corpuscular Volume 94.9 FL (87-102); Monocytes % 6.1 % (1.7-12.7); Neutrophils % 77.8 % (38.7-73.9); Platelet Count 49 T/CUMM (130-400); Red Blood Count 3.72 MC/CUMM (3.8-5.5); White Blood Count 5.1 T/CUMM (4-12)
[2019-04-14 05:43] LABS: Eosinophils 2 % (0-10); Lymphocytes 10 % (20-55); Myelocytes 1 %; Segmented Neutrophils 83 % (50-85); Total Cells Counted 100
[2019-04-14 05:44] LABS: Anisocytosis 1+; Platelet Estimate Adequate
[2019-04-14 05:48] LABS: Albumin 2.3 G/DL (3.4-5.0); Bilirubin,Total 2.1 MG/DL (0.2-1.0); Calcium 7.4 MG/DL (8.5-10.1); Osmolality,Calculated 275.4 MOS/KG (273-304); Risk Ratio 2.74; Thyroid Stimulating Hormone 17.6 uIU/ml (0.358-3.74); Total Protein 5.7 G/DL (6.4-8.3); VLDL CHOLESTEROL 15.8 MG/DL
[2019-04-14] MEDS: LEVOTHYROXINE 88 MCG TABLET PO SCH (06:11)
[2019-04-14] MEDS ORDERED: POTASSIUM CHLORIDE RIDER 10 MEQ in PREMIX 1 EACH IV PRN (07:54)
[2019-04-14] MEDS ORDERED: VANCOMYCIN INJ 1,000 MG in SODIUM CHLORIDE 0.9% 250 ML IV SCH (08:00)
[2019-04-14] MEDS ORDERED: LACTULOSE 20 GM/30 ML UDCUP PO PRN (08:30)
[2019-04-14] MEDS: FERROUS SULFATE 325 MG TABLET PO SCH ×2 (09:15→20:44)
[2019-04-14] MEDS: CHOLECALCIFEROL 1,000 UNIT TABLET PO SCH (09:15)
[2019-04-14] MEDS: CALCIUM (CARBONATE) 600 MG TABLET PO SCH (09:15)
[2019-04-14] MEDS: POTASSIUM CHLORIDE RIDER 10 MEQ in PREMIX 1 EACH IV PRN ×5 (09:16→17:25)
[2019-04-14] MEDS ORDERED: MAGNESIUM SULF RIDER 4 GM in PREMIX 1 EACH IV ONE (09:30)
[2019-04-14] MEDS: SPIRONOLACTONE 100 MG TABLET PO SCH (09:32)
[2019-04-14] MEDS: FUROSEMIDE 40 MG TABLET PO SCH (09:32)
[2019-04-14] MEDS: MORPHINE 4 MG/1 ML VIAL IV PRN ×3 (09:33→23:53)
[2019-04-14 09:50] LABS: INR 1.2; PT Patient Result 12.8 SECS
[2019-04-14] MEDS ORDERED: LACTATED RINGERS 1,000 ML IV SCH (11:30)
[2019-04-14] MEDS ORDERED: LIDOCAINE 1%/EPI INJ 20 ML VIAL ONE (11:36)
[2019-04-14] MEDS ORDERED: BUPIVACAINE MPF 0.25% /EPI 30 ML VIAL ONE (11:36)
[2019-04-14] MEDS ORDERED: PROPOFOL 200 MG/20 ML VIAL IV ONE (12:23)
[2019-04-14] MEDS ORDERED: fentaNYL 100 MCG/2 ML VIAL ONE (12:24)
[2019-04-14] MEDS ORDERED: MIDAZOLAM 2 MG/2 ML VIAL ONE (12:24)
[2019-04-14] MEDS: VANCOMYCIN INJ 1,000 MG in SODIUM CHLORIDE 0.9% 250 ML IV SCH (20:50)
[2019-04-15 04:00] LABS: Basophils % 0.8 % (0.0-0.8); Eosinophils # 0.2 10*3/uL (0.0-0.87); Hematocrit 28.9 VOL% (35.7-47.0); Immature Granulocytes % 1.1 %; Immature Granulocytes Absolute 0.04 #; Lymphocytes # 0.5 10*3/uL (1.4-4.0); Lymphocytes % 13.1 % (21.3-54.2); Mean Corpuscular HGB Conc 31.1 GM/DL (32-36); Mean Platelet Volume 12.6 FL (9.6-12.0); Monocytes % 8.9 % (1.7-12.7); Neutrophils % 71.1 % (38.7-73.9); Platelet Count 51 T/CUMM (130-400); Red Blood Count 2.98 MC/CUMM (3.8-5.5); Red Cell Distribution Width 15.1 % (9.3-17.3); White Blood Count 3.6 T/CUMM (4-12)
[2019-04-15 04:19] LABS: Bilirubin,Total 1.6 MG/DL (0.2-1.0); Osmolality,Calculated 276.4 MOS/KG (273-304); Total Protein 4.8 G/DL (6.4-8.3)
[2019-04-15 04:26] LABS: Eosinophils 4 % (0-10); Lymphocytes 8 % (20-55); Metamyelocytes 1 %; Segmented Neutrophils 83 % (50-85); Total Cells Counted 100
[2019-04-15 04:27] LABS: Anisocytosis Slight; Microcytosis 1+
[2019-04-15 04:28] LABS: Ovalocytes Few; Platelet Estimate Decreased
[2019-04-15] MEDS: POTASSIUM CHLORIDE RIDER 10 MEQ in PREMIX 1 EACH IV PRN (05:09)
[2019-04-15] MEDS: LEVOTHYROXINE 88 MCG TABLET PO SCH (06:16)
[2019-04-15] MEDS: VANCOMYCIN INJ 1,000 MG in SODIUM CHLORIDE 0.9% 250 ML IV SCH (08:10)
[2019-04-15] MEDS: PIPERACILLIN/TAZOBACTAM 3,375 MG in SODIUM CHLORIDE 0.9% 100 ML IV SCH ×3 (08:10→23:25)
[2019-04-15] MEDS: SODIUM CHLOR 0.45% KCL 20 MEQ 20 MEQ/1,000 ML BAG IV SCH ×2 (08:13→23:31)
[2019-04-15] MEDS: SPIRONOLACTONE 100 MG TABLET PO SCH (08:44)
[2019-04-15] MEDS: CALCIUM (CARBONATE) 600 MG TABLET PO SCH (08:45)
[2019-04-15] MEDS: CHOLECALCIFEROL 1,000 UNIT TABLET PO SCH (08:45)
[2019-04-15] MEDS: FERROUS SULFATE 325 MG TABLET PO SCH ×2 (08:45→21:03)
[2019-04-15] MEDS: FUROSEMIDE 40 MG TABLET PO SCH (08:45)
[2019-04-15] MEDS: FAMOTIDINE 20 MG/2 ML VIAL IV SCH ×2 (12:57→23:50)
[2019-04-15] MEDS: VANCOMYCIN INJ 1,250 MG in SODIUM CHLORIDE 0.9% 250 ML IV SCH (21:03)
[2019-04-16 04:43] LABS: Basophils % 0.7 % (0.0-0.8); Eosinophils # 0.2 10*3/uL (0.0-0.87); Eosinophils % 7.4 % (0.00-10.9); Hematocrit 27.5 VOL% (35.7-47.0); Hemoglobin 9.1 GM/DL (12.0-16.0); Immature Granulocytes % 0.7 %; Immature Granulocytes Absolute 0.02 #; Lymphocytes # 0.6 10*3/uL (1.4-4.0); Lymphocytes % 21.2 % (21.3-54.2); Mean Corpuscular HGB Conc 33.1 GM/DL (32-36); Mean Corpuscular Volume 94.5 FL (87-102); Mean Platelet Volume 12.8 FL (9.6-12.0); Monocytes % 8.5 % (1.7-12.7); Neutrophils % 61.5 % (38.7-73.9); Red Blood Count 2.91 MC/CUMM (3.8-5.5); Red Cell Distribution Width 14.8 % (9.3-17.3); White Blood Count 2.8 T/CUMM (4-12)
[2019-04-16] MEDS: SODIUM CHLOR 0.45% KCL 20 MEQ 20 MEQ/1,000 ML BAG IV SCH (04:44)
[2019-04-16] MEDS: LEVOTHYROXINE 88 MCG TABLET PO SCH (04:50)
[2019-04-16 04:52] LABS: Platelet Count 50 T/CUMM (130-400)
[2019-04-16 05:08] LABS: Bilirubin,Total 1.2 MG/DL (0.2-1.0); Calcium 7.4 MG/DL (8.5-10.1); Osmolality,Calculated 283.8 MOS/KG (273-304); Total Protein 4.7 G/DL (6.4-8.3)
[2019-04-16] MEDS: POTASSIUM CHLORIDE RIDER 10 MEQ in PREMIX 1 EACH IV PRN ×2 (05:24→06:25)
[2019-04-16] MEDS: VANCOMYCIN INJ 1,250 MG in SODIUM CHLORIDE 0.9% 250 ML IV SCH (08:57)
[2019-04-16] MEDS: CALCIUM (CARBONATE) 600 MG TABLET PO SCH (09:01)
[2019-04-16] MEDS: CHOLECALCIFEROL 1,000 UNIT TABLET PO SCH (09:01)
[2019-04-16] MEDS: SPIRONOLACTONE 100 MG TABLET PO SCH (09:02)
[2019-04-16] MEDS: FUROSEMIDE 40 MG TABLET PO SCH (09:02)
[2019-04-16] MEDS: FERROUS SULFATE 325 MG TABLET PO SCH (09:02)
[2019-04-16] MEDS: PIPERACILLIN/TAZOBACTAM 3,375 MG in SODIUM CHLORIDE 0.9% 100 ML IV SCH (10:23)
[2019-04-16 11:38] VITALS: BP 107/74
[2019-04-16] MEDS: FAMOTIDINE 20 MG/2 ML VIAL IV SCH (12:23)
[2019-04-16] MEDS ORDERED: CLINDAMYCIN 300 MG CAPSULE PO SCH (22:00)
== END 2019-04-16 15:15 | DRG 252 ==
LOC: EDUNIT# → N.ED 13:57 → N.EDINP 17:21 → SUATTDRO 17:21 → N.3E 18:15
PROVIDERS: ADMIT Internal Medicine; ATTEND Emergency Medicine

== ENCOUNTER 2020-05-03 12:48 | Inpatient (IN) ==
[2020-05-03] MEDS ORDERED: SODIUM CHLORIDE 0.9% 1,000 ML IV STA (12:55)
[2020-05-03] MEDS ORDERED: LACTULOSE 20 GM/30 ML UDCUP PO STA (13:51)
[2020-05-03] MEDS ORDERED: LORazepam 2 MG/1 ML VIAL ONE (13:52)
[2020-05-03] MEDS ORDERED: LORazepam 2 MG/1 ML VIAL IV STA (13:55)
[2020-05-03 13:56] LABS: Basophils % 0.3 % (0.0-0.8); Hematocrit 33.9 VOL% (35.7-47.0); Hemoglobin 10.5 GM/DL (12.0-16.0); Immature Granulocytes % 0.3 %; Immature Granulocytes Absolute 0.01 #; Lymphocytes # 0.3 10*3/uL (1.4-4.0); Mean Corpuscular Volume 92.4 FL (87-102); Mean Platelet Volume 12.7 FL (9.6-12.0); Monocytes % 5.1 % (1.7-12.7); Neutrophils % 83.3 % (38.7-73.9); Platelet Count 56 T/CUMM (130-400); Red Blood Count 3.67 MC/CUMM (3.8-5.5); Red Cell Distribution Width 15.8 % (9.3-17.3); White Blood Count 2.9 T/CUMM (4-12)
[2020-05-03 14:16] LABS: Albumin 2.9 G/DL (3.4-5.0); Bilirubin,Total 1.4 MG/DL (0.2-1.0); Calcium 8.3 MG/DL (8.5-10.1); Total Protein 6.7 G/DL (6.4-8.3)
[2020-05-03 14:17] LABS: Elliptocytes Few
[2020-05-03 14:18] LABS: Platelet Estimate Decreased
[2020-05-03 14:21] LABS: INR 1.2; PT Patient Result 13.2 SECS (9.8-11.9)
[2020-05-03 14:26] LABS: Partial Thromboplastin Time 142.6 SECS (23.9-33.8)
[2020-05-03 14:39] LABS: Apearance,Urine CLEAR (Clear); Bilirubin,Urine Negative (Negative); Blood, Urine Negative (Negative); Glucose,Urine (UA) Negative (Negative); Ketones,Urine Negative (Negative); Mucus,Urine Occasional /LPF (Occasional); Nitrite,Urine Negative (Negative); Protein,Urine 30 MG/DL; RBC,Urine <1 /HPF (0-4); Squamous Epithelial Cell,Urine Occasional /HPF (0-10); Urine Color Amber (Yellow); Urine Specific Gravity 1.026 (1.001-1.035); WBC,Urine 1 /HPF (0-6)
[2020-05-03 15:34] LABS: Thyroid Stimulating Hormone 5.91 uIU/ml (0.358-3.74)
[2020-05-03 15:35] LABS: Folate 13.8 NG/ML (5.4-24.0)
[2020-05-03] MEDS: ONDANSETRON 4 MG/2 ML VIAL IV PRN (18:56)
[2020-05-03] MEDS: SODIUM CHLORIDE 0.9% 1,000 ML IV SCH (19:00)
[2020-05-03] MEDS ORDERED: ENOXAPARIN 40 MG/0.4 ML SYRINGE SUBCUT SCH (21:00)
[2020-05-03] MEDS ORDERED: LORazepam 2 MG/1 ML VIAL IV PRN (21:56)
[2020-05-03] MEDS: LACTULOSE 20 GM/30 ML UDCUP PO SCH (22:13)
[2020-05-04] MEDS: LACTULOSE 20 GM/30 ML UDCUP PO SCH ×6 (01:12→21:04)
[2020-05-04 06:53] LABS: Eosinophils # 0.1 10*3/uL (0.0-0.87); Eosinophils % 7.1 % (0.00-10.9); Hematocrit 32.1 VOL% (35.7-47.0); Hemoglobin 9.7 GM/DL (12.0-16.0); Immature Granulocytes % 0.5 %; Immature Granulocytes Absolute 0.01 #; Lymphocytes # 0.6 10*3/uL (1.4-4.0); Mean Corpuscular HGB Conc 30.2 GM/DL (32-36); Mean Corpuscular Volume 94.4 FL (87-102); Monocytes % 7.1 % (1.7-12.7); Neutrophils % 53.3 % (38.7-73.9); Platelet Count 47 T/CUMM (130-400); Red Cell Distribution Width 15.9 % (9.3-17.3)
[2020-05-04] MEDS: LEVOTHYROXINE 88 MCG TABLET PO SCH (07:18)
[2020-05-04 07:24] LABS: Albumin 2.2 G/DL (3.4-5.0); Bilirubin,Total 1.7 MG/DL (0.2-1.0); Calcium 7.8 MG/DL (8.5-10.1); Osmolality,Calculated 295.1 MOS/KG (273-304); Total Protein 5.4 G/DL (6.4-8.3)
[2020-05-04 07:26] LABS: Band Neutrophils 3 % (0-10); Eosinophils 3 % (0-10); Lymphocytes 33 % (20-55); Platelet Estimate Decreased; Segmented Neutrophils 56 % (50-85); Total Cells Counted 100
[2020-05-04 07:27] LABS: Anisocytosis 1+; Burr Cells 1+; Poikilocytosis 1+
[2020-05-04 07:28] LABS: Macrocytosis Slight
[2020-05-04] MEDS: SODIUM CHLORIDE 0.9% 1,000 ML IV SCH (07:56)
[2020-05-04] MEDS: PANTOPRAZOLE 40 MG TABLET PO SCH (10:17)
[2020-05-04] MEDS: CALCIUM (CARBONATE) 600 MG TABLET PO SCH (10:18)
[2020-05-04] MEDS: CHOLECALCIFEROL 1,000 UNIT TABLET PO SCH (10:18)
[2020-05-04] MEDS: ESCITALOPRAM 10 MG TABLET PO SCH (10:18)
[2020-05-04] MEDS: ONDANSETRON 4 MG/2 ML VIAL IV PRN (12:47)
[2020-05-05] MEDS: LACTULOSE 20 GM/30 ML UDCUP PO SCH ×4 (00:06→20:12)
[2020-05-05] MEDS: LEVOTHYROXINE 88 MCG TABLET PO SCH (05:38)
[2020-05-05] MEDS: CALCIUM (CARBONATE) 600 MG TABLET PO SCH (08:23)
[2020-05-05] MEDS: CHOLECALCIFEROL 1,000 UNIT TABLET PO SCH (08:23)
[2020-05-05] MEDS: ESCITALOPRAM 10 MG TABLET PO SCH (08:23)
[2020-05-05] MEDS: PANTOPRAZOLE 40 MG TABLET PO SCH (08:23)
[2020-05-05] MEDS: DEXTROSE 5% 1,000 ML IV SCH ×2 (10:42→20:12)
[2020-05-06 05:12] LABS: Calcium 7.6 MG/DL (8.5-10.1); Osmolality,Calculated 276.4 MOS/KG (273-304)
[2020-05-06] MEDS: DEXTROSE 5% 1,000 ML IV SCH (05:55)
[2020-05-06] MEDS: LEVOTHYROXINE 88 MCG TABLET PO SCH (05:55)
[2020-05-06] MEDS: PANTOPRAZOLE 40 MG TABLET PO SCH (09:26)
[2020-05-06] MEDS: ESCITALOPRAM 10 MG TABLET PO SCH (09:26)
[2020-05-06] MEDS: CALCIUM (CARBONATE) 600 MG TABLET PO SCH (09:26)
[2020-05-06] MEDS: LACTULOSE 20 GM/30 ML UDCUP PO SCH ×3 (09:27→21:31)
[2020-05-06] MEDS: CHOLECALCIFEROL 1,000 UNIT TABLET PO SCH (09:27)
[2020-05-06] MEDS ORDERED: MAGNESIUM SULF RIDER 2 GM in PREMIX 1 EACH IV ONE (11:26)
[2020-05-07] MEDS: LEVOTHYROXINE 88 MCG TABLET PO SCH (05:54)
[2020-05-07] MEDS: CHOLECALCIFEROL 1,000 UNIT TABLET PO SCH (08:14)
[2020-05-07] MEDS: LACTULOSE 20 GM/30 ML UDCUP PO SCH ×4 (08:14→21:52)
[2020-05-07] MEDS: ESCITALOPRAM 10 MG TABLET PO SCH (08:14)
[2020-05-07] MEDS: PANTOPRAZOLE 40 MG TABLET PO SCH (08:14)
[2020-05-07] MEDS: CALCIUM (CARBONATE) 600 MG TABLET PO SCH (08:14)
[2020-05-07] MEDS: ONDANSETRON 4 MG/2 ML VIAL IV PRN (13:05)
[2020-05-08] MEDS: ONDANSETRON 4 MG/2 ML VIAL IV PRN ×2 (00:07→08:39)
[2020-05-08] MEDS: LEVOTHYROXINE 88 MCG TABLET PO SCH (06:36)
[2020-05-08 07:57] VITALS: BP 111/52
[2020-05-08] MEDS: LACTULOSE 20 GM/30 ML UDCUP PO SCH (08:33)
[2020-05-08] MEDS: CHOLECALCIFEROL 1,000 UNIT TABLET PO SCH (08:33)
[2020-05-08] MEDS: PANTOPRAZOLE 40 MG TABLET PO SCH (08:33)
[2020-05-08] MEDS: CALCIUM (CARBONATE) 600 MG TABLET PO SCH (08:33)
[2020-05-08 08:34] LABS: Basophils % 0.9 % (0.0-0.8); Eosinophils # 0.2 10*3/uL (0.0-0.87); Eosinophils % 9.1 % (0.00-10.9); Hematocrit 29.2 VOL% (35.7-47.0); Hemoglobin 8.9 GM/DL (12.0-16.0); Immature Granulocytes % 0.4 %; Immature Granulocytes Absolute 0.01 #; Lymphocytes # 0.6 10*3/uL (1.4-4.0); Lymphocytes % 25.2 % (21.3-54.2); Mean Corpuscular HGB Conc 30.5 GM/DL (32-36); Mean Corpuscular Volume 94.2 FL (87-102); Mean Platelet Volume 13.1 FL (9.6-12.0); Neutrophils % 57.4 % (38.7-73.9); Platelet Count 44 T/CUMM (130-400); Red Cell Distribution Width 15.8 % (9.3-17.3); White Blood Count 2.3 T/CUMM (4-12)
[2020-05-08] MEDS: ESCITALOPRAM 10 MG TABLET PO SCH (08:34)
[2020-05-08 08:53] LABS: Ovalocytes Few
[2020-05-08 08:54] LABS: Anisocytosis 1+; Platelet Estimate Decreased
[2020-05-08 08:55] LABS: Hypochromasia 1+; Polychromasia Slight
[2020-05-08 09:00] LABS: Calcium 7.6 MG/DL (8.5-10.1); Osmolality,Calculated 281.1 MOS/KG (273-304)
[2020-05-08] MEDS ORDERED: MAGNESIUM SULF RIDER 2 GM in PREMIX 1 EACH IV ONE (11:03)
== END 2020-05-08 12:23 | disposition home health service (06) | DRG 442 ==
LOC: EDUNIT# → EDBD → N.ED 12:48 → N.EDINP 14:58 → SUATTDRO 14:58 → N.TELES 17:36
PROVIDERS: ADMIT Internal Medicine; ATTEND Internal Medicine

== ENCOUNTER 2020-08-22 15:46 | Inpatient (IN) ==
[2020-08-22 17:25] LABS: Eosinophils # 0.2 10*3/uL (0.0-0.87); Eosinophils % 6.2 % (0.00-10.9); Hematocrit 30.3 VOL% (35.7-47.0); Hemoglobin 9.9 GM/DL (12.0-16.0); Immature Granulocytes % 0.3 %; Immature Granulocytes Absolute 0.01 #; Lymphocytes # 0.7 10*3/uL (1.4-4.0); Lymphocytes % 23.1 % (21.3-54.2); Mean Corpuscular HGB Conc 32.7 GM/DL (32-36); Mean Corpuscular Volume 91.3 FL (87-102); Mean Platelet Volume 12.1 FL (9.6-12.0); Monocytes % 8.4 % (1.7-12.7); Platelet Count 71 T/CUMM (130-400); Red Blood Count 3.32 MC/CUMM (3.8-5.5); Red Cell Distribution Width 16.6 % (9.3-17.3); White Blood Count 3.1 T/CUMM (4-12)
[2020-08-22 17:57] LABS: INR 1.2; PT Patient Result 13.2 SECS (9.8-11.9)
[2020-08-22 18:01] LABS: Partial Thromboplastin Time > 211.8 SECS (23.9-33.8)
[2020-08-22 18:06] LABS: Albumin 2.5 G/DL (3.4-5.0); Bilirubin,Total 1.1 MG/DL (0.2-1.0); Calcium 7.9 MG/DL (8.5-10.1)
[2020-08-22] MEDS ORDERED: GLUCAGON 1 MG VIAL IM PRN (18:27)
[2020-08-22] MEDS ORDERED: DEXTROSE 50% 25 GM/50 ML VIAL IV PRN (18:27)
[2020-08-22] MEDS ORDERED: VANCOMYCIN 1,000 MG VIAL ONE (19:07)
[2020-08-22] MEDS ORDERED: VANCOMYCIN INJ 750 MG in SODIUM CHLORIDE 0.9% 250 ML IV STA (19:10)
[2020-08-22] MEDS ORDERED: ENOXAPARIN 40 MG/0.4 ML SYRINGE SUBCUT SCH (21:00)
[2020-08-22] MEDS: traZODone 50 MG TABLET PO SCH (21:44)
[2020-08-22] MEDS: MUPIROCIN 2% OINT 22 GM TUBE TOP SCH (22:54)
[2020-08-22] MEDS ORDERED: ZALEPLON 5 MG CAPSULE PO PRN (23:35)
[2020-08-23] MEDS: LEVOTHYROXINE 75 MCG TABLET PO SCH (06:20)
[2020-08-23 07:17] LABS: Basophils % 0.4 % (0.0-0.8); Eosinophils # 0.2 10*3/uL (0.0-0.87); Eosinophils % 9.5 % (0.00-10.9); Hematocrit 24.7 VOL% (35.7-47.0); Lymphocytes # 0.5 10*3/uL (1.4-4.0); Mean Corpuscular HGB Conc 32.4 GM/DL (32-36); Mean Corpuscular Volume 92.2 FL (87-102); Mean Platelet Volume 12.4 FL (9.6-12.0); Monocytes % 9.9 % (1.7-12.7); Neutrophils % 59.2 % (38.7-73.9); Platelet Count 57 T/CUMM (130-400); Red Blood Count 2.68 MC/CUMM (3.8-5.5); Red Cell Distribution Width 16.8 % (9.3-17.3); White Blood Count 2.5 T/CUMM (4-12)
[2020-08-23 07:36] LABS: Hypochromasia Slight; Microcytosis 1+; Ovalocytes Few; Platelet Estimate Decreased
[2020-08-23 07:44] LABS: Albumin 1.9 G/DL (3.4-5.0); Bilirubin,Total 0.8 MG/DL (0.2-1.0); Calcium 7.4 MG/DL (8.5-10.1); Total Protein 4.7 G/DL (6.4-8.3)
[2020-08-23] MEDS: CHOLECALCIFEROL 1,000 UNIT TABLET PO SCH (09:19)
[2020-08-23] MEDS: MUPIROCIN 2% OINT 22 GM TUBE TOP SCH ×3 (09:19→20:37)
[2020-08-23] MEDS: FUROSEMIDE 40 MG TABLET PO SCH (09:19)
[2020-08-23] MEDS: CALCIUM (CARBONATE) 600 MG TABLET PO SCH (09:19)
[2020-08-23] MEDS: PANTOPRAZOLE 40 MG TABLET PO SCH (09:19)
[2020-08-23] MEDS: ESCITALOPRAM 10 MG TABLET PO SCH (09:19)
[2020-08-23] MEDS: FERROUS SULFATE 325 MG TABLET PO SCH (09:19)
[2020-08-23] MEDS: SPIRONOLACTONE 25 MG TABLET PO SCH (09:19)
[2020-08-23] MEDS ORDERED: HYDROmorphone 2 MG/1 ML VIAL IV ONE (09:50)
[2020-08-23] MEDS: VANCOMYCIN INJ 750 MG in SODIUM CHLORIDE 0.9% 250 ML IV SCH ×2 (11:42→23:52)
[2020-08-23] MEDS: traZODone 50 MG TABLET PO SCH (20:36)
[2020-08-23] MEDS: LACTULOSE 20 GM/30 ML UDCUP PO SCH (20:37)
[2020-08-23] MEDS: ACETAMINOPHEN 325 MG TABLET PO PRN (20:59)
[2020-08-24] MEDS: ACETAMINOPHEN 325 MG TABLET PO PRN ×2 (02:08→11:08)
[2020-08-24 05:48] LABS: Basophils % 0.6 % (0.0-0.8); Eosinophils # 0.3 10*3/uL (0.0-0.87); Eosinophils % 7.4 % (0.00-10.9); Hematocrit 25.6 VOL% (35.7-47.0); Hemoglobin 8.3 GM/DL (12.0-16.0); Immature Granulocytes % 0.3 %; Immature Granulocytes Absolute 0.01 #; Lymphocytes # 0.6 10*3/uL (1.4-4.0); Lymphocytes % 17.3 % (21.3-54.2); Mean Corpuscular HGB Conc 32.4 GM/DL (32-36); Mean Corpuscular Volume 93.4 FL (87-102); Mean Platelet Volume 12.5 FL (9.6-12.0); Monocytes % 8.9 % (1.7-12.7); Neutrophils % 65.5 % (38.7-73.9); Red Blood Count 2.74 MC/CUMM (3.8-5.5); Red Cell Distribution Width 16.4 % (9.3-17.3); White Blood Count 3.4 T/CUMM (4-12)
[2020-08-24 05:50] LABS: Platelet Count 51 T/CUMM (130-400)
[2020-08-24] MEDS: LEVOTHYROXINE 75 MCG TABLET PO SCH (05:51)
[2020-08-24 06:03] LABS: Calcium 7.4 MG/DL (8.5-10.1); Osmolality,Calculated 277.4 MOS/KG (273-304)
[2020-08-24 06:13] LABS: Hypochromasia 1+; Microcytosis Slight; Ovalocytes Slight; Platelet Estimate Decreased
[2020-08-24] MEDS ORDERED: MAGNESIUM SULF RIDER 4 GM in PREMIX 1 EACH IV PRN (07:09)
[2020-08-24] MEDS ORDERED: MAGNESIUM SULF RIDER 2 GM in PREMIX 1 EACH IV PRN (07:09)
[2020-08-24] MEDS: ESCITALOPRAM 10 MG TABLET PO SCH (11:02)
[2020-08-24] MEDS: SPIRONOLACTONE 25 MG TABLET PO SCH (11:02)
[2020-08-24] MEDS: FERROUS SULFATE 325 MG TABLET PO SCH (11:02)
[2020-08-24] MEDS: CALCIUM (CARBONATE) 600 MG TABLET PO SCH (11:02)
[2020-08-24] MEDS: CHOLECALCIFEROL 1,000 UNIT TABLET PO SCH (11:02)
[2020-08-24] MEDS: FUROSEMIDE 40 MG TABLET PO SCH (11:03)
[2020-08-24] MEDS: LACTULOSE 20 GM/30 ML UDCUP PO SCH ×2 (11:03→21:44)
[2020-08-24] MEDS: PANTOPRAZOLE 40 MG TABLET PO SCH (11:03)
[2020-08-24] MEDS: FUROSEMIDE 80 MG TABLET PO SCH (11:08)
[2020-08-24] MEDS: VANCOMYCIN INJ 750 MG in SODIUM CHLORIDE 0.9% 250 ML IV SCH (13:01)
[2020-08-24] MEDS: cefTRIAXone 1,000 MG in SYRINGE 1 EACH IV SCH (16:26)
[2020-08-24] MEDS: traZODone 50 MG TABLET PO SCH (21:41)
[2020-08-24] MEDS: MUPIROCIN 2% OINT 22 GM TUBE TOP SCH ×2 (21:44→22:14)
[2020-08-25 04:22] LABS: Basophils % 0.6 % (0.0-0.8); Eosinophils # 0.2 10*3/uL (0.0-0.87); Eosinophils % 6.7 % (0.00-10.9); Hematocrit 24.8 VOL% (35.7-47.0); Immature Granulocytes % 0.3 %; Immature Granulocytes Absolute 0.01 #; Lymphocytes # 0.6 10*3/uL (1.4-4.0); Mean Corpuscular HGB Conc 32.3 GM/DL (32-36); Mean Corpuscular Volume 92.5 FL (87-102); Mean Platelet Volume 11.8 FL (9.6-12.0); Monocytes % 7.9 % (1.7-12.7); Neutrophils % 68.5 % (38.7-73.9); Platelet Count 58 T/CUMM (130-400); Red Blood Count 2.68 MC/CUMM (3.8-5.5); Red Cell Distribution Width 16.5 % (9.3-17.3); White Blood Count 3.6 T/CUMM (4-12)
[2020-08-25 04:42] LABS: Hypochromasia 1+; Microcytosis 1+; Ovalocytes Slight; Platelet Estimate Decreased
[2020-08-25 04:54] LABS: Calcium 7.5 MG/DL (8.5-10.1); Osmolality,Calculated 281.1 MOS/KG (273-304)
[2020-08-25] MEDS: LEVOTHYROXINE 75 MCG TABLET PO SCH (06:19)
[2020-08-25] MEDS ORDERED: MAGNESIUM SULF RIDER 4 GM in PREMIX 1 EACH IV ONE (08:00)
[2020-08-25] MEDS: SPIRONOLACTONE 25 MG TABLET PO SCH (08:38)
[2020-08-25] MEDS: CALCIUM (CARBONATE) 600 MG TABLET PO SCH (08:38)
[2020-08-25] MEDS: PANTOPRAZOLE 40 MG TABLET PO SCH (08:38)
[2020-08-25] MEDS: ESCITALOPRAM 10 MG TABLET PO SCH (08:38)
[2020-08-25] MEDS: FERROUS SULFATE 325 MG TABLET PO SCH (08:38)
[2020-08-25] MEDS: CHOLECALCIFEROL 1,000 UNIT TABLET PO SCH (08:38)
[2020-08-25] MEDS: FUROSEMIDE 40 MG TABLET PO SCH (08:38)
[2020-08-25] MEDS: MUPIROCIN 2% OINT 22 GM TUBE TOP SCH ×3 (08:39→21:50)
[2020-08-25] MEDS: LACTULOSE 20 GM/30 ML UDCUP PO SCH ×2 (09:20→20:36)
[2020-08-25] MEDS: cefTRIAXone 1,000 MG in SYRINGE 1 EACH IV SCH (13:45)
[2020-08-25] MEDS ORDERED: SODIUM CHLORIDE 0.9% 1,000 ML IV PRN (16:15)
[2020-08-25] MEDS: traZODone 50 MG TABLET PO SCH (20:33)
[2020-08-26 06:43] LABS: Basophils % 0.6 % (0.0-0.8); Eosinophils # 0.2 10*3/uL (0.0-0.87); Eosinophils % 6.7 % (0.00-10.9); Hematocrit 28.5 VOL% (35.7-47.0); Hemoglobin 9.4 GM/DL (12.0-16.0); Immature Granulocytes % 0.3 %; Immature Granulocytes Absolute 0.01 #; Lymphocytes # 0.6 10*3/uL (1.4-4.0); Lymphocytes % 15.6 % (21.3-54.2); Mean Corpuscular Volume 92.2 FL (87-102); Mean Platelet Volume 11.9 FL (9.6-12.0); Monocytes % 6.9 % (1.7-12.7); Neutrophils % 69.9 % (38.7-73.9); Platelet Count 59 T/CUMM (130-400); Red Blood Count 3.09 MC/CUMM (3.8-5.5); Red Cell Distribution Width 16.7 % (9.3-17.3); White Blood Count 3.6 T/CUMM (4-12)
[2020-08-26] MEDS: LEVOTHYROXINE 75 MCG TABLET PO SCH (06:58)
[2020-08-26 07:01] LABS: Calcium 7.7 MG/DL (8.5-10.1); Osmolality,Calculated 273.7 MOS/KG (273-304)
[2020-08-26] MEDS: PANTOPRAZOLE 40 MG TABLET PO SCH (08:44)
[2020-08-26] MEDS: CALCIUM (CARBONATE) 600 MG TABLET PO SCH (08:44)
[2020-08-26] MEDS: ESCITALOPRAM 10 MG TABLET PO SCH (08:44)
[2020-08-26] MEDS: CHOLECALCIFEROL 1,000 UNIT TABLET PO SCH (08:44)
[2020-08-26] MEDS: FERROUS SULFATE 325 MG TABLET PO SCH (08:44)
[2020-08-26] MEDS: FUROSEMIDE 80 MG TABLET PO SCH (08:46)
[2020-08-26] MEDS: MUPIROCIN 2% OINT 22 GM TUBE TOP SCH ×3 (08:47→21:36)
[2020-08-26] MEDS: SPIRONOLACTONE 25 MG TABLET PO SCH (08:55)
[2020-08-26] MEDS: LACTULOSE 20 GM/30 ML UDCUP PO SCH ×2 (08:55→21:36)
[2020-08-26] MEDS: cefTRIAXone 1,000 MG in SYRINGE 1 EACH IV SCH (15:16)
[2020-08-26] MEDS: traZODone 50 MG TABLET PO SCH (21:32)
[2020-08-27] MEDS: CALCIUM (CARBONATE) 600 MG TABLET PO SCH (09:46)
[2020-08-27] MEDS: FUROSEMIDE 40 MG TABLET PO SCH (09:46)
[2020-08-27] MEDS: PANTOPRAZOLE 40 MG TABLET PO SCH (09:46)
[2020-08-27] MEDS: LEVOTHYROXINE 75 MCG TABLET PO SCH (09:46)
[2020-08-27] MEDS: FERROUS SULFATE 325 MG TABLET PO SCH (09:46)
[2020-08-27] MEDS: SPIRONOLACTONE 25 MG TABLET PO SCH (09:46)
[2020-08-27] MEDS: CHOLECALCIFEROL 1,000 UNIT TABLET PO SCH (09:46)
[2020-08-27] MEDS: ESCITALOPRAM 10 MG TABLET PO SCH (09:46)
[2020-08-27] MEDS: MUPIROCIN 2% OINT 22 GM TUBE TOP SCH ×3 (09:49→20:52)
[2020-08-27] MEDS: LACTULOSE 20 GM/30 ML UDCUP PO SCH ×2 (09:49→21:58)
[2020-08-27] MEDS: PIPERACILLIN/TAZOBACTAM 3,375 MG in SODIUM CHLORIDE 0.9% 100 ML IV SCH ×2 (12:45→21:00)
[2020-08-27] MEDS ORDERED: ASPIRIN CHEW 81 MG TABLET PO ONE (16:47)
[2020-08-27] MEDS ORDERED: NITROGLYCERIN SL 0.4 MG TABLET SL ONE (16:48)
[2020-08-27] MEDS: ONDANSETRON 4 MG/2 ML VIAL IV PRN (16:50)
[2020-08-27] MEDS: NITROGLYCERIN SL 0.4 MG TABLET SL PRN ×2 (16:50→17:02)
[2020-08-27] MEDS ORDERED: ASPIRIN 325 MG TABLET ONE (16:56)
[2020-08-27] MEDS: VANCOMYCIN INJ 750 MG in SODIUM CHLORIDE 0.9% 250 ML IV SCH (17:00)
[2020-08-27] MEDS: traZODone 50 MG TABLET PO SCH (20:52)
[2020-08-28] MEDS: VANCOMYCIN INJ 750 MG in SODIUM CHLORIDE 0.9% 250 ML IV SCH ×2 (01:11→15:06)
[2020-08-28] MEDS: NITROGLYCERIN SL 0.4 MG TABLET SL PRN (04:40)
[2020-08-28] MEDS: PIPERACILLIN/TAZOBACTAM 3,375 MG in SODIUM CHLORIDE 0.9% 100 ML IV SCH ×2 (04:58→18:15)
[2020-08-28 06:14] LABS: Basophils % 0.6 % (0.0-0.8); Eosinophils # 0.3 10*3/uL (0.0-0.87); Eosinophils % 7.8 % (0.00-10.9); Hematocrit 28.6 VOL% (35.7-47.0); Hemoglobin 9.3 GM/DL (12.0-16.0); Immature Granulocytes % 0.3 %; Immature Granulocytes Absolute 0.01 #; Lymphocytes # 0.5 10*3/uL (1.4-4.0); Mean Corpuscular HGB Conc 32.5 GM/DL (32-36); Mean Corpuscular Volume 93.5 FL (87-102); Mean Platelet Volume 11.9 FL (9.6-12.0); Monocytes % 6.4 % (1.7-12.7); Neutrophils % 69.9 % (38.7-73.9); Platelet Count 61 T/CUMM (130-400); Red Blood Count 3.06 MC/CUMM (3.8-5.5); White Blood Count 3.6 T/CUMM (4-12)
[2020-08-28 06:32] LABS: Calcium 7.8 MG/DL (8.5-10.1); Osmolality,Calculated 280.3 MOS/KG (273-304)
[2020-08-28 06:48] LABS: Hypochromasia 1+; Microcytosis Slight; Ovalocytes Slight; Platelet Estimate Decreased
[2020-08-28] MEDS: LEVOTHYROXINE 75 MCG TABLET PO SCH (07:24)
[2020-08-28] MEDS: CALCIUM (CARBONATE) 600 MG TABLET PO SCH (10:52)
[2020-08-28] MEDS: CHOLECALCIFEROL 1,000 UNIT TABLET PO SCH (10:53)
[2020-08-28] MEDS: SPIRONOLACTONE 25 MG TABLET PO SCH (10:53)
[2020-08-28] MEDS: PANTOPRAZOLE 40 MG TABLET PO SCH (10:53)
[2020-08-28] MEDS: LACTULOSE 20 GM/30 ML UDCUP PO SCH ×3 (10:53→20:46)
[2020-08-28] MEDS: FERROUS SULFATE 325 MG TABLET PO SCH (10:53)
[2020-08-28] MEDS: FUROSEMIDE 80 MG TABLET PO SCH (10:53)
[2020-08-28] MEDS: ESCITALOPRAM 10 MG TABLET PO SCH (10:53)
[2020-08-28] MEDS: MUPIROCIN 2% OINT 22 GM TUBE TOP SCH ×3 (10:56→20:45)
[2020-08-28] MEDS ORDERED: MAGNESIUM SULF RIDER 2 GM in PREMIX 1 EACH IV ONE (12:30)
[2020-08-28] MEDS: ONDANSETRON 4 MG/2 ML VIAL IV PRN (16:42)
[2020-08-28] MEDS: traZODone 50 MG TABLET PO SCH (20:44)
[2020-08-29] MEDS: VANCOMYCIN INJ 750 MG in SODIUM CHLORIDE 0.9% 250 ML IV SCH (01:14)
[2020-08-29] MEDS: PIPERACILLIN/TAZOBACTAM 3,375 MG in SODIUM CHLORIDE 0.9% 100 ML IV SCH ×2 (02:59→11:24)
[2020-08-29] MEDS: LEVOTHYROXINE 75 MCG TABLET PO SCH (05:30)
[2020-08-29 06:14] LABS: Basophils % 0.9 % (0.0-0.8); Eosinophils # 0.3 10*3/uL (0.0-0.87); Eosinophils % 7.2 % (0.00-10.9); Immature Granulocytes % 0.6 %; Immature Granulocytes Absolute 0.02 #; Lymphocytes # 0.6 10*3/uL (1.4-4.0); Lymphocytes % 16.7 % (21.3-54.2); Mean Corpuscular HGB Conc 32.1 GM/DL (32-36); Mean Corpuscular Volume 93.6 FL (87-102); Mean Platelet Volume 11.8 FL (9.6-12.0); Monocytes % 7.8 % (1.7-12.7); Neutrophils % 66.8 % (38.7-73.9); Platelet Count 65 T/CUMM (130-400); Red Blood Count 2.99 MC/CUMM (3.8-5.5); Red Cell Distribution Width 17.2 % (9.3-17.3); White Blood Count 3.5 T/CUMM (4-12)
[2020-08-29 06:36] LABS: Calcium 7.9 MG/DL (8.5-10.1); Osmolality,Calculated 280.3 MOS/KG (273-304)
[2020-08-29 06:39] LABS: Microcytosis 1+; Ovalocytes Slight; Platelet Estimate Decreased; Spherocytes Slight
[2020-08-29 06:41] LABS: % Iron Saturation 8.1 % (18-50); Ferritin 21.8 ng/ml (8-252)
[2020-08-29 06:46] LABS: Folate 7.9 NG/ML (5.4-24.0)
[2020-08-29] MEDS ORDERED: LACTULOSE 20 GM/30 ML UDCUP PO SCH (09:00)
[2020-08-29] MEDS: PANTOPRAZOLE 40 MG TABLET PO SCH (11:24)
[2020-08-29] MEDS: SPIRONOLACTONE 25 MG TABLET PO SCH (11:25)
[2020-08-29] MEDS: CALCIUM (CARBONATE) 600 MG TABLET PO SCH (11:25)
[2020-08-29] MEDS: MUPIROCIN 2% OINT 22 GM TUBE TOP SCH (11:25)
[2020-08-29] MEDS: FUROSEMIDE 40 MG TABLET PO SCH (11:25)
[2020-08-29] MEDS: CHOLECALCIFEROL 1,000 UNIT TABLET PO SCH (11:25)
[2020-08-29] MEDS: FERROUS SULFATE 325 MG TABLET PO SCH (11:25)
[2020-08-29] MEDS: ESCITALOPRAM 10 MG TABLET PO SCH (11:29)
[2020-08-29 11:42] VITALS: BP 102/48
== END 2020-08-29 16:40 | disposition home health service (06) | DRG 603 ==
LOC: N.ED 15:46 → SUATTDRO 18:27 → N.EDINP 18:27 → N.3E 19:10
PROVIDERS: ADMIT Internal Medicine; ATTEND Internal Medicine

== ENCOUNTER 2020-09-04 17:31 | Inpatient (IN) ==
[2020-09-04] MEDS ORDERED: cefTRIAXone 1,000 MG in SODIUM CHLORIDE 0.9% 100 ML IV STA (17:50)
[2020-09-04 18:15] LABS: Basophils % 0.9 % (0.0-0.8); Eosinophils # 0.2 10*3/uL (0.0-0.87); Eosinophils % 5.7 % (0.00-10.9); Hematocrit 29.9 VOL% (35.7-47.0); Hemoglobin 9.8 GM/DL (12.0-16.0); Immature Granulocytes % 0.3 %; Immature Granulocytes Absolute 0.01 #; Lymphocytes # 0.5 10*3/uL (1.4-4.0); Lymphocytes % 14.5 % (21.3-54.2); Mean Corpuscular HGB Conc 32.8 GM/DL (32-36); Mean Corpuscular Volume 91.7 FL (87-102); Mean Platelet Volume 11.5 FL (9.6-12.0); Monocytes % 7.4 % (1.7-12.7); Neutrophils % 71.2 % (38.7-73.9); Platelet Count 61 T/CUMM (130-400); Red Blood Count 3.26 MC/CUMM (3.8-5.5); Red Cell Distribution Width 16.5 % (9.3-17.3); White Blood Count 3.5 T/CUMM (4-12)
[2020-09-04 18:33] LABS: Albumin 2.3 G/DL (3.4-5.0); Bilirubin,Total 0.8 MG/DL (0.2-1.0); Calcium 7.5 MG/DL (8.5-10.1); Osmolality,Calculated 280.1 MOS/KG (273-304); Total Protein 5.6 G/DL (6.4-8.3)
[2020-09-04] MEDS ORDERED: POTASSIUM CHLORIDE 20 MEQ TABLET PO STA (18:34)
[2020-09-04] MEDS ORDERED: DEXTROSE 50% 25 GM/50 ML VIAL IV PRN (19:42)
[2020-09-04] MEDS ORDERED: GLUCAGON 1 MG VIAL IM PRN (19:42)
[2020-09-04] MEDS ORDERED: ceFAZolin 1,000 MG VIAL ONE (21:00)
[2020-09-04] MEDS: POTASSIUM CHLORIDE 20 MEQ TABLET PO SCH ×2 (21:05→23:15)
[2020-09-04] MEDS: ceFAZolin 1,000 MG in SYRINGE 1 EACH IV SCH (21:05)
[2020-09-04] MEDS ORDERED: DEXTROSE 50% 25 GM/50 ML SYRINGE IV PRN (21:10)
[2020-09-04] MEDS: MUPIROCIN 2% OINT 22 GM TUBE TOP SCH (21:20)
[2020-09-04] MEDS: ENOXAPARIN 40 MG/0.4 ML SYRINGE SUBCUT SCH (21:20)
[2020-09-04] MEDS: traZODone 50 MG TABLET PO SCH (23:10)
[2020-09-05] MEDS: ceFAZolin 1,000 MG in SYRINGE 1 EACH IV SCH ×4 (04:25→21:27)
[2020-09-05 05:09] LABS: Calcium 7.4 MG/DL (8.5-10.1); Osmolality,Calculated 284.8 MOS/KG (273-304)
[2020-09-05] MEDS: LEVOTHYROXINE 75 MCG TABLET PO SCH (06:44)
[2020-09-05] MEDS: FERROUS SULFATE 325 MG TABLET PO SCH (10:47)
[2020-09-05] MEDS: SPIRONOLACTONE 25 MG TABLET PO SCH (10:47)
[2020-09-05] MEDS: CALCIUM (CARBONATE) 600 MG TABLET PO SCH (10:47)
[2020-09-05] MEDS: ESCITALOPRAM 10 MG TABLET PO SCH (10:47)
[2020-09-05] MEDS: MUPIROCIN 2% OINT 22 GM TUBE TOP SCH ×3 (10:54→21:10)
[2020-09-05] MEDS: ALPRAZolam 0.25 MG TABLET PO PRN (16:36)
[2020-09-05] MEDS: FLUCONAZOLE 100 MG TABLET PO SCH (16:36)
[2020-09-05] MEDS: traZODone 50 MG TABLET PO SCH (21:08)
[2020-09-05] MEDS: ENOXAPARIN 40 MG/0.4 ML SYRINGE SUBCUT SCH (21:08)
[2020-09-06] MEDS: ceFAZolin 1,000 MG in SYRINGE 1 EACH IV SCH ×3 (03:17→21:21)
[2020-09-06 06:11] LABS: Basophils % 0.5 % (0.0-0.8); Eosinophils # 0.2 10*3/uL (0.0-0.87); Eosinophils % 7.4 % (0.00-10.9); Hemoglobin 8.6 GM/DL (12.0-16.0); Lymphocytes # 0.4 10*3/uL (1.4-4.0); Lymphocytes % 21.6 % (21.3-54.2); Mean Corpuscular HGB Conc 31.9 GM/DL (32-36); Mean Corpuscular Volume 92.5 FL (87-102); Mean Platelet Volume 11.5 FL (9.6-12.0); Monocytes % 7.4 % (1.7-12.7); Neutrophils % 63.1 % (38.7-73.9); Red Blood Count 2.92 MC/CUMM (3.8-5.5); Red Cell Distribution Width 16.7 % (9.3-17.3)
[2020-09-06 06:14] LABS: Platelet Count 44 T/CUMM (130-400)
[2020-09-06 06:23] LABS: Calcium 7.5 MG/DL (8.5-10.1)
[2020-09-06] MEDS: LEVOTHYROXINE 75 MCG TABLET PO SCH (06:27)
[2020-09-06 06:50] LABS: Eosinophils 5 % (0-10); Hypochromasia 2+; Lymphocytes 19 % (20-55); Microcytosis 1+; Ovalocytes Slight; Platelet Estimate Decreased; Segmented Neutrophils 69 % (50-85); Total Cells Counted 100
[2020-09-06] MEDS ORDERED: MAGNESIUM SULF RIDER 2 GM in PREMIX 1 EACH IV ONE (08:00)
[2020-09-06] MEDS: CALCIUM (CARBONATE) 600 MG TABLET PO SCH (11:40)
[2020-09-06] MEDS: SPIRONOLACTONE 25 MG TABLET PO SCH (11:40)
[2020-09-06] MEDS: FERROUS SULFATE 325 MG TABLET PO SCH (11:40)
[2020-09-06] MEDS: FLUCONAZOLE 100 MG TABLET PO SCH (11:40)
[2020-09-06] MEDS: ESCITALOPRAM 10 MG TABLET PO SCH (11:40)
[2020-09-06] MEDS: MUPIROCIN 2% OINT 22 GM TUBE TOP SCH ×4 (11:41→21:16)
[2020-09-06] MEDS: FUROSEMIDE 40 MG TABLET PO SCH (11:52)
[2020-09-06] MEDS: traZODone 50 MG TABLET PO SCH (21:15)
[2020-09-06] MEDS: ENOXAPARIN 40 MG/0.4 ML SYRINGE SUBCUT SCH (21:16)
[2020-09-06] MEDS: ALPRAZolam 0.25 MG TABLET PO PRN (21:16)
[2020-09-07] MEDS: ceFAZolin 1,000 MG in SYRINGE 1 EACH IV SCH ×3 (05:00→21:10)
[2020-09-07 05:56] LABS: Basophils % 0.8 % (0.0-0.8); Eosinophils # 0.2 10*3/uL (0.0-0.87); Eosinophils % 6.4 % (0.00-10.9); Hematocrit 27.3 VOL% (35.7-47.0); Hemoglobin 8.5 GM/DL (12.0-16.0); Immature Granulocytes % 0.4 %; Immature Granulocytes Absolute 0.01 #; Lymphocytes # 0.6 10*3/uL (1.4-4.0); Lymphocytes % 23.1 % (21.3-54.2); Mean Corpuscular HGB Conc 31.1 GM/DL (32-36); Mean Corpuscular Volume 98.2 FL (87-102); Mean Platelet Volume 12.3 FL (9.6-12.0); Monocytes % 7.6 % (1.7-12.7); Neutrophils % 61.7 % (38.7-73.9); Red Blood Count 2.78 MC/CUMM (3.8-5.5); Red Cell Distribution Width 16.5 % (9.3-17.3); White Blood Count 2.6 T/CUMM (4-12)
[2020-09-07 06:00] LABS: Platelet Count 41 T/CUMM (130-400)
[2020-09-07 06:09] LABS: Calcium 7.7 MG/DL (8.5-10.1); Osmolality,Calculated 281.1 MOS/KG (273-304)
[2020-09-07 06:17] LABS: Hypochromasia 1+; Microcytosis 1+; Ovalocytes Slight; Platelet Estimate Decreased
[2020-09-07] MEDS: LEVOTHYROXINE 75 MCG TABLET PO SCH (06:25)
[2020-09-07] MEDS ORDERED: POTASSIUM CHLORIDE 20 MEQ TABLET PO ONE (10:00)
[2020-09-07] MEDS ORDERED: MAGNESIUM SULF RIDER 2 GM in PREMIX 1 EACH IV ONE (10:00)
[2020-09-07] MEDS: ESCITALOPRAM 10 MG TABLET PO SCH (11:54)
[2020-09-07] MEDS: FERROUS SULFATE 325 MG TABLET PO SCH (11:55)
[2020-09-07] MEDS: CALCIUM (CARBONATE) 600 MG TABLET PO SCH (11:55)
[2020-09-07] MEDS: FLUCONAZOLE 100 MG TABLET PO SCH (11:55)
[2020-09-07] MEDS: FUROSEMIDE 40 MG TABLET PO SCH (11:55)
[2020-09-07] MEDS: MUPIROCIN 2% OINT 22 GM TUBE TOP SCH ×3 (11:55→21:10)
[2020-09-07] MEDS: SPIRONOLACTONE 25 MG TABLET PO SCH (11:59)
[2020-09-07] MEDS: traZODone 50 MG TABLET PO SCH (21:07)
[2020-09-07] MEDS: ALPRAZolam 0.25 MG TABLET PO PRN (21:07)
[2020-09-07] MEDS: ONDANSETRON 4 MG/2 ML VIAL IV PRN (21:08)
[2020-09-08] MEDS: LEVOTHYROXINE 75 MCG TABLET PO SCH (05:30)
[2020-09-08] MEDS: ceFAZolin 1,000 MG in SYRINGE 1 EACH IV SCH ×3 (05:30→22:08)
[2020-09-08 06:26] LABS: Basophils % 0.5 % (0.0-0.8); Eosinophils # 0.1 10*3/uL (0.0-0.87); Eosinophils % 6.7 % (0.00-10.9); Hematocrit 27.7 VOL% (35.7-47.0); Hemoglobin 8.8 GM/DL (12.0-16.0); Immature Granulocytes % 0.5 %; Immature Granulocytes Absolute 0.01 #; Lymphocytes # 0.5 10*3/uL (1.4-4.0); Lymphocytes % 25.8 % (21.3-54.2); Mean Corpuscular HGB Conc 31.8 GM/DL (32-36); Mean Corpuscular Volume 95.2 FL (87-102); Mean Platelet Volume 12.8 FL (9.6-12.0); Monocytes % 8.1 % (1.7-12.7); Neutrophils % 58.4 % (38.7-73.9); Red Blood Count 2.91 MC/CUMM (3.8-5.5); Red Cell Distribution Width 16.7 % (9.3-17.3); White Blood Count 2.1 T/CUMM (4-12)
[2020-09-08 06:28] LABS: Platelet Count 39 T/CUMM (130-400)
[2020-09-08 06:47] LABS: Calcium 7.5 MG/DL (8.5-10.1)
[2020-09-08 06:52] LABS: Hypochromasia 1+; Microcytosis 1+; Ovalocytes Slight; Platelet Estimate Decreased
[2020-09-08] MEDS: FUROSEMIDE 40 MG TABLET PO SCH (10:57)
[2020-09-08] MEDS: CALCIUM (CARBONATE) 600 MG TABLET PO SCH (10:57)
[2020-09-08] MEDS: FLUCONAZOLE 100 MG TABLET PO SCH (10:57)
[2020-09-08] MEDS: FERROUS SULFATE 325 MG TABLET PO SCH (10:58)
[2020-09-08] MEDS: ESCITALOPRAM 10 MG TABLET PO SCH (10:58)
[2020-09-08] MEDS: MUPIROCIN 2% OINT 22 GM TUBE TOP SCH ×3 (10:58→20:40)
[2020-09-08] MEDS: SPIRONOLACTONE 25 MG TABLET PO SCH (10:58)
[2020-09-08] MEDS ORDERED: MAGNESIUM SULF RIDER 2 GM in PREMIX 1 EACH IV ONE (14:30)
[2020-09-08] MEDS: traZODone 50 MG TABLET PO SCH (20:41)
[2020-09-09] MEDS: ONDANSETRON 4 MG/2 ML VIAL IV PRN (02:12)
[2020-09-09] MEDS: ceFAZolin 1,000 MG in SYRINGE 1 EACH IV SCH ×2 (06:43→15:09)
[2020-09-09] MEDS: LEVOTHYROXINE 75 MCG TABLET PO SCH (06:43)
[2020-09-09 06:47] LABS: Calcium 7.4 MG/DL (8.5-10.1); Osmolality,Calculated 279.3 MOS/KG (273-304)
[2020-09-09 06:52] LABS: Basophils % 0.8 % (0.0-0.8); Eosinophils # 0.2 10*3/uL (0.0-0.87); Eosinophils % 7.4 % (0.00-10.9); Lymphocytes # 0.6 10*3/uL (1.4-4.0); Lymphocytes % 22.6 % (21.3-54.2); Mean Corpuscular HGB Conc 32.1 GM/DL (32-36); Mean Platelet Volume 13.3 FL (9.6-12.0); Monocytes % 7.8 % (1.7-12.7); Neutrophils % 61.4 % (38.7-73.9); Platelet Count 45 T/CUMM (130-400); Red Blood Count 2.98 MC/CUMM (3.8-5.5); Red Cell Distribution Width 16.7 % (9.3-17.3); White Blood Count 2.4 T/CUMM (4-12)
[2020-09-09] MEDS: MUPIROCIN 2% OINT 22 GM TUBE TOP SCH (08:53)
[2020-09-09] MEDS: ESCITALOPRAM 10 MG TABLET PO SCH (08:53)
[2020-09-09] MEDS: FUROSEMIDE 40 MG TABLET PO SCH (08:53)
[2020-09-09] MEDS: CALCIUM (CARBONATE) 600 MG TABLET PO SCH (08:53)
[2020-09-09] MEDS: SPIRONOLACTONE 25 MG TABLET PO SCH (08:54)
[2020-09-09] MEDS: FLUCONAZOLE 100 MG TABLET PO SCH (08:54)
[2020-09-09] MEDS: FERROUS SULFATE 325 MG TABLET PO SCH (08:54)
[2020-09-09] MEDS ORDERED: DEXTROSE 50% 25 GM/50 ML VIAL IV ONE (10:57)
[2020-09-09] MEDS ORDERED: MAGNESIUM SULF RIDER 2 GM in PREMIX 1 EACH IV ONE (10:57)
[2020-09-09 12:25] VITALS: BP 106/49
== END 2020-09-09 15:05 | disposition home health service (06) | DRG 603 ==
LOC: EDUNIT# → EDBD → N.EDINP 17:31 → N.ED 17:31 → N.3E 09-05 04:13 → SUATTDRO 09-06 14:18
PROVIDERS: ADMIT Internal Medicine; ATTEND Internal Medicine

== ENCOUNTER 2021-08-29 12:23 | Inpatient (IN) ==
[2021-08-29 13:54] LABS: Albumin 2.9 G/DL (3.4-5.0); Bilirubin,Total 1.2 MG/DL (0.20-1.00); Calcium 8.7 MG/DL (8.5-10.1); Osmolality,Calculated 278.5 MOS/KG (273-304); Potassium 3.2 MMOL/L (3.5-5.1); Total Protein 6.6 G/DL (6.4-8.2)
[2021-08-29 13:55] LABS: Basophils % 0.7 % (0.0-0.8); Eosinophils # 0.1 10*3/uL (0.0-0.87); Eosinophils % 1.7 % (0.00-10.9); Hemoglobin 9.1 GM/DL (12.0-16.0); Immature Granulocytes % 0.3 %; Immature Granulocytes Absolute 0.01 #; Lymphocytes # 0.6 10*3/uL (1.4-4.0); Lymphocytes % 19.3 % (21.3-54.2); Mean Corpuscular HGB Conc 30.3 GM/DL (32-36); Mean Corpuscular Volume 78.3 FL (87-102); Monocytes % 5.3 % (1.7-12.7); Neutrophils % 72.7 % (38.7-73.9); Platelet Count 75 T/CUMM (130-400); Red Blood Count 3.83 MC/CUMM (3.8-5.5); Red Cell Distribution Width 17.6 % (9.3-17.3)
[2021-08-29 14:05] LABS: Anisocytosis 2+; Platelet Estimate Decreased
[2021-08-29 14:06] LABS: Burr Cells Few; Hypochromasia Slight; Ovalocytes Few
[2021-08-29] MEDS ORDERED: POTASSIUM CHLORIDE 20 MEQ TABLET PO STA (15:19)
[2021-08-29] MEDS ORDERED: ONDANSETRON 4 MG/2 ML VIAL IV STA (15:30)
[2021-08-29] MEDS ORDERED: DEXTROSE 50% 25 GM/50 ML VIAL IV PRN (17:04)
[2021-08-29] MEDS ORDERED: hydrALAZINE 20 MG/1 ML VIAL IV PRN (17:04)
[2021-08-29] MEDS ORDERED: GLUCAGON 1 MG VIAL IM PRN (17:04)
[2021-08-29] MEDS: traZODone 50 MG TABLET PO SCH (21:32)
[2021-08-29] MEDS: POTASSIUM CHLORIDE 10 MEQ TABLET PO SCH (21:32)
[2021-08-29] MEDS: FERROUS SULFATE 325 MG TABLET PO SCH (21:32)
[2021-08-29] MEDS: ACETAMINOPHEN 325 MG TABLET PO PRN (22:38)
[2021-08-30 06:00] LABS: Basophils % 0.7 % (0.0-0.8); Eosinophils # 0.2 10*3/uL (0.0-0.87); Hematocrit 26.2 VOL% (35.7-47.0); Hemoglobin 7.8 GM/DL (12.0-16.0); Immature Granulocytes % 0.3 %; Immature Granulocytes Absolute 0.01 #; Lymphocytes % 32.1 % (21.3-54.2); Mean Corpuscular HGB Conc 29.8 GM/DL (32-36); Mean Corpuscular Volume 78.2 FL (87-102); Monocytes % 8.9 % (1.7-12.7); Platelet Count 74 T/CUMM (130-400); Red Blood Count 3.35 MC/CUMM (3.8-5.5); Red Cell Distribution Width 17.6 % (9.3-17.3)
[2021-08-30 06:22] LABS: Anisocytosis 2+; Hypochromasia 1+; Platelet Estimate Decreased; Polychromasia Slight
[2021-08-30 06:26] LABS: Albumin 2.5 G/DL (3.4-5.0); Bilirubin,Total 1.6 MG/DL (0.20-1.00); Calcium 8.2 MG/DL (8.5-10.1); Osmolality,Calculated 282.3 MOS/KG (273-304); Potassium 4.1 MMOL/L (3.5-5.1); Risk Ratio 2.33; Thyroid Stimulating Hormone 7.89 uIU/ml (0.358-3.74); Total Protein 5.4 G/DL (6.4-8.2); VLDL Cholesterol 10.2 MG/DL
[2021-08-30] MEDS ORDERED: LEVOTHYROXINE 100 MCG TABLET PO SCH (06:30)
[2021-08-30] MEDS: PANTOPRAZOLE 40 MG TABLET PO SCH (08:25)
[2021-08-30] MEDS: GABAPENTIN 100 MG CAPSULE PO SCH (08:25)
[2021-08-30] MEDS: busPIRone 15 MG TABLET PO SCH (08:25)
[2021-08-30] MEDS: FERROUS SULFATE 325 MG TABLET PO SCH ×3 (08:25→21:05)
[2021-08-30] MEDS: MELOXICAM 7.5 MG TABLET PO SCH (08:25)
[2021-08-30] MEDS: CHOLECALCIFEROL 1,000 UNIT TABLET PO SCH (08:25)
[2021-08-30] MEDS: POTASSIUM CHLORIDE 10 MEQ TABLET PO SCH ×2 (08:25→21:05)
[2021-08-30] MEDS: SODIUM CHLORIDE 0.9% 1,000 ML IV SCH (09:45)
[2021-08-30 12:06] LABS: Basophils % 0.7 % (0.0-0.8); Eosinophils # 0.1 10*3/uL (0.0-0.87); Eosinophils % 4.1 % (0.00-10.9); Hematocrit 27.9 VOL% (35.7-47.0); Hemoglobin 8.2 GM/DL (12.0-16.0); Immature Granulocytes % 0.3 %; Immature Granulocytes Absolute 0.01 #; Lymphocytes # 0.6 10*3/uL (1.4-4.0); Lymphocytes % 20.3 % (21.3-54.2); Mean Corpuscular HGB Conc 29.4 GM/DL (32-36); Mean Corpuscular Volume 78.2 FL (87-102); Monocytes % 5.9 % (1.7-12.7); Neutrophils % 68.7 % (38.7-73.9); Platelet Count 78 T/CUMM (130-400); Red Blood Count 3.57 MC/CUMM (3.8-5.5); Red Cell Distribution Width 17.5 % (9.3-17.3); White Blood Count 2.9 T/CUMM (4-12)
[2021-08-30 12:29] LABS: % Iron Saturation 61.3 % (18-50); Ferritin 9.7 ng/mL (8-252)
[2021-08-30 12:31] LABS: Folate 8.96 NG/ML (5.38-24.0); Vitamin B12 466 PG/ML (211-911)
[2021-08-30 13:14] LABS: Sedimentation Rate-Westergren 15 MM/HR (0-30)
[2021-08-30 13:39] LABS: Anisocytosis 1+; Poikilocytosis Few
[2021-08-30 13:40] LABS: Platelet Estimate Decreased; Target Cells Few
[2021-08-30] MEDS: ACETAMINOPHEN 325 MG TABLET PO PRN (19:50)
[2021-08-30] MEDS: traZODone 50 MG TABLET PO SCH (21:05)
[2021-08-30] MEDS: ONDANSETRON 4 MG/2 ML VIAL IV PRN (21:05)
[2021-08-31] MEDS: ONDANSETRON 4 MG/2 ML VIAL IV PRN (01:54)
[2021-08-31] MEDS ORDERED: LACTULOSE 20 GM/30 ML UDCUP PO ONE (05:51)
[2021-08-31] MEDS: SODIUM CHLORIDE 0.9% 1,000 ML IV SCH (06:17)
[2021-08-31 06:25] LABS: Eosinophils # 0.1 10*3/uL (0.0-0.87); Eosinophils % 3.1 % (0.00-10.9); Hematocrit 26.4 VOL% (35.7-47.0); Immature Granulocytes Absolute 0.02 #; Lymphocytes # 0.4 10*3/uL (1.4-4.0); Lymphocytes % 18.4 % (21.3-54.2); Mean Corpuscular HGB Conc 30.3 GM/DL (32-36); Mean Corpuscular Volume 78.3 FL (87-102); Monocytes % 6.1 % (1.7-12.7); Neutrophils % 70.4 % (38.7-73.9); Red Blood Count 3.37 MC/CUMM (3.8-5.5); Red Cell Distribution Width 17.7 % (9.3-17.3)
[2021-08-31 06:37] LABS: Albumin 2.6 G/DL (3.4-5.0); Bilirubin,Direct 0.26 MG/DL (0.0-0.20); Bilirubin,Indirect 1.1 MG/DL (0.0-1.0); Bilirubin,Total 1.4 MG/DL (0.20-1.00); Total Protein 5.8 G/DL (6.4-8.2)
[2021-08-31 06:38] LABS: Albumin 2.5 G/DL (3.4-5.0); Bilirubin,Total 0.8 MG/DL (0.20-1.00); Calcium 8.6 MG/DL (8.5-10.1); Osmolality,Calculated 285.1 MOS/KG (273-304); Potassium 4.3 MMOL/L (3.5-5.1); Total Protein 5.8 G/DL (6.4-8.2)
[2021-08-31 06:47] LABS: Platelet Count 45 T/CUMM (130-400)
[2021-08-31 06:59] LABS: Anisocytosis 1+; Ovalocytes Few; Platelet Estimate Decreased; Tear Drop Cells Few
[2021-08-31 07:00] LABS: Burr Cells Few
[2021-08-31] MEDS: LEVOTHYROXINE 125 MCG TABLET PO SCH (07:30)
[2021-08-31] MEDS ORDERED: LACTULOSE 20 GM/30 ML UDCUP PO SCH ×2 (09:00→12:00)
[2021-08-31 10:51] LABS: Basophils % 0.3 % (0.0-0.8); Eosinophils % 1.3 % (0.00-10.9); Hematocrit 27.9 VOL% (35.7-47.0); Hemoglobin 8.1 GM/DL (12.0-16.0); Immature Granulocytes % 0.7 %; Immature Granulocytes Absolute 0.02 #; Lymphocytes # 0.6 10*3/uL (1.4-4.0); Lymphocytes % 19.5 % (21.3-54.2); Mean Corpuscular Volume 78.6 FL (87-102); Monocytes % 6.1 % (1.7-12.7); Neutrophils % 72.1 % (38.7-73.9); Platelet Count 65 T/CUMM (130-400); Red Blood Count 3.55 MC/CUMM (3.8-5.5); Red Cell Distribution Width 17.6 % (9.3-17.3)
[2021-08-31 11:06] LABS: Albumin 2.6 G/DL (3.4-5.0); Bilirubin,Total 0.9 MG/DL (0.20-1.00); Calcium 8.8 MG/DL (8.5-10.1); Osmolality,Calculated 292.6 MOS/KG (273-304)
[2021-08-31 11:17] LABS: Anisocytosis 1+; Ovalocytes 1+; Platelet Estimate Decreased
[2021-08-31 11:57] LABS: Hemoglobin A1 (Alkaline) 98.2 % (96.5-98.5); Hemoglobin A2 (Alkaline) 1.8 % (1.5-3.5)
[2021-08-31] MEDS ORDERED: LACTULOSE 320 GM/480 ML BOTTLE RECTAL SCH (13:15)
[2021-08-31] MEDS: busPIRone 15 MG TABLET PO SCH (18:20)
[2021-08-31] MEDS: POTASSIUM CHLORIDE 10 MEQ TABLET PO SCH ×2 (18:21→20:37)
[2021-08-31] MEDS: CHOLECALCIFEROL 1,000 UNIT TABLET PO SCH (18:21)
[2021-08-31] MEDS: GABAPENTIN 100 MG CAPSULE PO SCH (18:21)
[2021-08-31] MEDS: MELOXICAM 7.5 MG TABLET PO SCH (18:21)
[2021-08-31] MEDS: PANTOPRAZOLE 40 MG TABLET PO SCH (18:21)
[2021-08-31] MEDS: LACTULOSE 20 GM/30 ML UDCUP PO SCH (18:22)
[2021-08-31] MEDS: oxyCODONE/ACETAMINOPHEN 5-325 MG TABLET PO PRN (20:37)
[2021-08-31] MEDS: traZODone 50 MG TABLET PO SCH (20:37)
[2021-09-01] MEDS: LACTULOSE 20 GM/30 ML UDCUP PO SCH ×4 (01:10→17:05)
[2021-09-01] MEDS: SODIUM CHLORIDE 0.9% 1,000 ML IV SCH (03:13)
[2021-09-01] MEDS: oxyCODONE/ACETAMINOPHEN 5-325 MG TABLET PO PRN ×2 (11:30→22:06)
[2021-09-01] MEDS: POTASSIUM CHLORIDE 10 MEQ TABLET PO SCH ×2 (11:31→22:06)
[2021-09-01] MEDS: busPIRone 15 MG TABLET PO SCH (11:31)
[2021-09-01] MEDS: MELOXICAM 7.5 MG TABLET PO SCH (11:31)
[2021-09-01] MEDS: LEVOTHYROXINE 125 MCG TABLET PO SCH (11:31)
[2021-09-01] MEDS: GABAPENTIN 100 MG CAPSULE PO SCH (11:31)
[2021-09-01] MEDS: CHOLECALCIFEROL 1,000 UNIT TABLET PO SCH (11:31)
[2021-09-01] MEDS: PANTOPRAZOLE 40 MG TABLET PO SCH (11:31)
[2021-09-01 12:43] LABS: Basophils % 0.6 % (0.0-0.8); Eosinophils # 0.2 10*3/uL (0.0-0.87); Eosinophils % 5.8 % (0.00-10.9); Hematocrit 27.5 VOL% (35.7-47.0); Hemoglobin 7.9 GM/DL (12.0-16.0); Immature Granulocytes % 0.3 %; Immature Granulocytes Absolute 0.01 #; Lymphocytes % 31.8 % (21.3-54.2); Mean Corpuscular HGB Conc 28.7 GM/DL (32-36); Mean Corpuscular Volume 81.6 FL (87-102); Monocytes % 7.7 % (1.7-12.7); Neutrophils % 53.8 % (38.7-73.9); Platelet Count 66 T/CUMM (130-400); Red Blood Count 3.37 MC/CUMM (3.8-5.5); White Blood Count 3.1 T/CUMM (4-12)
[2021-09-01 13:03] LABS: Calcium 8.4 MG/DL (8.5-10.1); Osmolality,Calculated 288.7 MOS/KG (273-304)
[2021-09-01] MEDS ORDERED: MAGNESIUM SULF RIDER 2 GM/50 ML PREMIX IV ONE (14:56)
[2021-09-01] MEDS: carvediloL 3.125 MG TABLET PO SCH (22:06)
[2021-09-01] MEDS: traZODone 50 MG TABLET PO SCH (22:06)
[2021-09-02] MEDS: LACTULOSE 20 GM/30 ML UDCUP PO SCH ×3 (00:33→20:30)
[2021-09-02] MEDS: LEVOTHYROXINE 125 MCG TABLET PO SCH (05:41)
[2021-09-02 05:48] LABS: Albumin 2.5 G/DL (3.4-5.0); Calcium 8.4 MG/DL (8.5-10.1); Potassium 3.6 MMOL/L (3.5-5.1); Total Protein 5.5 G/DL (6.4-8.2)
[2021-09-02 06:20] LABS: Basophils % 0.7 % (0.0-0.8); Eosinophils # 0.3 10*3/uL (0.0-0.87); Eosinophils % 11.7 % (0.00-10.9); Hematocrit 27.2 VOL% (35.7-47.0); Hemoglobin 7.7 GM/DL (12.0-16.0); Immature Granulocytes % 0.4 %; Immature Granulocytes Absolute 0.01 #; Lymphocytes # 0.7 10*3/uL (1.4-4.0); Lymphocytes % 25.9 % (21.3-54.2); Mean Corpuscular HGB Conc 28.3 GM/DL (32-36); Mean Corpuscular Volume 82.7 FL (87-102); Monocytes % 7.1 % (1.7-12.7); Neutrophils % 54.2 % (38.7-73.9); Red Blood Count 3.29 MC/CUMM (3.8-5.5); Red Cell Distribution Width 17.9 % (9.3-17.3); White Blood Count 2.8 T/CUMM (4-12)
[2021-09-02 06:22] LABS: Platelet Count 54 T/CUMM (130-400)
[2021-09-02 06:55] LABS: Eosinophils 6 % (0-10); Hypochromasia 1+; Lymphocytes 31 % (20-55); Microcytosis 1+; Ovalocytes Slight; Platelet Estimate Decreased; Segmented Neutrophils 57 % (50-85); Total Cells Counted 100
[2021-09-02] MEDS: GABAPENTIN 100 MG CAPSULE PO SCH (09:18)
[2021-09-02] MEDS: POTASSIUM CHLORIDE 10 MEQ TABLET PO SCH ×2 (09:18→20:30)
[2021-09-02] MEDS: carvediloL 3.125 MG TABLET PO SCH ×2 (09:18→20:31)
[2021-09-02] MEDS: busPIRone 15 MG TABLET PO SCH (09:18)
[2021-09-02] MEDS: CHOLECALCIFEROL 1,000 UNIT TABLET PO SCH (09:18)
[2021-09-02] MEDS: MELOXICAM 7.5 MG TABLET PO SCH (09:18)
[2021-09-02] MEDS: PANTOPRAZOLE 40 MG TABLET PO SCH (09:18)
[2021-09-02] MEDS: SODIUM CHLORIDE 0.9% 1,000 ML IV SCH (10:09)
[2021-09-02] MEDS: oxyCODONE/ACETAMINOPHEN 5-325 MG TABLET PO PRN (20:30)
[2021-09-02] MEDS: traZODone 50 MG TABLET PO SCH (20:30)
[2021-09-03] MEDS: SODIUM CHLORIDE 0.9% 1,000 ML IV SCH ×2 (06:09→07:41)
[2021-09-03 07:09] LABS: Basophils % 0.8 % (0.0-0.8); Eosinophils # 0.2 10*3/uL (0.0-0.87); Eosinophils % 8.7 % (0.00-10.9); Hematocrit 23.3 VOL% (35.7-47.0); Hemoglobin 6.6 GM/DL (12.0-16.0); Lymphocytes # 0.7 10*3/uL (1.4-4.0); Lymphocytes % 27.3 % (21.3-54.2); Mean Corpuscular HGB Conc 28.3 GM/DL (32-36); Mean Corpuscular Volume 82.6 FL (87-102); Mean Platelet Volume 12.7 FL (9.6-12.0); Monocytes % 5.5 % (1.7-12.7); Neutrophils % 57.7 % (38.7-73.9); Platelet Count 64 T/CUMM (130-400); Red Blood Count 2.82 MC/CUMM (3.8-5.5); Red Cell Distribution Width 17.9 % (9.3-17.3); White Blood Count 2.5 T/CUMM (4-12)
[2021-09-03 07:16] LABS: Hypochromasia 2+; Microcytosis 1+; Ovalocytes Slight; Platelet Estimate Decreased
[2021-09-03 07:27] LABS: Albumin 1.8 G/DL (3.4-5.0); Bilirubin,Total 1.8 MG/DL (0.20-1.00); Calcium 6.9 MG/DL (8.5-10.1); Osmolality,Calculated 294.4 MOS/KG (273-304); Potassium 3.9 MMOL/L (3.5-5.1); Total Protein 4.3 G/DL (6.4-8.2)
[2021-09-03] MEDS: LEVOTHYROXINE 125 MCG TABLET PO SCH (07:42)
[2021-09-03] MEDS: POTASSIUM CHLORIDE 10 MEQ TABLET PO SCH (08:54)
[2021-09-03] MEDS: carvediloL 3.125 MG TABLET PO SCH (08:54)
[2021-09-03] MEDS: busPIRone 15 MG TABLET PO SCH (08:54)
[2021-09-03] MEDS: CHOLECALCIFEROL 1,000 UNIT TABLET PO SCH (08:54)
[2021-09-03] MEDS: GABAPENTIN 100 MG CAPSULE PO SCH (08:54)
[2021-09-03] MEDS: PANTOPRAZOLE 40 MG TABLET PO SCH (08:54)
[2021-09-03] MEDS: LACTULOSE 20 GM/30 ML UDCUP PO SCH (08:55)
[2021-09-03 14:08] VITALS: BP 108/54
[2021-09-03] MEDS ORDERED: HEPARIN LOCK FLUSH 500 UNIT/5 ML SYRINGE IV ONE (15:14)
[2021-09-03] MEDS ORDERED: FUROSEMIDE 20 MG TABLET PO SCH (16:00)
== END 2021-09-03 15:40 | disposition home health service (06) | DRG 312 ==
LOC: EDUNIT# → EDBD → N.EDINP 12:23 → N.ED 12:23 → N.EDINP 17:55 → N.TELES 18:04 → SUATTDRO 08-30 10:55 → N.TELES 08-31 17:42
PROVIDERS: ADMIT Internal Medicine; ATTEND Internal Medicine

== ENCOUNTER 2021-09-04 14:41 | Inpatient (IN) ==
[2021-09-04 15:39] LABS: Basophils % 0.5 % (0.0-0.8); Eosinophils # 0.1 10*3/uL (0.0-0.87); Hematocrit 31.6 VOL% (35.7-47.0); Hemoglobin 9.7 GM/DL (12.0-16.0); Lymphocytes # 0.5 10*3/uL (1.4-4.0); Lymphocytes % 22.7 % (21.3-54.2); Mean Corpuscular HGB Conc 30.7 GM/DL (32-36); Mean Corpuscular Volume 82.1 FL (87-102); Mean Platelet Volume 12.4 FL (9.6-12.0); Monocytes % 8.6 % (1.7-12.7); Neutrophils % 64.2 % (38.7-73.9); Platelet Count 55 T/CUMM (130-400); Red Blood Count 3.85 MC/CUMM (3.8-5.5); Red Cell Distribution Width 18.6 % (9.3-17.3)
[2021-09-04 15:51] LABS: INR 1.3; PT Patient Result 14.6 SECS (10.5-12.0)
[2021-09-04 16:04] LABS: Alanine Aminotransferase 19 U/L (13-56); Albumin 2.2 G/DL (3.4-5.0); Alkaline Phosphatase 120 U/L (45-117); Aspartate Amino Transferase 22 U/L (0-37); Blood Urea Nitrogen 16 MG/DL (7-18); Calcium 8.2 MG/DL (8.5-10.1); Carbon Dioxide 20 MMOL/L (21-32); Estimated Glom Filtration Rate 80 ML/MIN; Glucose 102 MG/DL (74-106); Osmolality,Calculated 292.4 MOS/KG (273-304); Potassium 4.1 MMOL/L (3.5-5.1); Sodium 147 MMOL/L (136-145); Total Protein 5.1 G/DL (6.4-8.2)
[2021-09-04 16:38] LABS: Bacteria,Urine Occasional /HPF (Few); Bilirubin,Urine Negative (Negative); Blood, Urine Small mg/dL (Negative); Glucose,Urine (UA) Negative (Negative); Hyaline Casts,Urine 5 /LPF (0-3); Ketones,Urine Negative (Negative); Mucus,Urine Few /LPF (Occasional); Nitrite,Urine Positive (Negative); Protein,Urine Negative; RBC,Urine <1 /HPF (0-4); Squamous Epithelial Cell,Urine Occasional /HPF (0-10); Urine Appearance Slightly Hazy (Clear); Urine Color Yellow (Yellow); Urine Specific Gravity 1.016 (1.001-1.035); Urine Urobilinogen < 2.0 EU/DL (0.2-1.0)
[2021-09-04 17:02] LABS: Barbiturates Screen,Urine Negative (Negative); Benzodiazepines Screen,Urine Positive (Negative); Cannabinoid Screen,Urine Negative (Negative); Opiate Screen,Urine Negative (Negative); Phencyclidine Screen,Urine Negative (Negative)
[2021-09-04] MEDS ORDERED: oxyCODONE/ACETAMINOPHEN 5-325 MG TABLET PO PRN (17:27)
[2021-09-04] MEDS ORDERED: ENOXAPARIN 40 MG/0.4 ML SYRINGE SUBCUT SCH (17:30)
[2021-09-04 18:47] LABS: Eosinophils 4 % (0-10); Hypochromasia 1+; Lymphocytes 17 % (20-55); Misc Morphology 3; Segmented Neutrophils 74 % (50-85); Total Cells Counted 100
[2021-09-04 18:48] LABS: Burr Cells Slight; Microcytosis Slight
[2021-09-04 18:49] LABS: Ovalocytes Slight; Platelet Estimate Decreased
[2021-09-04] MEDS ORDERED: LORazepam 2 MG/1 ML VIAL IV ONE (20:42)
[2021-09-04] MEDS: FUROSEMIDE 20 MG TABLET PO SCH (20:56)
[2021-09-04] MEDS: FERROUS SULFATE 325 MG TABLET PO SCH (20:56)
[2021-09-04] MEDS: LACTULOSE 20 GM/30 ML UDCUP PO SCH (20:57)
[2021-09-05] MEDS: LORazepam 2 MG/1 ML VIAL IV PRN ×2 (03:10→20:43)
[2021-09-05] MEDS: MAGNESIUM SULF RIDER 2 GM/50 ML PREMIX IV PRN (05:40)
[2021-09-05 07:00] LABS: Eosinophils # 0.1 10*3/uL (0.0-0.87); Hematocrit 33.3 VOL% (35.7-47.0); Immature Granulocytes % 0.5 %; Immature Granulocytes Absolute 0.01 #; Lymphocytes # 0.5 10*3/uL (1.4-4.0); Lymphocytes % 26.9 % (21.3-54.2); Mean Corpuscular Volume 83.5 FL (87-102); Neutrophils % 56.6 % (38.7-73.9); Red Blood Count 3.99 MC/CUMM (3.8-5.5); Red Cell Distribution Width 18.6 % (9.3-17.3)
[2021-09-05 07:02] LABS: Platelet Count 50 T/CUMM (130-400)
[2021-09-05 07:19] LABS: Platelet Estimate Decreased
[2021-09-05 07:23] LABS: INR 1.3; PT Patient Result 14.5 SECS (10.5-12.0)
[2021-09-05] MEDS: PANTOPRAZOLE 40 MG TABLET PO SCH (07:23)
[2021-09-05] MEDS: LEVOTHYROXINE 100 MCG TABLET PO SCH (07:23)
[2021-09-05 07:32] LABS: Bilirubin,Total 1.5 MG/DL (0.20-1.00); Calcium 8.2 MG/DL (8.5-10.1); Osmolality,Calculated 291.4 MOS/KG (273-304); Potassium 3.8 MMOL/L (3.5-5.1)
[2021-09-05] MEDS ORDERED: PANTOPRAZOLE 40 MG TABLET PO SCH (09:00)
[2021-09-05] MEDS: CHOLECALCIFEROL 1,000 UNIT TABLET PO SCH (10:07)
[2021-09-05] MEDS: FUROSEMIDE 20 MG TABLET PO SCH ×2 (10:07→20:43)
[2021-09-05] MEDS: FERROUS SULFATE 325 MG TABLET PO SCH ×3 (10:07→20:43)
[2021-09-05] MEDS: LACTULOSE 20 GM/30 ML UDCUP PO SCH ×3 (10:07→20:42)
[2021-09-05] MEDS: DEXTROSE 5% NACL 0.45% 1,000 ML IV SCH ×2 (10:41→18:41)
[2021-09-05] MEDS ORDERED: OLANZapine 10 MG VIAL IM ONE (22:55)
[2021-09-06] MEDS: DEXTROSE 5% NACL 0.45% 1,000 ML IV SCH ×3 (03:10→21:04)
[2021-09-06] MEDS: LORazepam 2 MG/1 ML VIAL IV PRN ×3 (03:15→16:14)
[2021-09-06 04:08] LABS: Basophils % 0.7 % (0.0-0.8); Eosinophils # 0.2 10*3/uL (0.0-0.87); Eosinophils % 5.8 % (0.00-10.9); Hematocrit 31.9 VOL% (35.7-47.0); Hemoglobin 9.5 GM/DL (12.0-16.0); Lymphocytes # 0.5 10*3/uL (1.4-4.0); Lymphocytes % 16.3 % (21.3-54.2); Mean Corpuscular HGB Conc 29.8 GM/DL (32-36); Mean Corpuscular Volume 82.9 FL (87-102); Monocytes % 6.8 % (1.7-12.7); Neutrophils % 70.4 % (38.7-73.9); Platelet Count 51 T/CUMM (130-400); Red Blood Count 3.85 MC/CUMM (3.8-5.5); Red Cell Distribution Width 18.6 % (9.3-17.3); White Blood Count 2.9 T/CUMM (4-12)
[2021-09-06 04:25] LABS: Hypochromasia Slight; Microcytosis Slight; Platelet Estimate Decreased
[2021-09-06 04:31] LABS: Albumin 2.2 G/DL (3.4-5.0); Bilirubin,Total 1.8 MG/DL (0.20-1.00); Calcium 7.7 MG/DL (8.5-10.1); Osmolality,Calculated 285.8 MOS/KG (273-304); Potassium 3.5 MMOL/L (3.5-5.1)
[2021-09-06] MEDS: LEVOTHYROXINE 100 MCG TABLET PO SCH (05:48)
[2021-09-06] MEDS: PANTOPRAZOLE 40 MG TABLET PO SCH (05:48)
[2021-09-06] MEDS: MAGNESIUM SULF RIDER 4 GM/100 ML PREMIX IV PRN (06:40)
[2021-09-06] MEDS ORDERED: LORazepam 2 MG/1 ML VIAL ONE ×2 (07:48→16:11)
[2021-09-06] MEDS: LACTULOSE 20 GM/30 ML UDCUP PO SCH ×3 (08:38→21:04)
[2021-09-06] MEDS: FERROUS SULFATE 325 MG TABLET PO SCH ×2 (09:59→14:21)
[2021-09-06] MEDS: FUROSEMIDE 20 MG TABLET PO SCH ×2 (09:59→21:04)
[2021-09-06] MEDS: CHOLECALCIFEROL 1,000 UNIT TABLET PO SCH (10:00)
[2021-09-06 17:08] LABS: Bacteria,Urine Occasional /HPF (Few); Bilirubin,Urine Negative (Negative); Blood, Urine Large mg/dL (Negative); Glucose,Urine (UA) Negative (Negative); Ketones,Urine Negative (Negative); Mucus,Urine Occasional /LPF (Occasional); Nitrite,Urine Positive (Negative); Protein,Urine Negative; RBC,Urine 115 /HPF (0-4); Squamous Epithelial Cell,Urine Occasional /HPF (0-10); Urine Appearance CLEAR (Clear); Urine Color Yellow (Yellow); Urine Specific Gravity 1.014 (1.001-1.035)
[2021-09-06] MEDS: FERROUS SULFATE 300 MG/5 ML UDCUP PO SCH (21:04)
[2021-09-07] MEDS: DEXTROSE 5% NACL 0.45% 1,000 ML IV SCH ×4 (05:12→21:25)
[2021-09-07] MEDS: LEVOTHYROXINE 100 MCG TABLET PO SCH (05:46)
[2021-09-07 06:42] LABS: Basophils % 0.2 % (0.0-0.8); Eosinophils # 0.1 10*3/uL (0.0-0.87); Eosinophils % 2.3 % (0.00-10.9); Hematocrit 31.4 VOL% (35.7-47.0); Immature Granulocytes % 0.5 %; Immature Granulocytes Absolute 0.02 #; Lymphocytes # 0.5 10*3/uL (1.4-4.0); Lymphocytes % 10.8 % (21.3-54.2); Mean Corpuscular HGB Conc 31.8 GM/DL (32-36); Mean Corpuscular Volume 80.3 FL (87-102); Neutrophils % 79.2 % (38.7-73.9); Platelet Count 55 T/CUMM (130-400); Red Blood Count 3.91 MC/CUMM (3.8-5.5); Red Cell Distribution Width 19.3 % (9.3-17.3); White Blood Count 4.3 T/CUMM (4-12)
[2021-09-07 06:51] LABS: Calcium 7.7 MG/DL (8.5-10.1); Osmolality,Calculated 275.5 MOS/KG (273-304); Potassium 3.3 MMOL/L (3.5-5.1)
[2021-09-07 07:03] LABS: Hypochromasia 2+
[2021-09-07 07:04] LABS: Platelet Estimate Decreased
[2021-09-07] MEDS: cefTRIAXone 1,000 MG in SODIUM CHLORIDE 0.9% 100 ML IV SCH (08:59)
[2021-09-07] MEDS: PANTOPRAZOLE 40 MG VIAL IV SCH (08:59)
[2021-09-07] MEDS: MAGNESIUM SULF RIDER 2 GM/50 ML PREMIX IV PRN (09:42)
[2021-09-07] MEDS: LACTULOSE 20 GM/30 ML UDCUP PO SCH ×3 (10:14→20:55)
[2021-09-07] MEDS: FERROUS SULFATE 300 MG/5 ML UDCUP PO SCH ×3 (10:15→20:55)
[2021-09-07] MEDS: CHOLECALCIFEROL 1,000 UNIT TABLET PO SCH (10:15)
[2021-09-07] MEDS: FUROSEMIDE 20 MG TABLET PO SCH ×2 (10:15→20:55)
[2021-09-07] MEDS: POTASSIUM CHLORIDE RIDER 10 MEQ/100 ML PREMIX IV PRN ×4 (11:50→15:06)
[2021-09-07] MEDS ORDERED: METOPROLOL TARTRATE 5 MG/5 ML VIAL IV ONE ×2 (12:03→13:09)
[2021-09-07 13:14] LABS: Calcium 7.3 MG/DL (8.5-10.1); Potassium 3.5 MMOL/L (3.5-5.1)
[2021-09-07 13:42] LABS: ABG HCO3 21.9 MMOL/L (20-26); ABG Oxygen Saturation 97.3 % (95-100); ABG PCO2 29.1 MM HG (35-48); ABG PH 7.447 (7.35-7.45); ABG PO2 88.4 MM HG (80-95); Pt O2 Delivery Device Room Air
[2021-09-07] MEDS: LORazepam 2 MG/1 ML VIAL IV PRN (19:35)
[2021-09-08 05:22] LABS: Basophils % 0.5 % (0.0-0.8); Eosinophils # 0.3 10*3/uL (0.0-0.87); Eosinophils % 6.6 % (0.00-10.9); Hemoglobin 9.7 GM/DL (12.0-16.0); Lymphocytes # 0.5 10*3/uL (1.4-4.0); Lymphocytes % 13.2 % (21.3-54.2); Mean Corpuscular HGB Conc 31.3 GM/DL (32-36); Mean Corpuscular Volume 81.8 FL (87-102); Monocytes % 8.4 % (1.7-12.7); Neutrophils % 71.3 % (38.7-73.9); Platelet Count 42 T/CUMM (130-400); Red Blood Count 3.79 MC/CUMM (3.8-5.5); Red Cell Distribution Width 19.5 % (9.3-17.3); White Blood Count 3.8 T/CUMM (4-12)
[2021-09-08] MEDS: DEXTROSE 5% NACL 0.45% 1,000 ML IV SCH ×2 (05:25→05:49)
[2021-09-08] MEDS: LEVOTHYROXINE 100 MCG TABLET PO SCH (05:40)
[2021-09-08 05:42] LABS: Anisocytosis 1+; Burr Cells Few; Platelet Estimate Decreased
[2021-09-08 05:43] LABS: Ovalocytes Few; Poikilocytosis Slight
[2021-09-08 05:58] LABS: Albumin 2.2 G/DL (3.4-5.0); Bilirubin,Total 1.9 MG/DL (0.20-1.00); Calcium 7.6 MG/DL (8.5-10.1); Osmolality,Calculated 273.7 MOS/KG (273-304); Potassium 3.7 MMOL/L (3.5-5.1); Total Protein 4.8 G/DL (6.4-8.2)
[2021-09-08] MEDS: POTASSIUM CHLORIDE RIDER 10 MEQ/100 ML PREMIX IV PRN ×2 (06:40→08:30)
[2021-09-08] MEDS: PANTOPRAZOLE 40 MG VIAL IV SCH (08:29)
[2021-09-08] MEDS: cefTRIAXone 1,000 MG in SODIUM CHLORIDE 0.9% 100 ML IV SCH (08:30)
[2021-09-08] MEDS: LORazepam 2 MG/1 ML VIAL IV PRN ×2 (08:40→18:29)
[2021-09-08] MEDS: LACTULOSE 20 GM/30 ML UDCUP PO SCH ×4 (10:47→21:54)
[2021-09-08] MEDS: FERROUS SULFATE 300 MG/5 ML UDCUP PO SCH ×3 (10:47→21:53)
[2021-09-08] MEDS: FUROSEMIDE 20 MG TABLET PO SCH ×2 (10:47→21:53)
[2021-09-08] MEDS: CHOLECALCIFEROL 1,000 UNIT TABLET PO SCH (10:47)
[2021-09-08] MEDS: MAGNESIUM SULF RIDER 2 GM/50 ML PREMIX IV PRN (11:11)
[2021-09-08] MEDS: METOPROLOL TARTRATE 25 MG TABLET PO SCH ×2 (11:12→21:53)
[2021-09-08] MEDS: DILTIAZEM 30 MG TABLET PO SCH ×2 (13:00→21:53)
[2021-09-08 14:51] LABS: Basophils % 0.2 % (0.0-0.8); Eosinophils # 0.2 10*3/uL (0.0-0.87); Eosinophils % 5.5 % (0.00-10.9); Hematocrit 31.3 VOL% (35.7-47.0); Hemoglobin 9.6 GM/DL (12.0-16.0); Immature Granulocytes % 0.2 %; Immature Granulocytes Absolute 0.01 #; Lymphocytes # 0.4 10*3/uL (1.4-4.0); Lymphocytes % 8.9 % (21.3-54.2); Mean Corpuscular HGB Conc 30.7 GM/DL (32-36); Mean Corpuscular Volume 81.9 FL (87-102); Monocytes % 8.4 % (1.7-12.7); Neutrophils % 76.8 % (38.7-73.9); Platelet Count 51 T/CUMM (130-400); Red Blood Count 3.82 MC/CUMM (3.8-5.5); Red Cell Distribution Width 19.5 % (9.3-17.3); White Blood Count 4.4 T/CUMM (4-12)
[2021-09-08 15:02] LABS: INR 1.3; PT Patient Result 14.5 SECS (10.5-12.0)
[2021-09-08] MEDS: ASCORBIC ACID 500 MG TABLET PO SCH (21:53)
[2021-09-09] MEDS: LORazepam 2 MG/1 ML VIAL IV PRN ×2 (03:08→20:50)
[2021-09-09 05:33] LABS: Basophils % 0.6 % (0.0-0.8); Eosinophils # 0.2 10*3/uL (0.0-0.87); Eosinophils % 7.2 % (0.00-10.9); Hematocrit 29.3 VOL% (35.7-47.0); Hemoglobin 9.1 GM/DL (12.0-16.0); Immature Granulocytes % 0.3 %; Immature Granulocytes Absolute 0.01 #; Lymphocytes # 0.6 10*3/uL (1.4-4.0); Lymphocytes % 18.4 % (21.3-54.2); Mean Corpuscular HGB Conc 31.1 GM/DL (32-36); Mean Corpuscular Volume 82.8 FL (87-102); Monocytes % 9.4 % (1.7-12.7); Neutrophils % 64.1 % (38.7-73.9); Platelet Count 41 T/CUMM (130-400); Red Blood Count 3.54 MC/CUMM (3.8-5.5); Red Cell Distribution Width 19.8 % (9.3-17.3); White Blood Count 3.2 T/CUMM (4-12)
[2021-09-09] MEDS: LACTULOSE 20 GM/30 ML UDCUP PO SCH ×4 (05:33→22:03)
[2021-09-09] MEDS: LEVOTHYROXINE 100 MCG TABLET PO SCH (05:38)
[2021-09-09 05:48] LABS: Albumin 1.9 G/DL (3.4-5.0); Bilirubin,Total 1.1 MG/DL (0.20-1.00); Calcium 7.6 MG/DL (8.5-10.1); Osmolality,Calculated 278.4 MOS/KG (273-304); Potassium 3.7 MMOL/L (3.5-5.1); Total Protein 4.5 G/DL (6.4-8.2)
[2021-09-09] MEDS: cefTRIAXone 1,000 MG in SODIUM CHLORIDE 0.9% 100 ML IV SCH (10:18)
[2021-09-09] MEDS: PANTOPRAZOLE 40 MG VIAL IV SCH (10:20)
[2021-09-09] MEDS: DILTIAZEM 30 MG TABLET PO SCH ×2 (10:21→22:01)
[2021-09-09] MEDS: ASCORBIC ACID 500 MG TABLET PO SCH ×2 (10:21→22:01)
[2021-09-09] MEDS: FUROSEMIDE 20 MG TABLET PO SCH ×2 (10:21→22:01)
[2021-09-09] MEDS: CHOLECALCIFEROL 1,000 UNIT TABLET PO SCH (10:21)
[2021-09-09] MEDS: FERROUS SULFATE 300 MG/5 ML UDCUP PO SCH ×3 (10:25→22:03)
[2021-09-09] MEDS: METOPROLOL TARTRATE 25 MG TABLET PO SCH ×2 (10:25→22:01)
[2021-09-09] MEDS: DEXTROSE 5% NACL 0.45% 1,000 ML IV SCH (10:33)
[2021-09-10] MEDS: DEXTROSE 5% NACL 0.45% 1,000 ML IV SCH ×3 (00:25→16:49)
[2021-09-10] MEDS: LACTULOSE 20 GM/30 ML UDCUP PO SCH ×6 (00:26→22:31)
[2021-09-10] MEDS: LORazepam 2 MG/1 ML VIAL IV PRN ×3 (01:00→14:25)
[2021-09-10 05:34] LABS: Basophils % 0.6 % (0.0-0.8); Eosinophils # 0.3 10*3/uL (0.0-0.87); Eosinophils % 10.2 % (0.00-10.9); Hematocrit 31.1 VOL% (35.7-47.0); Hemoglobin 9.8 GM/DL (12.0-16.0); Immature Granulocytes % 0.3 %; Immature Granulocytes Absolute 0.01 #; Lymphocytes # 0.7 10*3/uL (1.4-4.0); Lymphocytes % 21.7 % (21.3-54.2); Mean Corpuscular HGB Conc 31.5 GM/DL (32-36); Mean Corpuscular Volume 82.1 FL (87-102); Monocytes % 10.5 % (1.7-12.7); Neutrophils % 56.7 % (38.7-73.9); Platelet Count 49 T/CUMM (130-400); Red Blood Count 3.79 MC/CUMM (3.8-5.5); Red Cell Distribution Width 19.8 % (9.3-17.3); White Blood Count 3.2 T/CUMM (4-12)
[2021-09-10 05:54] LABS: Albumin 2.3 G/DL (3.4-5.0); Bilirubin,Total 1.4 MG/DL (0.20-1.00); Calcium 8.1 MG/DL (8.5-10.1); Osmolality,Calculated 282.8 MOS/KG (273-304); Potassium 3.4 MMOL/L (3.5-5.1); Total Protein 5.3 G/DL (6.4-8.2)
[2021-09-10 06:06] LABS: Eosinophils 4 % (0-10); Hypochromasia 1+; Lymphocytes 19 % (20-55); Microcytosis 1+; Ovalocytes Slight; Segmented Neutrophils 64 % (50-85); Total Cells Counted 100
[2021-09-10] MEDS: LEVOTHYROXINE 100 MCG TABLET PO SCH (06:06)
[2021-09-10 06:07] LABS: Platelet Estimate Decreased
[2021-09-10] MEDS: cefTRIAXone 1,000 MG in SODIUM CHLORIDE 0.9% 100 ML IV SCH (09:52)
[2021-09-10] MEDS: ASCORBIC ACID 500 MG TABLET PO SCH ×2 (09:53→22:30)
[2021-09-10] MEDS: METOPROLOL TARTRATE 25 MG TABLET PO SCH (09:53)
[2021-09-10] MEDS: FUROSEMIDE 20 MG TABLET PO SCH ×2 (09:54→22:31)
[2021-09-10] MEDS: CHOLECALCIFEROL 1,000 UNIT TABLET PO SCH (09:59)
[2021-09-10] MEDS: DILTIAZEM 30 MG TABLET PO SCH ×2 (09:59→22:31)
[2021-09-10] MEDS: FERROUS SULFATE 300 MG/5 ML UDCUP PO SCH ×3 (10:00→22:31)
[2021-09-10] MEDS: PANTOPRAZOLE 40 MG VIAL IV SCH (10:00)
[2021-09-10] MEDS ORDERED: POTASSIUM CHLORIDE 20 MEQ TABLET PO ONE (10:50)
[2021-09-10] MEDS: SPIRONOLACTONE 25 MG TABLET PO SCH (11:58)
[2021-09-10] MEDS: POTASSIUM CHLORIDE RIDER 10 MEQ/100 ML PREMIX IV PRN ×3 (13:24→18:19)
[2021-09-10] MEDS: MAGNESIUM SULF RIDER 2 GM/50 ML PREMIX IV PRN (13:24)
[2021-09-10] MEDS: carvediloL 3.125 MG TABLET PO SCH (22:31)
[2021-09-11] MEDS: LACTULOSE 20 GM/30 ML UDCUP PO SCH ×6 (05:34→23:11)
[2021-09-11] MEDS: DEXTROSE 5% NACL 0.45% 1,000 ML IV SCH ×2 (09:46→14:25)
[2021-09-11] MEDS: LEVOTHYROXINE 100 MCG TABLET PO SCH ×2 (09:49→12:32)
[2021-09-11] MEDS: SPIRONOLACTONE 25 MG TABLET PO SCH (09:49)
[2021-09-11] MEDS: DILTIAZEM 30 MG TABLET PO SCH ×3 (09:49→23:12)
[2021-09-11] MEDS: carvediloL 3.125 MG TABLET PO SCH ×3 (09:50→23:12)
[2021-09-11] MEDS: CHOLECALCIFEROL 1,000 UNIT TABLET PO SCH (09:50)
[2021-09-11] MEDS: ASCORBIC ACID 500 MG TABLET PO SCH ×2 (09:50→23:11)
[2021-09-11] MEDS: FERROUS SULFATE 300 MG/5 ML UDCUP PO SCH ×4 (09:50→23:11)
[2021-09-11] MEDS: FUROSEMIDE 20 MG TABLET PO SCH ×3 (09:50→23:11)
[2021-09-11] MEDS: cefTRIAXone 1,000 MG in SODIUM CHLORIDE 0.9% 100 ML IV SCH (10:25)
[2021-09-11] MEDS: PANTOPRAZOLE 40 MG VIAL IV SCH (10:53)
[2021-09-11 11:22] LABS: Basophils % 0.4 % (0.0-0.8); Eosinophils # 0.3 10*3/uL (0.0-0.87); Eosinophils % 11.6 % (0.00-10.9); Hematocrit 34.9 VOL% (35.7-47.0); Hemoglobin 10.8 GM/DL (12.0-16.0); Immature Granulocytes % 0.4 %; Immature Granulocytes Absolute 0.01 #; Lymphocytes # 0.6 10*3/uL (1.4-4.0); Lymphocytes % 23.1 % (21.3-54.2); Mean Corpuscular HGB Conc 30.9 GM/DL (32-36); Mean Corpuscular Volume 81.9 FL (87-102); Monocytes % 8.8 % (1.7-12.7); Neutrophils % 55.7 % (38.7-73.9); Platelet Count 54 T/CUMM (130-400); Red Blood Count 4.26 MC/CUMM (3.8-5.5); Red Cell Distribution Width 19.9 % (9.3-17.3); White Blood Count 2.5 T/CUMM (4-12)
[2021-09-11 11:44] LABS: Band Neutrophils 1 % (0-10); Eosinophils 9 % (0-10); Hypochromasia 2+; Lymphocytes 20 % (20-55); Metamyelocytes 1 %; Microcytosis 1+; Segmented Neutrophils 61 % (50-85); Total Cells Counted 100
[2021-09-11 11:45] LABS: Ovalocytes Few; Platelet Estimate Decreased
[2021-09-11 11:47] LABS: Albumin 2.3 G/DL (3.4-5.0); Bilirubin,Total 2.1 MG/DL (0.20-1.00); Calcium 8.1 MG/DL (8.5-10.1); Osmolality,Calculated 277.3 MOS/KG (273-304); Potassium 3.6 MMOL/L (3.5-5.1); Total Protein 5.5 G/DL (6.4-8.2)
[2021-09-11] MEDS: MAGNESIUM SULF RIDER 4 GM/100 ML PREMIX IV PRN (12:21)
[2021-09-11] MEDS: LORazepam 2 MG/1 ML VIAL IV PRN (23:12)
[2021-09-12] MEDS: LACTULOSE 20 GM/30 ML UDCUP PO SCH ×4 (02:03→20:50)
[2021-09-12] MEDS: DEXTROSE 5% NACL 0.45% 1,000 ML IV SCH (05:58)
[2021-09-12] MEDS: LEVOTHYROXINE 100 MCG TABLET PO SCH (06:36)
[2021-09-12] MEDS: PANTOPRAZOLE 40 MG TABLET PO SCH (06:36)
[2021-09-12 07:02] LABS: Basophils % 0.7 % (0.0-0.8); Eosinophils # 0.3 10*3/uL (0.0-0.87); Eosinophils % 7.5 % (0.00-10.9); Hematocrit 34.6 VOL% (35.7-47.0); Hemoglobin 11.1 GM/DL (12.0-16.0); Immature Granulocytes % 0.2 %; Immature Granulocytes Absolute 0.01 #; Lymphocytes # 0.8 10*3/uL (1.4-4.0); Lymphocytes % 18.8 % (21.3-54.2); Mean Corpuscular HGB Conc 32.1 GM/DL (32-36); Mean Corpuscular Volume 80.8 FL (87-102); Mean Platelet Volume 11.5 FL (9.6-12.0); Monocytes % 9.6 % (1.7-12.7); Neutrophils % 63.2 % (38.7-73.9); Red Blood Count 4.28 MC/CUMM (3.8-5.5); Red Cell Distribution Width 19.9 % (9.3-17.3); White Blood Count 4.3 T/CUMM (4-12)
[2021-09-12 07:03] LABS: Platelet Count 70 T/CUMM (130-400)
[2021-09-12 07:19] LABS: Anisocytosis 2+; Burr Cells Few; Ovalocytes Few; Platelet Estimate Decreased; Poikilocytosis 1+; Tear Drop Cells Few
[2021-09-12 07:26] LABS: Bilirubin,Total 1.5 MG/DL (0.20-1.00); Potassium 3.4 MMOL/L (3.5-5.1); Total Protein 5.1 G/DL (6.4-8.2)
[2021-09-12] MEDS: FERROUS SULFATE 300 MG/5 ML UDCUP PO SCH ×3 (08:41→20:48)
[2021-09-12] MEDS: cefTRIAXone 1,000 MG in SODIUM CHLORIDE 0.9% 100 ML IV SCH (08:41)
[2021-09-12] MEDS: DILTIAZEM 30 MG TABLET PO SCH ×2 (08:41→20:47)
[2021-09-12] MEDS: ASCORBIC ACID 500 MG TABLET PO SCH ×2 (08:41→20:48)
[2021-09-12] MEDS: carvediloL 3.125 MG TABLET PO SCH ×2 (08:41→20:47)
[2021-09-12] MEDS: SPIRONOLACTONE 25 MG TABLET PO SCH (08:41)
[2021-09-12] MEDS: FUROSEMIDE 20 MG TABLET PO SCH ×2 (08:41→20:47)
[2021-09-12] MEDS: CHOLECALCIFEROL 1,000 UNIT TABLET PO SCH (08:41)
[2021-09-12] MEDS: POTASSIUM CHLORIDE 10 MEQ TABLET PO SCH (20:47)
[2021-09-12] MEDS: MAGNESIUM OXIDE 400 MG TABLET PO SCH (20:48)
[2021-09-13] MEDS: PANTOPRAZOLE 40 MG TABLET PO SCH (06:08)
[2021-09-13] MEDS: LEVOTHYROXINE 100 MCG TABLET PO SCH (06:08)
[2021-09-13 06:19] LABS: Basophils % 0.7 % (0.0-0.8); Eosinophils # 0.3 10*3/uL (0.0-0.87); Eosinophils % 6.3 % (0.00-10.9); Hematocrit 32.7 VOL% (35.7-47.0); Hemoglobin 10.4 GM/DL (12.0-16.0); Immature Granulocytes % 0.2 %; Immature Granulocytes Absolute 0.01 #; Lymphocytes # 1.1 10*3/uL (1.4-4.0); Lymphocytes % 25.4 % (21.3-54.2); Mean Corpuscular HGB Conc 31.8 GM/DL (32-36); Mean Corpuscular Volume 81.3 FL (87-102); Mean Platelet Volume 11.4 FL (9.6-12.0); Monocytes % 9.9 % (1.7-12.7); Neutrophils % 57.5 % (38.7-73.9); Platelet Count 70 T/CUMM (130-400); Red Blood Count 4.02 MC/CUMM (3.8-5.5); Red Cell Distribution Width 20.3 % (9.3-17.3); White Blood Count 4.5 T/CUMM (4-12)
[2021-09-13 06:41] LABS: Albumin 2.2 G/DL (3.4-5.0); Calcium 8.3 MG/DL (8.5-10.1); Osmolality,Calculated 280.1 MOS/KG (273-304); Potassium 3.4 MMOL/L (3.5-5.1); Total Protein 4.8 G/DL (6.4-8.2)
[2021-09-13 06:42] LABS: Hypochromasia 1+; Microcytosis 1+
[2021-09-13 06:43] LABS: Ovalocytes Few; Platelet Estimate Decreased
[2021-09-13] MEDS: LACTULOSE 20 GM/30 ML UDCUP PO SCH ×2 (08:00→20:24)
[2021-09-13] MEDS: POTASSIUM CHLORIDE 10 MEQ TABLET PO SCH ×2 (08:01→20:24)
[2021-09-13] MEDS: CHOLECALCIFEROL 1,000 UNIT TABLET PO SCH (08:01)
[2021-09-13] MEDS: MULTIVITAMIN (CENTRUM) TABLET PO SCH (08:01)
[2021-09-13] MEDS: FERROUS SULFATE 300 MG/5 ML UDCUP PO SCH ×3 (08:01→20:24)
[2021-09-13] MEDS: MAGNESIUM OXIDE 400 MG TABLET PO SCH ×2 (08:01→20:24)
[2021-09-13] MEDS: ASCORBIC ACID 500 MG TABLET PO SCH ×2 (08:02→20:24)
[2021-09-13] MEDS: carvediloL 3.125 MG TABLET PO SCH ×2 (08:03→20:24)
[2021-09-13] MEDS: FUROSEMIDE 20 MG TABLET PO SCH ×2 (08:03→20:24)
[2021-09-13] MEDS: DILTIAZEM 30 MG TABLET PO SCH ×2 (08:03→20:24)
[2021-09-13] MEDS: SPIRONOLACTONE 25 MG TABLET PO SCH (08:04)
[2021-09-13 10:43] LABS: Amorphous Crystals,Urine Occasional /HPF (Few); Bacteria,Urine Occasional /HPF (Few); Bilirubin,Urine Negative (Negative); Blood, Urine Negative (Negative); Glucose,Urine (UA) Negative (Negative); Hyaline Casts,Urine 30 /LPF (0-3); Ketones,Urine 5 mg/dL (Negative); Mucus,Urine Many /LPF (Occasional); Nitrite,Urine Negative (Negative); Protein,Urine Negative; RBC,Urine 4 /HPF (0-4); Squamous Epithelial Cell,Urine Occasional /HPF (0-10); Urine Appearance CLOUDY (Clear); Urine Color Amber (Yellow); Urine Urobilinogen < 2.0 EU/DL (0.2-1.0)
[2021-09-14] MEDS: PANTOPRAZOLE 40 MG TABLET PO SCH (05:49)
[2021-09-14] MEDS: LEVOTHYROXINE 100 MCG TABLET PO SCH (05:49)
[2021-09-14] MEDS: MULTIVITAMIN (CENTRUM) TABLET PO SCH (09:21)
[2021-09-14] MEDS: CHOLECALCIFEROL 1,000 UNIT TABLET PO SCH (09:21)
[2021-09-14] MEDS: DILTIAZEM 30 MG TABLET PO SCH ×2 (09:21→20:17)
[2021-09-14] MEDS: carvediloL 3.125 MG TABLET PO SCH ×2 (09:21→20:17)
[2021-09-14] MEDS: FUROSEMIDE 20 MG TABLET PO SCH ×2 (09:21→20:16)
[2021-09-14] MEDS: MAGNESIUM OXIDE 400 MG TABLET PO SCH ×2 (09:21→20:17)
[2021-09-14] MEDS: ASCORBIC ACID 500 MG TABLET PO SCH ×2 (09:21→20:17)
[2021-09-14] MEDS: LACTULOSE 20 GM/30 ML UDCUP PO SCH ×2 (09:21→20:17)
[2021-09-14] MEDS: SPIRONOLACTONE 25 MG TABLET PO SCH (09:21)
[2021-09-14] MEDS: POTASSIUM CHLORIDE 10 MEQ TABLET PO SCH ×2 (09:22→20:17)
[2021-09-14] MEDS: FERROUS SULFATE 300 MG/5 ML UDCUP PO SCH ×3 (09:22→20:17)
[2021-09-14 09:45] LABS: Basophils # 0.1 10*3/uL (0.0-0.2); Basophils % 1.1 % (0.0-0.8); Eosinophils # 0.2 10*3/uL (0.0-0.87); Eosinophils % 5.1 % (0.00-10.9); Hematocrit 32.8 VOL% (35.7-47.0); Hemoglobin 10.3 GM/DL (12.0-16.0); Immature Granulocytes % 0.2 %; Immature Granulocytes Absolute 0.01 #; Lymphocytes # 1.1 10*3/uL (1.4-4.0); Lymphocytes % 25.5 % (21.3-54.2); Mean Corpuscular HGB Conc 31.4 GM/DL (32-36); Mean Corpuscular Volume 83.5 FL (87-102); Mean Platelet Volume 11.9 FL (9.6-12.0); Monocytes % 7.6 % (1.7-12.7); Neutrophils % 60.5 % (38.7-73.9); Platelet Count 77 T/CUMM (130-400); Red Blood Count 3.93 MC/CUMM (3.8-5.5); Red Cell Distribution Width 20.6 % (9.3-17.3); White Blood Count 4.5 T/CUMM (4-12)
[2021-09-14 10:20] LABS: Albumin 2.3 G/DL (3.4-5.0); Bilirubin,Total 1.9 MG/DL (0.20-1.00); Calcium 8.3 MG/DL (8.5-10.1); Osmolality,Calculated 279.5 MOS/KG (273-304); Potassium 3.9 MMOL/L (3.5-5.1); Total Protein 5.2 G/DL (6.4-8.2)
[2021-09-14] MEDS: ONDANSETRON 4 MG/2 ML VIAL IV PRN (11:03)
[2021-09-14] MEDS ORDERED: MAGNESIUM SULF RIDER 2 GM/50 ML PREMIX IV ONE (11:25)
[2021-09-15] MEDS: ONDANSETRON 4 MG/2 ML VIAL IV PRN (00:43)
[2021-09-15] MEDS: PANTOPRAZOLE 40 MG TABLET PO SCH (05:42)
[2021-09-15] MEDS: LEVOTHYROXINE 100 MCG TABLET PO SCH (05:42)
[2021-09-15 08:22] LABS: Basophils % 0.8 % (0.0-0.8); Eosinophils # 0.3 10*3/uL (0.0-0.87); Lymphocytes # 1.1 10*3/uL (1.4-4.0); Lymphocytes % 28.4 % (21.3-54.2); Mean Corpuscular Volume 83.1 FL (87-102); Mean Platelet Volume 10.9 FL (9.6-12.0); Monocytes % 9.4 % (1.7-12.7); Neutrophils % 53.1 % (38.7-73.9); Platelet Count 76 T/CUMM (130-400); Red Blood Count 3.49 MC/CUMM (3.8-5.5); White Blood Count 3.7 T/CUMM (4-12)
[2021-09-15 08:42] LABS: Calcium 8.1 MG/DL (8.5-10.1); Osmolality,Calculated 279.3 MOS/KG (273-304); Potassium 4.1 MMOL/L (3.5-5.1)
[2021-09-15 08:46] LABS: Albumin 2.2 G/DL (3.4-5.0); Bilirubin,Total 1.1 MG/DL (0.20-1.00); Calcium 8.4 MG/DL (8.5-10.1); Osmolality,Calculated 277.4 MOS/KG (273-304); Potassium 4.1 MMOL/L (3.5-5.1); Total Protein 4.8 G/DL (6.4-8.2)
[2021-09-15 08:57] LABS: Atypical Lymphocytes Few; Eosinophils 8 % (0-10); Hypochromasia 1+; Lymphocytes 26 % (20-55); Microcytosis 1+; Segmented Neutrophils 57 % (50-85)
[2021-09-15 08:58] LABS: Ovalocytes Slight; Platelet Estimate Decreased
[2021-09-15] MEDS: SPIRONOLACTONE 25 MG TABLET PO SCH (09:37)
[2021-09-15] MEDS: DILTIAZEM 30 MG TABLET PO SCH (09:38)
[2021-09-15] MEDS: CHOLECALCIFEROL 1,000 UNIT TABLET PO SCH (09:38)
[2021-09-15] MEDS: FUROSEMIDE 20 MG TABLET PO SCH (09:38)
[2021-09-15] MEDS: FERROUS SULFATE 300 MG/5 ML UDCUP PO SCH (09:38)
[2021-09-15] MEDS: ASCORBIC ACID 500 MG TABLET PO SCH (09:38)
[2021-09-15] MEDS: LACTULOSE 20 GM/30 ML UDCUP PO SCH (09:38)
[2021-09-15] MEDS: MAGNESIUM OXIDE 400 MG TABLET PO SCH (09:38)
[2021-09-15] MEDS: POTASSIUM CHLORIDE 10 MEQ TABLET PO SCH (09:38)
[2021-09-15] MEDS: carvediloL 3.125 MG TABLET PO SCH (09:38)
[2021-09-15] MEDS: MULTIVITAMIN (CENTRUM) TABLET PO SCH (09:38)
[2021-09-15 10:13] VITALS: BP 94/58
== END 2021-09-15 11:02 | disposition home or self-care (01) | DRG 441 ==
LOC: EDBD → EDUNIT# → N.ED 14:41 → N.EDINP 17:05 → SUATTDRO 17:05 → N.CC 17:41 → N.TELES 09-08 14:30
PROVIDERS: ADMIT Family Medicine; ATTEND Internal Medicine

== ENCOUNTER 2021-09-30 19:22 | Inpatient (IN) ==
[2021-09-30] MEDS ORDERED: SODIUM CHLORIDE 0.9% 1,000 ML IV STA (19:57)
[2021-09-30 20:14] LABS: Basophils % 0.7 % (0.0-0.8); Eosinophils # 0.2 10*3/uL (0.0-0.87); Eosinophils % 3.5 % (0.00-10.9); Hematocrit 43.2 VOL% (35.7-47.0); Hemoglobin 13.4 GM/DL (12.0-16.0); Immature Granulocytes % 0.5 %; Immature Granulocytes Absolute 0.03 #; Lymphocytes # 1.1 10*3/uL (1.4-4.0); Lymphocytes % 19.7 % (21.3-54.2); Mean Corpuscular Volume 85.4 FL (87-102); Monocytes % 7.8 % (1.7-12.7); Neutrophils % 67.8 % (38.7-73.9); Platelet Count 108 T/CUMM (130-400); Red Blood Count 5.06 MC/CUMM (3.8-5.5); Red Cell Distribution Width 23.9 % (9.3-17.3); White Blood Count 5.8 T/CUMM (4-12)
[2021-09-30 20:25] LABS: INR 1.3; PT Patient Result 14.7 SECS (10.5-12.0); Partial Thromboplastin Time 32.2 SECS (23.8-32.1)
[2021-09-30 20:29] LABS: Lactic Acid 1.8 MMOL/L (0.4-2.0)
[2021-09-30 20:31] LABS: ABG Base Excess -1.3 MMOL/L (-2.5-2.5); ABG HCO3 23.3 MMOL/L (20-26); ABG Oxygen Saturation 99.9 % (95-100); ABG PCO2 26.6 MM HG (35-48); ABG PH 7.494 (7.35-7.45); ABG TCO2 17.4 MMOL/L (23-27)
[2021-09-30 20:46] LABS: Albumin 2.5 G/DL (3.4-5.0); Calcium 8.6 MG/DL (8.5-10.1); Osmolality,Calculated 294.3 MOS/KG (273-304); Potassium 4.3 MMOL/L (3.5-5.1); Total Protein 5.5 G/DL (6.4-8.2)
[2021-09-30] MEDS ORDERED: DILTIAZEM 50 MG/10 ML VIAL IV STA (20:49)
[2021-09-30 21:18] LABS: Barbiturates Screen,Urine Negative (Negative); Benzodiazepines Screen,Urine Negative (Negative); Cannabinoid Screen,Urine Negative (Negative); Opiate Screen,Urine Negative (Negative); Phencyclidine Screen,Urine Negative (Negative)
[2021-09-30 21:57] LABS: Bilirubin,Urine Negative (Negative); Blood, Urine Negative (Negative); Glucose,Urine (UA) Negative (Negative); Ketones,Urine Negative (Negative); Nitrite,Urine Negative (Negative); Protein,Urine Negative; Urine Appearance CLEAR (Clear); Urine Color Straw (Yellow); Urine Specific Gravity 1.005 (1.001-1.035); Urine Urobilinogen < 2.0 EU/DL (<2.0)
[2021-09-30] MEDS ORDERED: ONDANSETRON 4 MG/2 ML VIAL IV PRN (22:45)
[2021-09-30] MEDS ORDERED: ALBUTEROL 2.5 MG/3 ML NEB RESP TX PRN ×2 (22:45→23:54)
[2021-09-30 23:45] LABS: Burr Cells 4+; Reactive Lymphocytes 1+
[2021-09-30] MEDS ORDERED: SODIUM CHLORIDE 0.45% 1,000 ML IV SCH (23:45)
[2021-09-30 23:46] LABS: Ovalocytes 2+; Platelet Estimate Adequate
[2021-10-01] MEDS ORDERED: DEXTROSE 5% 1,000 ML IV SCH (00:30)
[2021-10-01] MEDS: LACTULOSE 20 GM/30 ML UDCUP PO SCH ×7 (00:55→21:17)
[2021-10-01] MEDS ORDERED: METOPROLOL TARTRATE 5 MG/5 ML VIAL IV ONE ×4 (01:11→13:40)
[2021-10-01] MEDS: PANTOPRAZOLE 40 MG VIAL IV SCH ×2 (01:11→21:09)
[2021-10-01] MEDS ORDERED: LACTULOSE 320 GM/480 ML BOTTLE RECTAL SCH (02:00)
[2021-10-01 04:59] LABS: Basophils % 0.8 % (0.0-0.8); Eosinophils # 0.2 10*3/uL (0.0-0.87); Eosinophils % 4.5 % (0.00-10.9); Hematocrit 37.8 VOL% (35.7-47.0); Hemoglobin 11.6 GM/DL (12.0-16.0); Immature Granulocytes % 0.2 %; Immature Granulocytes Absolute 0.01 #; Lymphocytes # 1.2 10*3/uL (1.4-4.0); Lymphocytes % 23.5 % (21.3-54.2); Mean Corpuscular HGB Conc 30.7 GM/DL (32-36); Mean Corpuscular Volume 86.5 FL (87-102); Mean Platelet Volume 11.5 FL (9.6-12.0); Monocytes % 9.1 % (1.7-12.7); Neutrophils % 61.9 % (38.7-73.9); Red Blood Count 4.37 MC/CUMM (3.8-5.5); Red Cell Distribution Width 23.7 % (9.3-17.3); White Blood Count 5.1 T/CUMM (4-12)
[2021-10-01 05:04] LABS: INR 1.4; PT Patient Result 15.5 SECS (10.5-12.0)
[2021-10-01 05:06] LABS: Platelet Count 94 T/CUMM (130-400)
[2021-10-01 05:20] LABS: Albumin 2.1 G/DL (3.4-5.0); Bilirubin,Total 1.9 MG/DL (0.20-1.00); Calcium 8.3 MG/DL (8.5-10.1); Osmolality,Calculated 292.4 MOS/KG (273-304); Potassium 3.6 MMOL/L (3.5-5.1); Total Protein 4.9 G/DL (6.4-8.2)
[2021-10-01 05:23] LABS: Platelet Estimate Decreased
[2021-10-01] MEDS: LEVOTHYROXINE 100 MCG TABLET PO SCH (05:53)
[2021-10-01] MEDS ORDERED: HEPARIN 5,000 UNIT/1 ML VIAL SUBCUT SCH (06:00)
[2021-10-01] MEDS: POTASSIUM CHLORIDE 20 MEQ TABLET PO PRN ×2 (08:19→09:48)
[2021-10-01] MEDS: MULTIVITAMIN (CENTRUM) TABLET PO SCH (08:49)
[2021-10-01] MEDS: FERROUS SULFATE 325 MG TABLET PO SCH ×3 (08:49→21:09)
[2021-10-01] MEDS: carvediloL 3.125 MG TABLET PO SCH ×2 (08:49→21:08)
[2021-10-01] MEDS: MAGNESIUM OXIDE 400 MG TABLET PO SCH ×2 (08:49→21:08)
[2021-10-01] MEDS: DILTIAZEM 30 MG TABLET PO SCH ×2 (08:49→21:08)
[2021-10-01] MEDS: ASCORBIC ACID 500 MG TABLET PO SCH ×2 (08:49→21:08)
[2021-10-01] MEDS ORDERED: FUROSEMIDE 20 MG TABLET PO SCH (09:00)
[2021-10-01] MEDS ORDERED: SODIUM CHLORIDE 0.9% 1,000 ML IV ONE ×2 (15:41→18:21)
[2021-10-01] MEDS ORDERED: DILTIAZEM 50 MG/10 ML VIAL IV ONE (16:42)
[2021-10-01] MEDS: DILTIAZEM INJ 100 MG in SODIUM CHLORIDE 0.9% 100 ML IV SCH (17:48)
[2021-10-02] MEDS: DILTIAZEM INJ 100 MG in SODIUM CHLORIDE 0.9% 100 ML IV SCH ×3 (00:31→19:11)
[2021-10-02] MEDS: LACTULOSE 20 GM/30 ML UDCUP PO SCH ×6 (02:22→20:56)
[2021-10-02] MEDS: LEVOTHYROXINE 100 MCG TABLET PO SCH (06:18)
[2021-10-02 06:44] LABS: Basophils # 0.1 10*3/uL (0.0-0.2); Basophils % 0.3 % (0.0-0.8); Eosinophils % 0.2 % (0.00-10.9); Hematocrit 38.7 VOL% (35.7-47.0); Immature Granulocytes % 0.5 %; Immature Granulocytes Absolute 0.08 #; Lymphocytes % 6.2 % (21.3-54.2); Mean Corpuscular Volume 86.4 FL (87-102); Mean Platelet Volume 11.8 FL (9.6-12.0); Monocytes % 5.7 % (1.7-12.7); Neutrophils % 87.1 % (38.7-73.9); Platelet Count 113 T/CUMM (130-400); Red Blood Count 4.48 MC/CUMM (3.8-5.5); Red Cell Distribution Width 23.5 % (9.3-17.3); White Blood Count 15.5 T/CUMM (4-12)
[2021-10-02 06:51] LABS: INR 1.3; PT Patient Result 14.7 SECS (10.5-12.0)
[2021-10-02 07:05] LABS: Albumin 2.3 G/DL (3.4-5.0); Bilirubin,Total 4.4 MG/DL (0.20-1.00); Calcium 8.7 MG/DL (8.5-10.1); Osmolality,Calculated 299.1 MOS/KG (273-304); Potassium 3.7 MMOL/L (3.5-5.1); Total Protein 5.4 G/DL (6.4-8.2)
[2021-10-02 07:07] LABS: Platelet Estimate Decreased
[2021-10-02 08:01] LABS: Allen Test Positive; Pt O2 Delivery Device Room Air
[2021-10-02 08:02] LABS: ABG Base Excess -8.7 MMOL/L (-2.5-2.5); ABG HCO3 17.1 MMOL/L (20-26); ABG Oxygen Saturation 73.5 % (95-100); ABG PCO2 29.7 MM HG (35-48); ABG PH 7.338 (7.35-7.45); ABG PO2 46.6 MM HG (80-95); ABG TCO2 14.2 MMOL/L (23-27)
[2021-10-02 08:50] LABS: ABG Base Excess -8.2 MMOL/L (-2.5-2.5); ABG HCO3 17.8 MMOL/L (20-26); ABG Oxygen Saturation 96.4 % (95-100); ABG PCO2 25.2 MM HG (35-48); ABG PH 7.391 (7.35-7.45); ABG PO2 87.8 MM HG (80-95); ABG TCO2 13.6 MMOL/L (23-27); Allen Test Positive; Pt O2 Delivery Device Room Air
[2021-10-02] MEDS ORDERED: LACTATED RINGERS 1,000 ML IV ONE (08:52)
[2021-10-02 09:12] LABS: Calcium 8.5 MG/DL (8.5-10.1); Osmolality,Calculated 299.1 MOS/KG (273-304); Potassium 3.9 MMOL/L (3.5-5.1)
[2021-10-02] MEDS: FERROUS SULFATE 325 MG TABLET PO SCH ×3 (09:20→20:56)
[2021-10-02] MEDS: DILTIAZEM 30 MG TABLET PO SCH (09:20)
[2021-10-02] MEDS: MULTIVITAMIN (CENTRUM) TABLET PO SCH (09:20)
[2021-10-02] MEDS: carvediloL 3.125 MG TABLET PO SCH ×2 (09:20→20:56)
[2021-10-02] MEDS: MAGNESIUM OXIDE 400 MG TABLET PO SCH ×2 (09:20→20:56)
[2021-10-02] MEDS: ASCORBIC ACID 500 MG TABLET PO SCH ×2 (09:20→20:55)
[2021-10-02] MEDS ORDERED: SODIUM BICARBONATE 50 MEQ/50 ML VIAL IV ONE (10:00)
[2021-10-02] MEDS ORDERED: DEXTROSE 5% NACL 0.45% 1,000 ML IV SCH (12:30)
[2021-10-02] MEDS: INSULIN LISPRO 100 UNIT/ML SUBCUT SCH (17:40)
[2021-10-02] MEDS ORDERED: SODIUM BICARB INJ 100 MEQ in DEXTROSE 5% 1,000 ML IV SCH (20:00)
[2021-10-02] MEDS: DILTIAZEM 60 MG TABLET PO SCH (20:55)
[2021-10-02] MEDS: PANTOPRAZOLE 40 MG VIAL IV SCH (20:55)
[2021-10-02] MEDS: SODIUM BICARB INJ 100 MEQ in DEXTROSE 5% 1,000 ML IV SCH (23:14)
[2021-10-03] MEDS: INSULIN LISPRO 100 UNIT/ML SUBCUT SCH ×4 (01:20→17:46)
[2021-10-03] MEDS: traMADol 50 MG TABLET PO PRN ×2 (01:21→18:05)
[2021-10-03] MEDS: LACTULOSE 20 GM/30 ML UDCUP PO SCH ×6 (02:39→21:45)
[2021-10-03 03:28] LABS: ABG Base Excess -4.3 MMOL/L (-2.5-2.5); ABG HCO3 16.3 MMOL/L (20-26); ABG PCO2 21.1 MM HG (35-48); ABG PH 7.506 (7.35-7.45); ABG PO2 152.9 MM HG (80-95)
[2021-10-03 05:42] LABS: INR 1.6; PT Patient Result 17.7 SECS (10.5-12.0)
[2021-10-03 06:04] LABS: Bilirubin,Total 1.4 MG/DL (0.20-1.00); Calcium 8.4 MG/DL (8.5-10.1); Osmolality,Calculated 294.7 MOS/KG (273-304); Potassium 3.3 MMOL/L (3.5-5.1); Total Protein 4.6 G/DL (6.4-8.2)
[2021-10-03] MEDS: LEVOTHYROXINE 100 MCG TABLET PO SCH (06:27)
[2021-10-03] MEDS: POTASSIUM CHLORIDE 20 MEQ TABLET PO PRN (06:27)
[2021-10-03] MEDS: SODIUM BICARB INJ 100 MEQ in DEXTROSE 5% 1,000 ML IV SCH ×3 (07:11→21:20)
[2021-10-03 07:34] LABS: Basophils % 0.5 % (0.0-0.8); Eosinophils # 0.2 10*3/uL (0.0-0.87); Eosinophils % 2.7 % (0.00-10.9); Immature Granulocytes % 0.7 %; Immature Granulocytes Absolute 0.06 #; Mean Corpuscular HGB Conc 31.3 GM/DL (32-36); Mean Corpuscular Volume 85.7 FL (87-102); Mean Platelet Volume 11.7 FL (9.6-12.0); Monocytes % 8.1 % (1.7-12.7); Red Cell Distribution Width 23.2 % (9.3-17.3); White Blood Count 8.6 T/CUMM (4-12)
[2021-10-03 07:35] LABS: Hemoglobin 9.4 GM/DL (12.0-16.0); Platelet Count 64 T/CUMM (130-400)
[2021-10-03 08:00] LABS: Hypochromasia 1+; Microcytosis 1+; Ovalocytes Slight; Polychromasia Slight
[2021-10-03 08:01] LABS: Platelet Estimate Decreased
[2021-10-03] MEDS: ASCORBIC ACID 500 MG TABLET PO SCH ×2 (08:28→21:45)
[2021-10-03] MEDS: MAGNESIUM OXIDE 400 MG TABLET PO SCH (08:28)
[2021-10-03] MEDS: MULTIVITAMIN (CENTRUM) TABLET PO SCH (08:29)
[2021-10-03] MEDS: FERROUS SULFATE 325 MG TABLET PO SCH ×3 (08:29→21:45)
[2021-10-03] MEDS: DILTIAZEM 60 MG TABLET PO SCH ×3 (08:29→21:45)
[2021-10-03] MEDS: carvediloL 3.125 MG TABLET PO SCH ×2 (08:29→21:45)
[2021-10-03] MEDS: PANTOPRAZOLE 40 MG VIAL IV SCH (21:50)
[2021-10-04] MEDS: MAGNESIUM OXIDE 400 MG TABLET PO SCH ×3 (01:10→20:30)
[2021-10-04] MEDS: INSULIN LISPRO 100 UNIT/ML SUBCUT SCH ×3 (01:14→18:10)
[2021-10-04] MEDS: LACTULOSE 20 GM/30 ML UDCUP PO SCH ×6 (02:27→20:30)
[2021-10-04] MEDS: SODIUM BICARB INJ 100 MEQ in DEXTROSE 5% 1,000 ML IV SCH ×3 (04:40→19:20)
[2021-10-04 05:36] LABS: Basophils % 0.4 % (0.0-0.8); Eosinophils # 0.4 10*3/uL (0.0-0.87); Eosinophils % 7.2 % (0.00-10.9); Hematocrit 30.7 VOL% (35.7-47.0); Hemoglobin 9.6 GM/DL (12.0-16.0); Immature Granulocytes % 0.5 %; Immature Granulocytes Absolute 0.03 #; Lymphocytes % 17.9 % (21.3-54.2); Mean Corpuscular HGB Conc 31.3 GM/DL (32-36); Mean Corpuscular Volume 86.7 FL (87-102); Mean Platelet Volume 11.3 FL (9.6-12.0); Monocytes % 7.7 % (1.7-12.7); Neutrophils % 66.3 % (38.7-73.9); Platelet Count 51 T/CUMM (130-400); Red Blood Count 3.54 MC/CUMM (3.8-5.5); Red Cell Distribution Width 22.9 % (9.3-17.3); White Blood Count 5.7 T/CUMM (4-12)
[2021-10-04 05:44] LABS: Calcium 7.9 MG/DL (8.5-10.1); Osmolality,Calculated 280.5 MOS/KG (273-304); Potassium 2.8 MMOL/L (3.5-5.1)
[2021-10-04] MEDS: LEVOTHYROXINE 100 MCG TABLET PO SCH (05:58)
[2021-10-04] MEDS: POTASSIUM CHLORIDE 20 MEQ TABLET PO PRN (05:59)
[2021-10-04 06:05] LABS: Hypochromasia Slight; Platelet Estimate Decreased
[2021-10-04] MEDS: MULTIVITAMIN (CENTRUM) TABLET PO SCH (09:37)
[2021-10-04] MEDS: DILTIAZEM 60 MG TABLET PO SCH ×3 (09:37→20:30)
[2021-10-04] MEDS: ASCORBIC ACID 500 MG TABLET PO SCH ×2 (09:37→20:30)
[2021-10-04] MEDS: FERROUS SULFATE 325 MG TABLET PO SCH ×3 (09:37→20:30)
[2021-10-04] MEDS: carvediloL 3.125 MG TABLET PO SCH ×2 (09:37→20:30)
[2021-10-04] MEDS: traMADol 50 MG TABLET PO PRN (20:29)
[2021-10-04] MEDS: PANTOPRAZOLE 40 MG VIAL IV SCH (20:31)
[2021-10-05] MEDS: INSULIN LISPRO 100 UNIT/ML SUBCUT SCH ×5 (01:29→23:54)
[2021-10-05] MEDS: LACTULOSE 20 GM/30 ML UDCUP PO SCH ×5 (01:30→20:47)
[2021-10-05] MEDS: SODIUM BICARB INJ 100 MEQ in DEXTROSE 5% 1,000 ML IV SCH ×2 (03:47→14:44)
[2021-10-05 06:02] LABS: Basophils % 0.4 % (0.0-0.8); Eosinophils # 0.3 10*3/uL (0.0-0.87); Eosinophils % 7.2 % (0.00-10.9); Hematocrit 28.6 VOL% (35.7-47.0); Hemoglobin 9.2 GM/DL (12.0-16.0); Immature Granulocytes Absolute 0.14 #; Lymphocytes % 22.2 % (21.3-54.2); Mean Corpuscular HGB Conc 32.2 GM/DL (32-36); Mean Corpuscular Volume 84.6 FL (87-102); Neutrophils % 58.2 % (38.7-73.9); Platelet Count 50 T/CUMM (130-400); Red Blood Count 3.38 MC/CUMM (3.8-5.5); Red Cell Distribution Width 22.5 % (9.3-17.3); White Blood Count 4.7 T/CUMM (4-12)
[2021-10-05 06:26] LABS: Albumin 1.9 G/DL (3.4-5.0); Bilirubin,Total 2.7 MG/DL (0.20-1.00); Calcium 7.4 MG/DL (8.5-10.1); Potassium 2.8 MMOL/L (3.5-5.1); Total Protein 4.5 G/DL (6.4-8.2)
[2021-10-05] MEDS: LEVOTHYROXINE 100 MCG TABLET PO SCH (06:26)
[2021-10-05 06:49] LABS: Eosinophils 5 % (0-10); Lymphocytes 15 % (20-55); Platelet Estimate Decreased; Segmented Neutrophils 75 % (50-85); Total Cells Counted 100
[2021-10-05] MEDS: POTASSIUM CHLORIDE 20 MEQ TABLET PO PRN ×2 (09:30→15:55)
[2021-10-05] MEDS: carvediloL 3.125 MG TABLET PO SCH ×2 (09:30→20:46)
[2021-10-05] MEDS: MULTIVITAMIN (CENTRUM) TABLET PO SCH (09:30)
[2021-10-05] MEDS: ASCORBIC ACID 500 MG TABLET PO SCH ×2 (09:30→20:46)
[2021-10-05] MEDS: DILTIAZEM 60 MG TABLET PO SCH ×3 (09:30→20:46)
[2021-10-05] MEDS: MAGNESIUM OXIDE 400 MG TABLET PO SCH ×2 (09:30→20:46)
[2021-10-05] MEDS: FERROUS SULFATE 325 MG TABLET PO SCH ×3 (09:31→20:46)
[2021-10-05] MEDS ORDERED: FUROSEMIDE 20 MG/2 ML VIAL IV ONE (11:32)
[2021-10-05] MEDS ORDERED: POTASSIUM CHLORIDE 20 MEQ PACK PO ONE (11:36)
[2021-10-05] MEDS: FUROSEMIDE 20 MG/2 ML VIAL IV SCH (15:59)
[2021-10-05] MEDS: PANTOPRAZOLE 40 MG VIAL IV SCH (20:46)
[2021-10-06] MEDS: LEVOTHYROXINE 100 MCG TABLET PO SCH (05:55)
[2021-10-06 05:59] LABS: Basophils % 0.6 % (0.0-0.8); Eosinophils # 0.3 10*3/uL (0.0-0.87); Eosinophils % 7.6 % (0.00-10.9); Hematocrit 31.2 VOL% (35.7-47.0); Hemoglobin 9.7 GM/DL (12.0-16.0); Immature Granulocytes % 0.6 %; Immature Granulocytes Absolute 0.02 #; Lymphocytes # 0.8 10*3/uL (1.4-4.0); Lymphocytes % 22.3 % (21.3-54.2); Mean Corpuscular HGB Conc 31.1 GM/DL (32-36); Monocytes % 8.5 % (1.7-12.7); Neutrophils % 60.4 % (38.7-73.9); Platelet Count 56 T/CUMM (130-400); Red Blood Count 3.63 MC/CUMM (3.8-5.5); Red Cell Distribution Width 23.1 % (9.3-17.3); White Blood Count 3.6 T/CUMM (4-12)
[2021-10-06 06:18] LABS: Bilirubin,Total 1.3 MG/DL (0.20-1.00); Calcium 7.9 MG/DL (8.5-10.1); Osmolality,Calculated 270.1 MOS/KG (273-304); Potassium 3.6 MMOL/L (3.5-5.1); Total Protein 4.8 G/DL (6.4-8.2)
[2021-10-06] MEDS: INSULIN LISPRO 100 UNIT/ML SUBCUT SCH ×3 (06:21→18:14)
[2021-10-06 06:25] LABS: Platelet Estimate Decreased
[2021-10-06 06:26] LABS: Anisocytosis 2+; Basophilic Stippling Slight; Macrocytosis 1+
[2021-10-06] MEDS: DILTIAZEM 60 MG TABLET PO SCH (08:02)
[2021-10-06] MEDS: FERROUS SULFATE 325 MG TABLET PO SCH ×3 (08:03→22:06)
[2021-10-06] MEDS: POTASSIUM CHLORIDE 20 MEQ TABLET PO PRN (08:03)
[2021-10-06] MEDS: ASCORBIC ACID 500 MG TABLET PO SCH ×2 (08:03→22:06)
[2021-10-06] MEDS: carvediloL 3.125 MG TABLET PO SCH ×2 (08:03→22:06)
[2021-10-06] MEDS: LACTULOSE 20 GM/30 ML UDCUP PO SCH ×3 (08:03→22:07)
[2021-10-06] MEDS: MAGNESIUM OXIDE 400 MG TABLET PO SCH ×2 (08:03→22:06)
[2021-10-06] MEDS: MULTIVITAMIN (CENTRUM) TABLET PO SCH (08:03)
[2021-10-06] MEDS: FUROSEMIDE 20 MG/2 ML VIAL IV SCH ×2 (08:06→15:46)
[2021-10-06 12:51] LABS: Amorphous Crystals,Urine Occasional /HPF (Few); Bilirubin,Urine Negative (Negative); Blood, Urine Large mg/dL (Negative); Glucose,Urine (UA) Negative (Negative); Ketones,Urine Negative (Negative); Nitrite,Urine Negative (Negative); Protein,Urine 100 MG/DL; RBC,Urine 5 /HPF (0-4); Urine Appearance CLOUDY (Clear); Urine Color Amber (Yellow); Urine Specific Gravity 1.006 (1.001-1.035); Urine Urobilinogen < 2.0 EU/DL (<2.0)
[2021-10-06] MEDS: DILTIAZEM 90 MG TABLET PO SCH ×2 (15:43→22:06)
[2021-10-06] MEDS: PANTOPRAZOLE 40 MG VIAL IV SCH (22:06)
[2021-10-07] MEDS: INSULIN LISPRO 100 UNIT/ML SUBCUT SCH ×4 (01:04→18:28)
[2021-10-07 05:42] LABS: Basophils % 0.3 % (0.0-0.8); Eosinophils # 0.2 10*3/uL (0.0-0.87); Eosinophils % 5.4 % (0.00-10.9); Hematocrit 30.6 VOL% (35.7-47.0); Hemoglobin 9.6 GM/DL (12.0-16.0); Immature Granulocytes % 0.3 %; Immature Granulocytes Absolute 0.01 #; Lymphocytes # 0.9 10*3/uL (1.4-4.0); Lymphocytes % 23.4 % (21.3-54.2); Mean Corpuscular HGB Conc 31.4 GM/DL (32-36); Mean Corpuscular Volume 86.9 FL (87-102); Monocytes % 8.2 % (1.7-12.7); Neutrophils % 62.4 % (38.7-73.9); Platelet Count 59 T/CUMM (130-400); Red Blood Count 3.52 MC/CUMM (3.8-5.5); Red Cell Distribution Width 23.6 % (9.3-17.3); White Blood Count 3.7 T/CUMM (4-12)
[2021-10-07 06:01] LABS: Albumin 1.8 G/DL (3.4-5.0); Osmolality,Calculated 280.3 MOS/KG (273-304); Potassium 3.4 MMOL/L (3.5-5.1); Total Protein 4.6 G/DL (6.4-8.2)
[2021-10-07] MEDS: LEVOTHYROXINE 100 MCG TABLET PO SCH (06:26)
[2021-10-07 06:29] LABS: Platelet Estimate Decreased
[2021-10-07 06:30] LABS: Anisocytosis 2+; Burr Cells Few; Hypochromasia Slight; Macrocytosis Slight; Tear Drop Cells Few
[2021-10-07] MEDS: DILTIAZEM 90 MG TABLET PO SCH ×3 (08:07→21:40)
[2021-10-07] MEDS: MAGNESIUM OXIDE 400 MG TABLET PO SCH ×2 (08:07→21:40)
[2021-10-07] MEDS: ASCORBIC ACID 500 MG TABLET PO SCH ×2 (08:07→21:37)
[2021-10-07] MEDS: MULTIVITAMIN (CENTRUM) TABLET PO SCH (08:07)
[2021-10-07] MEDS: FERROUS SULFATE 325 MG TABLET PO SCH ×3 (08:08→21:38)
[2021-10-07] MEDS: POTASSIUM CHLORIDE 20 MEQ TABLET PO PRN (08:08)
[2021-10-07] MEDS: LACTULOSE 20 GM/30 ML UDCUP PO SCH ×5 (08:08→21:55)
[2021-10-07] MEDS: carvediloL 3.125 MG TABLET PO SCH ×2 (08:08→21:40)
[2021-10-07] MEDS: FUROSEMIDE 20 MG/2 ML VIAL IV SCH ×2 (08:11→15:20)
[2021-10-07] MEDS: cefTRIAXone 1,000 MG in SODIUM CHLORIDE 0.9% 100 ML IV SCH (11:38)
[2021-10-07] MEDS: PANTOPRAZOLE 40 MG VIAL IV SCH (21:40)
[2021-10-08] MEDS: INSULIN LISPRO 100 UNIT/ML SUBCUT SCH ×3 (01:23→11:36)
[2021-10-08 05:40] LABS: Basophils % 0.7 % (0.0-0.8); Eosinophils # 0.3 10*3/uL (0.0-0.87); Eosinophils % 6.9 % (0.00-10.9); Hemoglobin 10.2 GM/DL (12.0-16.0); Immature Granulocytes % 0.4 %; Immature Granulocytes Absolute 0.02 #; Mean Corpuscular HGB Conc 30.9 GM/DL (32-36); Mean Corpuscular Volume 86.8 FL (87-102); Mean Platelet Volume 11.3 FL (9.6-12.0); Monocytes % 9.8 % (1.7-12.7); Neutrophils % 60.2 % (38.7-73.9); Platelet Count 61 T/CUMM (130-400); Red Cell Distribution Width 23.9 % (9.3-17.3); White Blood Count 4.5 T/CUMM (4-12)
[2021-10-08 06:00] LABS: Eosinophils 6 % (0-10); Hypochromasia 1+; Lymphocytes 12 % (20-55); Segmented Neutrophils 72 % (50-85); Total Cells Counted 100
[2021-10-08 06:01] LABS: Microcytosis 1+; Ovalocytes Few; Platelet Estimate Decreased
[2021-10-08 06:03] LABS: Albumin 1.9 G/DL (3.4-5.0); Bilirubin,Total 1.4 MG/DL (0.20-1.00); Calcium 8.1 MG/DL (8.5-10.1); Osmolality,Calculated 283.1 MOS/KG (273-304); Potassium 3.2 MMOL/L (3.5-5.1); Total Protein 4.9 G/DL (6.4-8.2)
[2021-10-08] MEDS: POTASSIUM CHLORIDE 20 MEQ TABLET PO PRN ×4 (06:40→13:27)
[2021-10-08] MEDS: LEVOTHYROXINE 100 MCG TABLET PO SCH (06:40)
[2021-10-08] MEDS: MAGNESIUM OXIDE 400 MG TABLET PO SCH (08:57)
[2021-10-08] MEDS: MULTIVITAMIN (CENTRUM) TABLET PO SCH (08:57)
[2021-10-08] MEDS: carvediloL 3.125 MG TABLET PO SCH (08:57)
[2021-10-08] MEDS: FERROUS SULFATE 325 MG TABLET PO SCH (08:57)
[2021-10-08] MEDS: ASCORBIC ACID 500 MG TABLET PO SCH (08:57)
[2021-10-08] MEDS: DILTIAZEM 90 MG TABLET PO SCH (08:57)
[2021-10-08] MEDS: LACTULOSE 20 GM/30 ML UDCUP PO SCH ×2 (08:59→13:27)
[2021-10-08] MEDS: FUROSEMIDE 20 MG/2 ML VIAL IV SCH (09:05)
[2021-10-08] MEDS ORDERED: CIPROFLOXACIN 500 MG TABLET PO ONE (11:49)
[2021-10-08] MEDS: cefTRIAXone 1,000 MG in SODIUM CHLORIDE 0.9% 100 ML IV SCH (12:45)
[2021-10-08 12:50] VITALS: BP 98/65
== END 2021-10-08 14:38 | DRG 442 ==
LOC: EDBD → EDUNIT# → N.ED 19:22 → SUATTDRO 22:41 → N.EDINP 22:41 → N.ICU 23:33 → N.TELES 10-05 01:37
PROVIDERS: ADMIT Family Medicine; ATTEND Internal Medicine

== ENCOUNTER 2021-10-13 17:18 | Inpatient (IN) ==
[2021-10-13 18:13] LABS: Eosinophils # 0.2 10*3/uL (0.0-0.87); Eosinophils % 7.3 % (0.00-10.9); Hematocrit 30.9 VOL% (35.7-47.0); Hemoglobin 9.3 GM/DL (12.0-16.0); Immature Granulocytes % 0.3 %; Immature Granulocytes Absolute 0.01 #; Lymphocytes # 0.8 10*3/uL (1.4-4.0); Lymphocytes % 26.5 % (21.3-54.2); Mean Corpuscular HGB Conc 30.1 GM/DL (32-36); Mean Corpuscular Volume 92.2 FL (87-102); Mean Platelet Volume 11.1 FL (9.6-12.0); Monocytes % 7.9 % (1.7-12.7); Platelet Count 78 T/CUMM (130-400); Red Blood Count 3.35 MC/CUMM (3.8-5.5); Red Cell Distribution Width 24.8 % (9.3-17.3)
[2021-10-13 18:22] LABS: INR 1.2; PT Patient Result 13.1 SECS (10.5-12.0)
[2021-10-13] MEDS ORDERED: FUROSEMIDE 100 MG/10 ML VIAL IV STA (18:28)
[2021-10-13] MEDS ORDERED: fentaNYL 100 MCG/2 ML VIAL IV PRN (18:28)
[2021-10-13 18:32] LABS: Albumin 2.1 G/DL (3.4-5.0); Bilirubin,Direct 0.31 MG/DL (0.0-0.20); Bilirubin,Indirect 0.4 MG/DL (0.0-1.0); Bilirubin,Total 0.7 MG/DL (0.20-1.00); Total Protein 5.1 G/DL (6.4-8.2)
[2021-10-13 18:33] LABS: Alanine Aminotransferase 36 U/L (13-56); Alkaline Phosphatase 148 U/L (45-117); Aspartate Amino Transferase 36 U/L (0-37); Blood Urea Nitrogen 14 MG/DL (7-18); Carbon Dioxide 22 MMOL/L (21-32); Estimated Glom Filtration Rate 55 ML/MIN; Glucose 171 MG/DL (74-106); Osmolality,Calculated 290.8 MOS/KG (273-304); Sodium 144 MMOL/L (136-145); Total Protein 5.1 G/DL (6.4-8.2)
[2021-10-13 19:02] LABS: Anisocytosis Slight; Burr Cells Few; Hypochromia Slight; Macrocytosis Slight; Microcytosis Slight; Platelet Estimate Decreased; Polychromasia Few
[2021-10-13 19:03] LABS: Elliptocytes Few; Poikilocytosis Few
[2021-10-13] MEDS ORDERED: AZITHROMYCIN INJ 500 MG in SODIUM CHLORIDE 0.9% 250 ML IV STA (20:25)
[2021-10-13] MEDS ORDERED: SODIUM CHLORIDE 0.9% 500 ML IV STA (20:25)
[2021-10-13] MEDS ORDERED: cefTRIAXone 1,000 MG in SODIUM CHLORIDE 0.9% 100 ML IV STA (20:25)
[2021-10-13] MEDS ORDERED: GLUCAGON 1 MG VIAL IM PRN (23:43)
[2021-10-13] MEDS ORDERED: hydrALAZINE 20 MG/1 ML VIAL IV PRN (23:43)
[2021-10-13] MEDS ORDERED: NICOTINE 21 MG/24 HR PATCH TRANSDERM PRN (23:43)
[2021-10-13] MEDS ORDERED: DEXTROSE 50% 25 GM/50 ML SYRINGE IV PRN (23:43)
[2021-10-13] MEDS ORDERED: DOCUSATE SODIUM 100 MG CAPSULE PO PRN (23:43)
[2021-10-13] MEDS ORDERED: guaiFENesin/DM ER 600-30 MG TABLET PO PRN (23:43)
[2021-10-13] MEDS ORDERED: diphenhydrAMINE CAP 25 MG CAPSULE PO PRN (23:43)
[2021-10-13] MEDS ORDERED: ACETAMINOPHEN 325 MG TABLET PO PRN (23:43)
[2021-10-13] MEDS ORDERED: ZALEPLON 5 MG CAPSULE PO PRN (23:43)
[2021-10-14] MEDS: ALBUTEROL/IPRATROPIUM 3 ML NEB RESP TX SCH ×4 (00:18→19:09)
[2021-10-14 05:16] LABS: Basophils % 0.6 % (0.0-0.8); Eosinophils # 0.3 10*3/uL (0.0-0.87); Hematocrit 29.8 VOL% (35.7-47.0); Hemoglobin 9.2 GM/DL (12.0-16.0); Immature Granulocytes % 0.6 %; Immature Granulocytes Absolute 0.02 #; Lymphocytes % 29.4 % (21.3-54.2); Mean Corpuscular HGB Conc 30.9 GM/DL (32-36); Mean Corpuscular Volume 91.4 FL (87-102); Monocytes % 7.1 % (1.7-12.7); Neutrophils % 54.3 % (38.7-73.9); Platelet Count 72 T/CUMM (130-400); Red Blood Count 3.26 MC/CUMM (3.8-5.5); Red Cell Distribution Width 24.6 % (9.3-17.3); White Blood Count 3.4 T/CUMM (4-12)
[2021-10-14 05:29] LABS: Calcium 8.1 MG/DL (8.5-10.1); Osmolality,Calculated 287.7 MOS/KG (273-304); Potassium 3.6 MMOL/L (3.5-5.1)
[2021-10-14 05:58] LABS: Hypochromia 1+
[2021-10-14 05:59] LABS: Microcytosis 1+; Ovalocytes Slight; Platelet Estimate Decreased
[2021-10-14] MEDS: LEVOTHYROXINE 100 MCG TABLET PO SCH (07:41)
[2021-10-14] MEDS ORDERED: DIGOXIN 0.125 MG TABLET PO ONE (07:46)
[2021-10-14] MEDS ORDERED: MAGNESIUM SULF RIDER 2 GM/50 ML PREMIX IV ONE (08:31)
[2021-10-14] MEDS ORDERED: POTASSIUM CHLORIDE 20 MEQ TABLET PO ONE (08:31)
[2021-10-14] MEDS ORDERED: HEPARIN 5,000 UNIT/1 ML VIAL SUBCUT SCH (09:00)
[2021-10-14] MEDS ORDERED: PANTOPRAZOLE 40 MG TABLET PO SCH (09:00)
[2021-10-14] MEDS: carvediloL 3.125 MG TABLET PO SCH ×2 (10:46→20:29)
[2021-10-14] MEDS: FUROSEMIDE 40 MG/4 ML VIAL IV SCH ×2 (10:46→15:15)
[2021-10-14] MEDS: DILTIAZEM 90 MG TABLET PO SCH ×3 (10:46→20:29)
[2021-10-14] MEDS: FERROUS SULFATE 325 MG TABLET PO SCH ×3 (10:46→20:29)
[2021-10-14] MEDS: cefTRIAXone 1,000 MG in SODIUM CHLORIDE 0.9% 100 ML IV SCH (20:29)
[2021-10-14] MEDS: LACTULOSE 20 GM/30 ML UDCUP PO SCH (20:29)
[2021-10-14] MEDS: AZITHROMYCIN INJ 500 MG in SODIUM CHLORIDE 0.9% 250 ML IV SCH (22:45)
[2021-10-15] MEDS: ALBUTEROL/IPRATROPIUM 3 ML NEB RESP TX SCH ×4 (01:35→20:45)
[2021-10-15 03:59] LABS: Basophils % 0.6 % (0.0-0.8); Eosinophils # 0.3 10*3/uL (0.0-0.87); Eosinophils % 9.6 % (0.00-10.9); Hematocrit 27.6 VOL% (35.7-47.0); Hemoglobin 8.5 GM/DL (12.0-16.0); Immature Granulocytes % 0.3 %; Immature Granulocytes Absolute 0.01 #; Lymphocytes # 0.9 10*3/uL (1.4-4.0); Lymphocytes % 26.9 % (21.3-54.2); Mean Corpuscular HGB Conc 30.8 GM/DL (32-36); Mean Corpuscular Volume 91.1 FL (87-102); Mean Platelet Volume 11.7 FL (9.6-12.0); Monocytes % 7.1 % (1.7-12.7); Neutrophils % 55.5 % (38.7-73.9); Platelet Count 80 T/CUMM (130-400); Red Blood Count 3.03 MC/CUMM (3.8-5.5); Red Cell Distribution Width 24.4 % (9.3-17.3); White Blood Count 3.2 T/CUMM (4-12)
[2021-10-15 04:25] LABS: Potassium 3.9 MMOL/L (3.5-5.1)
[2021-10-15 04:26] LABS: Hypochromia 1+; Microcytosis 1+; Platelet Estimate Decreased
[2021-10-15 04:29] LABS: Free T4 (Free Thyroxine) 1.31 NG/DL (0.76-1.46); Thyroid Stimulating Hormone 1.33 uIU/ml (0.358-3.74)
[2021-10-15] MEDS: LEVOTHYROXINE 100 MCG TABLET PO SCH (05:42)
[2021-10-15] MEDS: PANTOPRAZOLE 20 MG TABLET PO SCH (09:27)
[2021-10-15] MEDS: FERROUS SULFATE 325 MG TABLET PO SCH ×3 (10:48→20:54)
[2021-10-15] MEDS: FUROSEMIDE 40 MG/4 ML VIAL IV SCH ×2 (12:05→18:29)
[2021-10-15] MEDS: LACTULOSE 20 GM/30 ML UDCUP PO SCH ×2 (12:05→20:55)
[2021-10-15] MEDS: DILTIAZEM 90 MG TABLET PO SCH ×3 (12:05→20:55)
[2021-10-15] MEDS: carvediloL 3.125 MG TABLET PO SCH ×2 (12:05→20:55)
[2021-10-15] MEDS: DIGOXIN 0.125 MG TABLET PO SCH (18:27)
[2021-10-15] MEDS: MAGNESIUM OXIDE 400 MG TABLET PO SCH (20:54)
[2021-10-15] MEDS: ASCORBIC ACID 500 MG TABLET PO SCH (20:55)
[2021-10-15] MEDS: cefTRIAXone 1,000 MG in SODIUM CHLORIDE 0.9% 100 ML IV SCH (20:55)
[2021-10-15] MEDS: AZITHROMYCIN INJ 500 MG in SODIUM CHLORIDE 0.9% 250 ML IV SCH (23:15)
[2021-10-16] MEDS: ALBUTEROL/IPRATROPIUM 3 ML NEB RESP TX SCH ×4 (01:23→19:57)
[2021-10-16 04:01] LABS: Basophils % 0.4 % (0.0-0.8); Eosinophils # 0.2 10*3/uL (0.0-0.87); Eosinophils % 5.6 % (0.00-10.9); Hematocrit 30.1 VOL% (35.7-47.0); Hemoglobin 9.2 GM/DL (12.0-16.0); Immature Granulocytes % 0.4 %; Immature Granulocytes Absolute 0.01 #; Lymphocytes # 0.4 10*3/uL (1.4-4.0); Lymphocytes % 14.9 % (21.3-54.2); Mean Corpuscular HGB Conc 30.6 GM/DL (32-36); Mean Corpuscular Volume 91.2 FL (87-102); Mean Platelet Volume 11.7 FL (9.6-12.0); Monocytes % 6.7 % (1.7-12.7); Red Cell Distribution Width 23.8 % (9.3-17.3); White Blood Count 2.7 T/CUMM (4-12)
[2021-10-16 04:09] LABS: Platelet Count 72 T/CUMM (130-400)
[2021-10-16 04:17] LABS: Calcium 7.9 MG/DL (8.5-10.1); Osmolality,Calculated 282.1 MOS/KG (273-304); Potassium 4.2 MMOL/L (3.5-5.1)
[2021-10-16 04:29] LABS: Hypochromia 1+; Microcytosis 1+; Ovalocytes Slight; Platelet Estimate Decreased
[2021-10-16] MEDS: LEVOTHYROXINE 100 MCG TABLET PO SCH (06:10)
[2021-10-16] MEDS: carvediloL 3.125 MG TABLET PO SCH (12:19)
[2021-10-16] MEDS: MAGNESIUM OXIDE 400 MG TABLET PO SCH ×2 (12:19→21:38)
[2021-10-16] MEDS: DIGOXIN 0.125 MG TABLET PO SCH (12:19)
[2021-10-16] MEDS: FERROUS SULFATE 325 MG TABLET PO SCH ×3 (12:19→21:38)
[2021-10-16] MEDS: ASCORBIC ACID 500 MG TABLET PO SCH ×2 (12:20→21:38)
[2021-10-16] MEDS: MULTIVITAMIN (CENTRUM) TABLET PO SCH (12:20)
[2021-10-16] MEDS: PANTOPRAZOLE 20 MG TABLET PO SCH (12:20)
[2021-10-16] MEDS: DILTIAZEM 90 MG TABLET PO SCH ×2 (12:20→15:39)
[2021-10-16] MEDS: CHOLECALCIFEROL 1,000 UNIT TABLET PO SCH (12:22)
[2021-10-16] MEDS: FUROSEMIDE 40 MG/4 ML VIAL IV SCH ×2 (12:22→16:40)
[2021-10-16] MEDS: LACTULOSE 20 GM/30 ML UDCUP PO SCH ×3 (12:40→21:39)
[2021-10-16] MEDS ORDERED: METOPROLOL TARTRATE 5 MG/5 ML VIAL IV PRN (16:17)
[2021-10-16] MEDS ORDERED: FUROSEMIDE 20 MG/2 ML VIAL IV ONE (20:00)
[2021-10-16] MEDS ORDERED: carvediloL 3.125 MG TABLET PO SCH (21:00)
[2021-10-16] MEDS: METOPROLOL TARTRATE 25 MG TABLET PO SCH (21:38)
[2021-10-16] MEDS: cefTRIAXone 1,000 MG in SODIUM CHLORIDE 0.9% 100 ML IV SCH (21:45)
[2021-10-16] MEDS: AZITHROMYCIN INJ 500 MG in SODIUM CHLORIDE 0.9% 250 ML IV SCH (22:17)
[2021-10-17] MEDS: ALBUTEROL/IPRATROPIUM 3 ML NEB RESP TX SCH ×3 (00:11→12:21)
[2021-10-17 04:06] LABS: Eosinophils # 0.3 10*3/uL (0.0-0.87); Eosinophils % 9.6 % (0.00-10.9); Hemoglobin 9.2 GM/DL (12.0-16.0); Immature Granulocytes % 0.7 %; Immature Granulocytes Absolute 0.02 #; Lymphocytes % 34.6 % (21.3-54.2); Mean Corpuscular HGB Conc 29.7 GM/DL (32-36); Mean Corpuscular Volume 95.7 FL (87-102); Monocytes % 6.8 % (1.7-12.7); Neutrophils % 47.3 % (38.7-73.9); Platelet Count 85 T/CUMM (130-400); Red Blood Count 3.24 MC/CUMM (3.8-5.5); Red Cell Distribution Width 23.9 % (9.3-17.3); White Blood Count 2.9 T/CUMM (4-12)
[2021-10-17 04:25] LABS: Calcium 7.9 MG/DL (8.5-10.1); Osmolality,Calculated 279.5 MOS/KG (273-304); Potassium 4.2 MMOL/L (3.5-5.1)
[2021-10-17] MEDS: LEVOTHYROXINE 100 MCG TABLET PO SCH (05:59)
[2021-10-17] MEDS: LACTULOSE 20 GM/30 ML UDCUP PO SCH ×3 (10:07→21:25)
[2021-10-17] MEDS: FUROSEMIDE 40 MG/4 ML VIAL IV SCH ×2 (10:09→16:19)
[2021-10-17] MEDS: MAGNESIUM OXIDE 400 MG TABLET PO SCH ×2 (10:14→21:25)
[2021-10-17] MEDS: CHOLECALCIFEROL 1,000 UNIT TABLET PO SCH (10:14)
[2021-10-17] MEDS: MULTIVITAMIN (CENTRUM) TABLET PO SCH (10:14)
[2021-10-17] MEDS: FERROUS SULFATE 325 MG TABLET PO SCH ×3 (10:14→21:26)
[2021-10-17] MEDS: PANTOPRAZOLE 20 MG TABLET PO SCH (10:15)
[2021-10-17] MEDS: ASCORBIC ACID 500 MG TABLET PO SCH ×2 (10:15→21:25)
[2021-10-17] MEDS: SPIRONOLACTONE 25 MG TABLET PO SCH (10:15)
[2021-10-17] MEDS: METOPROLOL TARTRATE 25 MG TABLET PO SCH ×2 (10:15→21:25)
[2021-10-17] MEDS ORDERED: DIGOXIN 0.5 MG/2 ML AMP IV ONE (10:15)
[2021-10-17] MEDS: DIGOXIN 0.25 MG TABLET PO SCH (16:19)
[2021-10-17] MEDS: cefTRIAXone 1,000 MG in SODIUM CHLORIDE 0.9% 100 ML IV SCH (21:26)
[2021-10-17] MEDS: AZITHROMYCIN INJ 500 MG in SODIUM CHLORIDE 0.9% 250 ML IV SCH (22:55)
[2021-10-18] MEDS: ALBUTEROL/IPRATROPIUM 3 ML NEB RESP TX SCH ×4 (00:45→19:57)
[2021-10-18 04:40] LABS: Eosinophils # 0.3 10*3/uL (0.0-0.87); Eosinophils % 9.5 % (0.00-10.9); Hematocrit 29.7 VOL% (35.7-47.0); Hemoglobin 9.2 GM/DL (12.0-16.0); Immature Granulocytes % 0.3 %; Immature Granulocytes Absolute 0.01 #; Lymphocytes # 0.9 10*3/uL (1.4-4.0); Lymphocytes % 29.4 % (21.3-54.2); Mean Corpuscular Volume 92.2 FL (87-102); Mean Platelet Volume 12.1 FL (9.6-12.0); Monocytes % 10.8 % (1.7-12.7); Platelet Count 74 T/CUMM (130-400); Red Blood Count 3.22 MC/CUMM (3.8-5.5); Red Cell Distribution Width 23.5 % (9.3-17.3); White Blood Count 3.1 T/CUMM (4-12)
[2021-10-18 04:51] LABS: Calcium 8.1 MG/DL (8.5-10.1); Osmolality,Calculated 285.8 MOS/KG (273-304); Potassium 3.7 MMOL/L (3.5-5.1)
[2021-10-18 05:12] LABS: Platelet Estimate Decreased
[2021-10-18] MEDS: LEVOTHYROXINE 100 MCG TABLET PO SCH (05:32)
[2021-10-18] MEDS ORDERED: POTASSIUM CHLORIDE 20 MEQ TABLET PO ONE (10:00)
[2021-10-18] MEDS ORDERED: MAGNESIUM SULF RIDER 2 GM/50 ML PREMIX IV ONE (10:00)
[2021-10-18] MEDS: MAGNESIUM OXIDE 400 MG TABLET PO SCH ×2 (10:15→21:17)
[2021-10-18] MEDS: MULTIVITAMIN (CENTRUM) TABLET PO SCH (10:15)
[2021-10-18] MEDS: ASCORBIC ACID 500 MG TABLET PO SCH ×2 (10:15→21:17)
[2021-10-18] MEDS: CHOLECALCIFEROL 1,000 UNIT TABLET PO SCH (10:16)
[2021-10-18] MEDS: FERROUS SULFATE 325 MG TABLET PO SCH ×3 (10:16→21:17)
[2021-10-18] MEDS: SPIRONOLACTONE 25 MG TABLET PO SCH (10:16)
[2021-10-18] MEDS: METOPROLOL TARTRATE 50 MG TABLET PO SCH ×2 (10:16→21:17)
[2021-10-18] MEDS: FUROSEMIDE 40 MG/4 ML VIAL IV SCH ×2 (10:17→15:38)
[2021-10-18] MEDS: LACTULOSE 20 GM/30 ML UDCUP PO SCH ×3 (11:11→21:17)
[2021-10-18] MEDS: PANTOPRAZOLE 20 MG TABLET PO SCH (11:11)
[2021-10-18] MEDS: DIGOXIN 0.25 MG TABLET PO SCH (15:38)
[2021-10-18] MEDS: cefTRIAXone 1,000 MG in SODIUM CHLORIDE 0.9% 100 ML IV SCH (21:18)
[2021-10-19] MEDS: ALBUTEROL/IPRATROPIUM 3 ML NEB RESP TX SCH ×4 (01:00→19:25)
[2021-10-19 04:58] LABS: Eosinophils # 0.3 10*3/uL (0.0-0.87); Eosinophils % 10.9 % (0.00-10.9); Hematocrit 31.1 VOL% (35.7-47.0); Hemoglobin 9.6 GM/DL (12.0-16.0); Immature Granulocytes % 0.3 %; Immature Granulocytes Absolute 0.01 #; Lymphocytes % 30.4 % (21.3-54.2); Mean Corpuscular HGB Conc 30.9 GM/DL (32-36); Mean Corpuscular Volume 93.1 FL (87-102); Mean Platelet Volume 12.2 FL (9.6-12.0); Monocytes % 8.6 % (1.7-12.7); Neutrophils % 48.8 % (38.7-73.9); Platelet Count 100 T/CUMM (130-400); Red Blood Count 3.34 MC/CUMM (3.8-5.5); Red Cell Distribution Width 23.5 % (9.3-17.3); White Blood Count 3.1 T/CUMM (4-12)
[2021-10-19 05:24] LABS: Calcium 8.2 MG/DL (8.5-10.1); Osmolality,Calculated 285.1 MOS/KG (273-304); Potassium 3.2 MMOL/L (3.5-5.1)
[2021-10-19] MEDS: LEVOTHYROXINE 100 MCG TABLET PO SCH (06:12)
[2021-10-19] MEDS: FERROUS SULFATE 325 MG TABLET PO SCH ×3 (09:12→22:01)
[2021-10-19] MEDS: MAGNESIUM OXIDE 400 MG TABLET PO SCH ×2 (09:12→22:01)
[2021-10-19] MEDS: MULTIVITAMIN (CENTRUM) TABLET PO SCH (09:12)
[2021-10-19] MEDS: LACTULOSE 20 GM/30 ML UDCUP PO SCH ×3 (09:12→22:02)
[2021-10-19] MEDS: ASCORBIC ACID 500 MG TABLET PO SCH ×2 (09:12→22:01)
[2021-10-19] MEDS: METOPROLOL TARTRATE 50 MG TABLET PO SCH ×2 (09:12→22:02)
[2021-10-19] MEDS: PANTOPRAZOLE 20 MG TABLET PO SCH (09:12)
[2021-10-19] MEDS: CHOLECALCIFEROL 1,000 UNIT TABLET PO SCH (09:12)
[2021-10-19] MEDS: FUROSEMIDE 40 MG/4 ML VIAL IV SCH ×2 (09:13→16:31)
[2021-10-19] MEDS: SPIRONOLACTONE 25 MG TABLET PO SCH (09:18)
[2021-10-19] MEDS: POTASSIUM CHLORIDE 20 MEQ TABLET PO SCH ×2 (09:18→12:26)
[2021-10-19] MEDS: ONDANSETRON 4 MG/2 ML VIAL IV PRN (10:24)
[2021-10-19] MEDS: DIGOXIN 0.25 MG TABLET PO SCH (15:06)
[2021-10-19] MEDS: cefTRIAXone 1,000 MG in SODIUM CHLORIDE 0.9% 100 ML IV SCH (22:02)
[2021-10-20] MEDS: ALBUTEROL/IPRATROPIUM 3 ML NEB RESP TX SCH ×4 (01:14→19:42)
[2021-10-20 04:59] LABS: Eosinophils # 0.3 10*3/uL (0.0-0.87); Eosinophils % 11.3 % (0.00-10.9); Hematocrit 31.7 VOL% (35.7-47.0); Hemoglobin 9.7 GM/DL (12.0-16.0); Immature Granulocytes % 0.3 %; Immature Granulocytes Absolute 0.01 #; Lymphocytes # 0.8 10*3/uL (1.4-4.0); Mean Corpuscular HGB Conc 30.6 GM/DL (32-36); Mean Corpuscular Volume 93.5 FL (87-102); Mean Platelet Volume 11.3 FL (9.6-12.0); Neutrophils % 49.4 % (38.7-73.9); Platelet Count 89 T/CUMM (130-400); Red Blood Count 3.39 MC/CUMM (3.8-5.5); Red Cell Distribution Width 23.1 % (9.3-17.3)
[2021-10-20 05:18] LABS: Calcium 8.2 MG/DL (8.5-10.1); Potassium 3.9 MMOL/L (3.5-5.1)
[2021-10-20] MEDS: LEVOTHYROXINE 100 MCG TABLET PO SCH (06:31)
[2021-10-20 07:32] LABS: Eosinophils 7 % (0-10); Hypochromia Slight; Lymphocytes 33 % (20-55); Platelet Estimate Adequate; Segmented Neutrophils 46 % (50-85); Total Cells Counted 100
[2021-10-20] MEDS: MAGNESIUM OXIDE 400 MG TABLET PO SCH ×2 (09:27→20:39)
[2021-10-20] MEDS: FUROSEMIDE 40 MG/4 ML VIAL IV SCH ×2 (09:28→16:34)
[2021-10-20] MEDS: CHOLECALCIFEROL 1,000 UNIT TABLET PO SCH (09:28)
[2021-10-20] MEDS: SPIRONOLACTONE 25 MG TABLET PO SCH (09:28)
[2021-10-20] MEDS: METOPROLOL TARTRATE 50 MG TABLET PO SCH (09:28)
[2021-10-20] MEDS: FERROUS SULFATE 325 MG TABLET PO SCH ×3 (09:28→20:40)
[2021-10-20] MEDS: ASCORBIC ACID 500 MG TABLET PO SCH ×2 (09:28→20:40)
[2021-10-20] MEDS: MULTIVITAMIN (CENTRUM) TABLET PO SCH (09:28)
[2021-10-20] MEDS: LACTULOSE 20 GM/30 ML UDCUP PO SCH ×3 (09:29→20:40)
[2021-10-20] MEDS: PANTOPRAZOLE 20 MG TABLET PO SCH (09:31)
[2021-10-20] MEDS: DIGOXIN 0.25 MG TABLET PO SCH (15:12)
[2021-10-20] MEDS: cefTRIAXone 1,000 MG in SODIUM CHLORIDE 0.9% 100 ML IV SCH (20:40)
[2021-10-20] MEDS: ONDANSETRON 4 MG/2 ML VIAL IV PRN (22:17)
[2021-10-21] MEDS: ALBUTEROL/IPRATROPIUM 3 ML NEB RESP TX SCH ×2 (01:03→07:16)
[2021-10-21] MEDS: LEVOTHYROXINE 100 MCG TABLET PO SCH (06:14)
[2021-10-21] MEDS: SPIRONOLACTONE 25 MG TABLET PO SCH (08:08)
[2021-10-21] MEDS: FERROUS SULFATE 325 MG TABLET PO SCH (08:08)
[2021-10-21] MEDS: ASCORBIC ACID 500 MG TABLET PO SCH (08:08)
[2021-10-21] MEDS: MULTIVITAMIN (CENTRUM) TABLET PO SCH (08:08)
[2021-10-21] MEDS: MAGNESIUM OXIDE 400 MG TABLET PO SCH (08:08)
[2021-10-21] MEDS: CHOLECALCIFEROL 1,000 UNIT TABLET PO SCH (08:09)
[2021-10-21] MEDS: FUROSEMIDE 40 MG/4 ML VIAL IV SCH (08:09)
[2021-10-21] MEDS: LACTULOSE 20 GM/30 ML UDCUP PO SCH (08:09)
[2021-10-21] MEDS: PANTOPRAZOLE 20 MG TABLET PO SCH (08:09)
[2021-10-21] MEDS ORDERED: BISOPROLOL 5 MG TABLET PO SCH (09:00)
[2021-10-21 09:23] LABS: Basophils % 0.9 % (0.0-0.8); Eosinophils # 0.4 10*3/uL (0.0-0.87); Eosinophils % 13.4 % (0.00-10.9); Hematocrit 36.1 VOL% (35.7-47.0); Hemoglobin 10.9 GM/DL (12.0-16.0); Immature Granulocytes % 0.3 %; Immature Granulocytes Absolute 0.01 #; Lymphocytes # 1.2 10*3/uL (1.4-4.0); Lymphocytes % 35.9 % (21.3-54.2); Mean Corpuscular HGB Conc 30.2 GM/DL (32-36); Mean Corpuscular Volume 94.3 FL (87-102); Mean Platelet Volume 11.7 FL (9.6-12.0); Neutrophils % 42.5 % (38.7-73.9); Platelet Count 115 T/CUMM (130-400); Red Blood Count 3.83 MC/CUMM (3.8-5.5); Red Cell Distribution Width 22.6 % (9.3-17.3); White Blood Count 3.3 T/CUMM (4-12)
[2021-10-21 09:32] LABS: Calcium 8.2 MG/DL (8.5-10.1); Osmolality,Calculated 287.1 MOS/KG (273-304); Potassium 3.8 MMOL/L (3.5-5.1)
[2021-10-21 10:57] LABS: Atypical Lymphocytes Few; Eosinophils 11 % (0-10); Lymphocytes 39 % (20-55); Polychromasia Slight; Schistocytes Few; Segmented Neutrophils 45 % (50-85); Total Cells Counted 100
[2021-10-21 10:58] LABS: Elliptocytes Few; Platelet Estimate Adequate
[2021-10-21 11:31] VITALS: BP 96/64
== END 2021-10-21 13:10 | disposition home health service (06) | DRG 193 ==
LOC: EDUNIT# → EDBD → N.ED 17:18 → N.EDINP 23:43 → N.TELEN 10-14 03:28
PROVIDERS: ADMIT Hospitalist; ATTEND Hospitalist

== ENCOUNTER 2021-12-15 08:51 | Inpatient (IN) ==
[2021-12-15 09:43] LABS: Basophils % 1.1 % (0.0-0.8); Eosinophils # 0.2 10*3/uL (0.0-0.87); Eosinophils % 6.9 % (0.00-10.9); Hematocrit 35.8 VOL% (35.7-47.0); Hemoglobin 11.5 GM/DL (12.0-16.0); Lymphocytes # 0.5 10*3/uL (1.4-4.0); Lymphocytes % 20.2 % (21.3-54.2); Mean Corpuscular HGB Conc 32.1 GM/DL (32-36); Mean Corpuscular Volume 94.5 FL (87-102); Mean Platelet Volume 12.9 FL (9.6-12.0); Monocytes % 9.2 % (1.7-12.7); Neutrophils % 62.6 % (38.7-73.9); Platelet Count 63 T/CUMM (130-400); Red Blood Count 3.79 MC/CUMM (3.8-5.5); Red Cell Distribution Width 15.3 % (9.3-17.3); White Blood Count 2.6 T/CUMM (4-12)
[2021-12-15 09:58] LABS: Alanine Aminotransferase 23 U/L (13-56); Albumin 2.4 G/DL (3.4-5.0); Alkaline Phosphatase 130 U/L (45-117); Aspartate Amino Transferase 30 U/L (0-37); Blood Urea Nitrogen 14 MG/DL (7-18); Calcium 8.2 MG/DL (8.5-10.1); Carbon Dioxide 24 MMOL/L (21-32); Estimated Glom Filtration Rate 74 ML/MIN; Glucose 99 MG/DL (74-106); Osmolality,Calculated 288.7 MOS/KG (273-304); Potassium 3.7 MMOL/L (3.5-5.1); Sodium 145 MMOL/L (136-145); Total Protein 5.6 G/DL (6.4-8.2)
[2021-12-15 10:00] LABS: ABG Base Excess -2.5 MMOL/L (-2.5-2.5); ABG HCO3 22.3 MMOL/L (20-26); ABG Oxygen Saturation 99.4 % (95-100); ABG PCO2 30.6 MM HG (35-48); ABG PH 7.437 (7.35-7.45); ABG TCO2 18.2 MMOL/L (23-27)
[2021-12-15 10:01] LABS: Allen Test Positive
[2021-12-15 10:04] LABS: Bilirubin,Urine Negative (Negative); Blood, Urine Negative (Negative); Glucose,Urine (UA) Negative (Negative); Ketones,Urine Negative (Negative); Nitrite,Urine Negative (Negative); Protein,Urine 30 MG/DL; Urine Appearance Clear (Clear); Urine Color Yellow (Yellow); Urine Specific Gravity >= 1.030 (1.001-1.035)
[2021-12-15 10:15] LABS: Barbiturates Screen,Urine Negative (Negative); Benzodiazepines Screen,Urine Positive (Negative); Cannabinoid Screen,Urine Negative (Negative); Opiate Screen,Urine Negative (Negative); Phencyclidine Screen,Urine Negative (Negative)
[2021-12-15 10:24] LABS: Bacteria,Urine Occasional /HPF (Few); Mucus,Urine Occasional /LPF (Occasional); RBC,Urine 1 /HPF (0-4); Squamous Epithelial Cell,Urine Occasional /HPF (0-10)
[2021-12-15 10:45] LABS: Platelet Estimate Decreased
[2021-12-15 11:02] LABS: INR 1.2; Partial Thromboplastin Time 26.2 SECS (23.8-32.1)
[2021-12-15] MEDS ORDERED: ONDANSETRON 4 MG/2 ML VIAL IV PRN (11:29)
[2021-12-15] MEDS ORDERED: GLUCAGON 1 MG VIAL IM PRN (11:29)
[2021-12-15] MEDS ORDERED: DEXTROSE 10% 250 ML BAG IV PRN (11:43)
[2021-12-15] MEDS: DEXTROSE 5% NACL 0.45% 1,000 ML IV SCH (11:49)
[2021-12-15] MEDS: LACTULOSE 20 GM/30 ML UDCUP PO SCH ×4 (11:52→22:52)
[2021-12-15] MEDS: PANTOPRAZOLE 40 MG VIAL IV SCH (11:56)
[2021-12-15] MEDS ORDERED: DIGOXIN 0.5 MG/2 ML AMP IV ONE (12:19)
[2021-12-15] MEDS: NEOMYCIN 500 MG TABLET PO SCH ×2 (13:01→22:18)
[2021-12-15] MEDS ORDERED: ZIPRASIDONE 20 MG/1 ML VIAL IM ONE (15:13)
[2021-12-15] MEDS: LACTULOSE 320 GM/480 ML BOTTLE RECTAL SCH ×3 (15:39→22:18)
[2021-12-15] MEDS ORDERED: LORazepam 2 MG/1 ML VIAL IV ONE (22:42)
[2021-12-16] MEDS: DEXTROSE 5% NACL 0.45% 1,000 ML IV SCH ×2 (02:24→15:20)
[2021-12-16 05:00] LABS: Basophils % 1.3 % (0.0-0.8); Eosinophils # 0.2 10*3/uL (0.0-0.87); Eosinophils % 10.5 % (0.00-10.9); Hematocrit 33.8 VOL% (35.7-47.0); Hemoglobin 10.6 GM/DL (12.0-16.0); Lymphocytes # 0.8 10*3/uL (1.4-4.0); Lymphocytes % 34.1 % (21.3-54.2); Mean Corpuscular HGB Conc 31.4 GM/DL (32-36); Mean Corpuscular Volume 96.6 FL (87-102); Mean Platelet Volume 12.3 FL (9.6-12.0); Monocytes % 9.2 % (1.7-12.7); Neutrophils % 44.9 % (38.7-73.9); Red Cell Distribution Width 15.4 % (9.3-17.3); White Blood Count 2.3 T/CUMM (4-12)
[2021-12-16] MEDS: LACTULOSE 20 GM/30 ML UDCUP PO SCH ×6 (05:02→23:24)
[2021-12-16 05:03] LABS: Platelet Count 64 T/CUMM (130-400)
[2021-12-16 05:31] LABS: Albumin 1.9 G/DL (3.4-5.0); Bilirubin,Total 1.2 MG/DL (0.20-1.00); Calcium 8.1 MG/DL (8.5-10.1); Osmolality,Calculated 292.3 MOS/KG (273-304); Potassium 3.3 MMOL/L (3.5-5.1)
[2021-12-16] MEDS: LEVOTHYROXINE 100 MCG VIAL IV SCH (07:15)
[2021-12-16] MEDS: PANTOPRAZOLE 40 MG VIAL IV SCH (09:23)
[2021-12-16] MEDS: LACTULOSE 320 GM/480 ML BOTTLE RECTAL SCH ×2 (09:24→22:16)
[2021-12-16] MEDS: NEOMYCIN 500 MG TABLET PO SCH ×2 (09:24→22:16)
[2021-12-16] MEDS ORDERED: LORazepam 2 MG/1 ML VIAL IV ONE (11:32)
[2021-12-16] MEDS: DIGOXIN 0.5 MG/2 ML AMP IV SCH (14:08)
[2021-12-16] MEDS ORDERED: POTASSIUM CHLORIDE 20 MEQ TABLET PO PRN (14:26)
[2021-12-16] MEDS ORDERED: MAGNESIUM SULF RIDER 2 GM/50 ML PREMIX IV PRN (14:26)
[2021-12-16] MEDS ORDERED: MAGNESIUM SULF RIDER 4 GM/100 ML PREMIX IV PRN (14:26)
[2021-12-17] MEDS: LACTULOSE 20 GM/30 ML UDCUP PO SCH ×4 (04:46→22:21)
[2021-12-17] MEDS: DEXTROSE 5% NACL 0.45% 1,000 ML IV SCH ×2 (04:46→22:20)
[2021-12-17] MEDS: LEVOTHYROXINE 100 MCG VIAL IV SCH (06:10)
[2021-12-17 06:12] LABS: Basophils % 0.9 % (0.0-0.8); Eosinophils # 0.3 10*3/uL (0.0-0.87); Eosinophils % 8.6 % (0.00-10.9); Hematocrit 32.4 VOL% (35.7-47.0); Hemoglobin 10.3 GM/DL (12.0-16.0); Immature Granulocytes % 0.3 %; Immature Granulocytes Absolute 0.01 #; Lymphocytes # 0.6 10*3/uL (1.4-4.0); Lymphocytes % 18.8 % (21.3-54.2); Mean Corpuscular HGB Conc 31.8 GM/DL (32-36); Mean Corpuscular Volume 95.6 FL (87-102); Mean Platelet Volume 13.1 FL (9.6-12.0); Monocytes % 7.4 % (1.7-12.7); Platelet Count 64 T/CUMM (130-400); Red Blood Count 3.39 MC/CUMM (3.8-5.5); Red Cell Distribution Width 15.3 % (9.3-17.3); White Blood Count 3.2 T/CUMM (4-12)
[2021-12-17 06:24] LABS: Albumin 1.9 G/DL (3.4-5.0); Bilirubin,Total 1.4 MG/DL (0.20-1.00); Calcium 7.6 MG/DL (8.5-10.1); Osmolality,Calculated 290.4 MOS/KG (273-304); Potassium 3.5 MMOL/L (3.5-5.1)
[2021-12-17 06:42] LABS: Hypochromia Slight; Microcytosis 1+; Ovalocytes Few
[2021-12-17 06:43] LABS: Platelet Estimate Decreased
[2021-12-17] MEDS: PANTOPRAZOLE 40 MG VIAL IV SCH (08:51)
[2021-12-17] MEDS: LACTULOSE 320 GM/480 ML BOTTLE RECTAL SCH (09:43)
[2021-12-17] MEDS: NEOMYCIN 500 MG TABLET PO SCH (09:44)
[2021-12-17] MEDS: BISOPROLOL 5 MG TABLET PO SCH (11:39)
[2021-12-17] MEDS: DIGOXIN 0.5 MG/2 ML AMP IV SCH (13:18)
[2021-12-17] MEDS: ZINC OXIDE PASTE 113 GM TUBE TOP SCH ×2 (16:16→21:20)
[2021-12-18 05:34] LABS: Basophils % 1.1 % (0.0-0.8); Eosinophils # 0.4 10*3/uL (0.0-0.87); Eosinophils % 13.1 % (0.00-10.9); Hematocrit 32.5 VOL% (35.7-47.0); Hemoglobin 10.3 GM/DL (12.0-16.0); Immature Granulocytes % 0.4 %; Immature Granulocytes Absolute 0.01 #; Lymphocytes # 0.9 10*3/uL (1.4-4.0); Lymphocytes % 31.1 % (21.3-54.2); Mean Corpuscular HGB Conc 31.7 GM/DL (32-36); Mean Corpuscular Volume 95.6 FL (87-102); Mean Platelet Volume 12.8 FL (9.6-12.0); Monocytes % 8.1 % (1.7-12.7); Neutrophils % 46.2 % (38.7-73.9); Platelet Count 65 T/CUMM (130-400); White Blood Count 2.8 T/CUMM (4-12)
[2021-12-18 05:42] LABS: Albumin 1.9 G/DL (3.4-5.0); Bilirubin,Total 1.1 MG/DL (0.20-1.00); Calcium 7.7 MG/DL (8.5-10.1); Osmolality,Calculated 280.3 MOS/KG (273-304); Potassium 3.5 MMOL/L (3.5-5.1)
[2021-12-18] MEDS: LACTULOSE 20 GM/30 ML UDCUP PO SCH (05:48)
[2021-12-18 06:07] LABS: Eosinophils 13 % (0-10); Hypochromia 1+; Lymphocytes 24 % (20-55); Microcytosis 1+; Ovalocytes Slight; Platelet Estimate Decreased; Segmented Neutrophils 53 % (50-85); Total Cells Counted 100
[2021-12-18] MEDS: LEVOTHYROXINE 100 MCG VIAL IV SCH (06:14)
[2021-12-18] MEDS: DEXTROSE 5% NACL 0.45% 1,000 ML IV SCH ×2 (07:40→08:56)
[2021-12-18] MEDS: BISOPROLOL 5 MG TABLET PO SCH (08:52)
[2021-12-18] MEDS: PANTOPRAZOLE 40 MG VIAL IV SCH (08:53)
[2021-12-18] MEDS: ZINC OXIDE PASTE 113 GM TUBE TOP SCH (08:54)
[2021-12-18 11:27] VITALS: BP 104/88
[2021-12-18] MEDS ORDERED: HEPARIN LOCK FLUSH 500 UNIT/5 ML SYRINGE IV PRN (11:45)
== END 2021-12-18 11:55 | disposition home or self-care (01) | DRG 442 ==
LOC: N.ED 08:51 → N.3E 10:50 → SUATTDRO 10:50 → N.3E 13:10
PROVIDERS: ADMIT Emergency Medicine; ATTEND Internal Medicine Geriatric Medicine

== ENCOUNTER 2022-02-25 13:05 | Inpatient (IN) ==
[2022-02-25] MEDS ORDERED: SODIUM CHLORIDE 0.9% 1,000 ML IV STA (13:50)
[2022-02-25 14:03] LABS: Basophils % 0.8 % (0.0-0.8); Eosinophils # 0.1 10*3/uL (0.0-0.87); Eosinophils % 4.2 % (0.00-10.9); Hematocrit 33.8 VOL% (35.7-47.0); Hemoglobin 10.5 GM/DL (12.0-16.0); Immature Granulocytes % 0.4 %; Immature Granulocytes Absolute 0.01 #; Lymphocytes # 0.6 10*3/uL (1.4-4.0); Lymphocytes % 22.4 % (21.3-54.2); Mean Corpuscular HGB Conc 31.1 GM/DL (32-36); Mean Corpuscular Volume 92.6 FL (87-102); Mean Platelet Volume 13.4 FL (9.6-12.0); Monocytes # 0.2 10*3/uL (0.11-0.8); Monocytes % 5.7 % (1.7-12.7); Neutrophils % 66.5 % (38.7-73.9); Platelet Count 56 T/CUMM (130-400); Red Blood Count 3.65 MC/CUMM (3.8-5.5); Red Cell Distribution Width 14.8 % (9.3-17.3); White Blood Count 2.6 T/CUMM (4-12)
[2022-02-25 14:23] LABS: Albumin 2.8 G/DL (3.4-5.0); Bilirubin,Total 1.3 MG/DL (0.20-1.00); Calcium 8.6 MG/DL (8.5-10.1); Osmolality,Calculated 288.7 MOS/KG (273-304); Potassium 3.7 MMOL/L (3.5-5.1); Total Protein 5.9 G/DL (6.4-8.2)
[2022-02-25] MEDS ORDERED: METOPROLOL TARTRATE 5 MG/5 ML VIAL IV STA (16:49)
[2022-02-25] MEDS ORDERED: LACTATED RINGERS 500 ML IV ONE (17:00)
[2022-02-25] MEDS ORDERED: guaiFENesin/DM ER 600-30 MG TABLET PO PRN (17:05)
[2022-02-25] MEDS ORDERED: GLUCAGON 1 MG VIAL IM PRN (17:05)
[2022-02-25] MEDS ORDERED: ONDANSETRON 4 MG/2 ML VIAL IV PRN (17:05)
[2022-02-25] MEDS ORDERED: ALBUTEROL 2.5 MG/3 ML NEB RESP TX PRN (17:05)
[2022-02-25] MEDS ORDERED: ACETAMINOPHEN 325 MG TABLET PO PRN (17:05)
[2022-02-25] MEDS ORDERED: traZODone 50 MG TABLET PO PRN (17:11)
[2022-02-25] MEDS ORDERED: DEXTROSE 10% 250 ML BAG IV PRN (17:28)
[2022-02-25] MEDS: LACTULOSE 20 GM/30 ML UDCUP PO SCH ×2 (19:08→21:14)
[2022-02-25] MEDS: LACTATED RINGERS 1,000 ML IV SCH (19:09)
[2022-02-25] MEDS: FUROSEMIDE 40 MG TABLET PO SCH ×2 (20:24→22:46)
[2022-02-25] MEDS ORDERED: LORazepam 2 MG/1 ML VIAL IM ONE (23:27)
[2022-02-26] MEDS: LACTULOSE 20 GM/30 ML UDCUP PO SCH ×6 (00:08→23:48)
[2022-02-26] MEDS: LACTATED RINGERS 1,000 ML IV SCH (03:56)
[2022-02-26 04:13] LABS: Basophils % 0.9 % (0.0-0.8); Eosinophils # 0.2 10*3/uL (0.0-0.87); Eosinophils % 7.7 % (0.00-10.9); Hematocrit 32.3 VOL% (35.7-47.0); Immature Granulocytes % 0.4 %; Immature Granulocytes Absolute 0.01 #; Lymphocytes # 0.7 10*3/uL (1.4-4.0); Lymphocytes % 28.1 % (21.3-54.2); Mean Corpuscular Volume 93.6 FL (87-102); Mean Platelet Volume 12.6 FL (9.6-12.0); Monocytes # 0.2 10*3/uL (0.11-0.8); Monocytes % 7.7 % (1.7-12.7); Neutrophils % 55.2 % (38.7-73.9); Platelet Count 59 T/CUMM (130-400); Red Blood Count 3.45 MC/CUMM (3.8-5.5); White Blood Count 2.4 T/CUMM (4-12)
[2022-02-26 04:37] LABS: Hypochromia Slight; Microcytosis Slight; Ovalocytes Slight; Platelet Estimate Decreased
[2022-02-26 04:38] LABS: Burr Cells Slight
[2022-02-26 04:43] LABS: Albumin 2.4 G/DL (3.4-5.0); Bilirubin,Total 1.4 MG/DL (0.20-1.00); Calcium 8.6 MG/DL (8.5-10.1); Osmolality,Calculated 289.6 MOS/KG (273-304); Potassium 3.7 MMOL/L (3.5-5.1); Risk Ratio 2.35; Thyroid Stimulating Hormone 9.53 uIU/ml (0.358-3.74); Total Protein 5.4 G/DL (6.4-8.2); VLDL Cholesterol 10.8 MG/DL
[2022-02-26] MEDS: PANTOPRAZOLE 40 MG TABLET PO SCH ×2 (05:34→05:36)
[2022-02-26] MEDS ORDERED: LEVOTHYROXINE 100 MCG TABLET PO SCH (06:30)
[2022-02-26] MEDS: SPIRONOLACTONE 25 MG TABLET PO SCH (09:00)
[2022-02-26] MEDS: METOPROLOL SUCCINATE XL 25 MG TABLET PO SCH (09:00)
[2022-02-26] MEDS: FUROSEMIDE 40 MG TABLET PO SCH ×2 (09:00→20:45)
[2022-02-26] MEDS: DIGOXIN 0.25 MG TABLET PO SCH (12:11)
[2022-02-27 04:39] LABS: Basophils % 1.1 % (0.0-0.8); Eosinophils # 0.3 10*3/uL (0.0-0.87); Eosinophils % 10.8 % (0.00-10.9); Hematocrit 30.5 VOL% (35.7-47.0); Hemoglobin 9.6 GM/DL (12.0-16.0); Immature Granulocytes % 0.4 %; Immature Granulocytes Absolute 0.01 #; Lymphocytes # 0.7 10*3/uL (1.4-4.0); Lymphocytes % 26.3 % (21.3-54.2); Mean Corpuscular HGB Conc 31.5 GM/DL (32-36); Mean Corpuscular Volume 93.8 FL (87-102); Mean Platelet Volume 11.7 FL (9.6-12.0); Monocytes # 0.3 10*3/uL (0.11-0.8); Neutrophils % 52.4 % (38.7-73.9); Platelet Count 53 T/CUMM (130-400); Red Blood Count 3.25 MC/CUMM (3.8-5.5); Red Cell Distribution Width 15.1 % (9.3-17.3); White Blood Count 2.8 T/CUMM (4-12)
[2022-02-27 04:59] LABS: Albumin 2.2 G/DL (3.4-5.0); Bilirubin,Total 1.3 MG/DL (0.20-1.00); Calcium 7.8 MG/DL (8.5-10.1); Osmolality,Calculated 288.6 MOS/KG (273-304); Potassium 3.2 MMOL/L (3.5-5.1); Total Protein 5.1 G/DL (6.4-8.2)
[2022-02-27 05:06] LABS: Microcytosis Slight; Ovalocytes Few; Platelet Estimate Decreased
[2022-02-27] MEDS: LACTULOSE 20 GM/30 ML UDCUP PO SCH ×2 (05:40→12:13)
[2022-02-27] MEDS: PANTOPRAZOLE 40 MG TABLET PO SCH (05:40)
[2022-02-27] MEDS ORDERED: LEVOTHYROXINE 100 MCG TABLET PO SCH (06:30)
[2022-02-27] MEDS ORDERED: POTASSIUM CHLORIDE 20 MEQ TABLET PO ONE (08:06)
[2022-02-27 08:34] VITALS: BP 113/69
[2022-02-27] MEDS ORDERED: MULTIVITAMIN (CENTRUM) TABLET PO SCH (09:00)
[2022-02-27] MEDS: METOPROLOL SUCCINATE XL 25 MG TABLET PO SCH (10:11)
[2022-02-27] MEDS: SPIRONOLACTONE 25 MG TABLET PO SCH (10:11)
[2022-02-27] MEDS: FUROSEMIDE 40 MG TABLET PO SCH (10:12)
[2022-02-27] MEDS ORDERED: METOPROLOL SUCCINATE XL 25 MG TABLET PO ONE (12:00)
[2022-02-27] MEDS: DIGOXIN 0.25 MG TABLET PO SCH (12:13)
[2022-02-28] MEDS ORDERED: METOPROLOL SUCCINATE XL 50 MG TABLET PO SCH (09:00)
== END 2022-02-27 14:05 | disposition home health service (06) | DRG 442 ==
LOC: EDUNIT# → EDBD → N.ED 13:05 → N.TELEN 17:05
PROVIDERS: ADMIT Internal Medicine; ATTEND Internal Medicine

== ENCOUNTER 2022-03-13 02:03 | Inpatient (IN) ==
[2022-03-13] MEDS ORDERED: ONDANSETRON 4 MG/2 ML VIAL IV STA (02:15)
[2022-03-13] MEDS ORDERED: SODIUM CHLORIDE 0.9% 500 ML IV STA (02:15)
[2022-03-13] MEDS ORDERED: LACTULOSE 20 GM/30 ML UDCUP PO STA (02:30)
[2022-03-13 02:35] LABS: Mucus,Urine Few /LPF (Occasional); RBC,Urine <1 /HPF (0-4); Squamous Epithelial Cell,Urine Occasional /HPF (0-10)
[2022-03-13 02:36] LABS: Bilirubin,Urine Negative (Negative); Blood, Urine Negative (Negative); Glucose,Urine (UA) Negative (Negative); Ketones,Urine Negative (Negative); Nitrite,Urine Negative (Negative); Protein,Urine Negative (Negative); Urine Appearance Clear (Clear); Urine Color Yellow (Yellow); Urine Specific Gravity > 1.030 (1.001-1.035); Urine Urobilinogen 0.2 eU/dL (<2.0)
[2022-03-13 02:36] LABS: Basophils % 0.9 % (0.0-0.8); Eosinophils # 0.3 10*3/uL (0.0-0.87); Eosinophils % 9.9 % (0.00-10.9); Hematocrit 34.5 VOL% (35.7-47.0); Hemoglobin 10.9 GM/DL (12.0-16.0); Lymphocytes # 0.9 10*3/uL (1.4-4.0); Lymphocytes % 27.2 % (21.3-54.2); Mean Corpuscular HGB Conc 31.6 GM/DL (32-36); Mean Platelet Volume 12.4 FL (9.6-12.0); Monocytes # 0.3 10*3/uL (0.11-0.8); Monocytes % 7.7 % (1.7-12.7); Neutrophils % 54.3 % (38.7-73.9); Platelet Count 70 T/CUMM (130-400); Red Blood Count 3.75 MC/CUMM (3.8-5.5); Red Cell Distribution Width 16.4 % (9.3-17.3); White Blood Count 3.2 T/CUMM (4-12)
[2022-03-13 02:44] LABS: INR 1.2
[2022-03-13 02:48] LABS: Barbiturates Screen,Urine Negative (Negative); Benzodiazepines Screen,Urine Negative (Negative); Cannabinoid Screen,Urine Negative (Negative); Opiate Screen,Urine Negative (Negative); Phencyclidine Screen,Urine Negative (Negative)
[2022-03-13 02:54] LABS: ABG Base Excess 0.4 MMOL/L (-2.5-2.5); ABG HCO3 24.8 MMOL/L (20-26); ABG Oxygen Saturation 98.5 % (95-100); ABG PCO2 31.4 MM HG (35-48); ABG TCO2 21.2 MMOL/L (23-27)
[2022-03-13 03:04] LABS: Alanine Aminotransferase 30 U/L (13-56); Albumin 2.4 G/DL (3.4-5.0); Alkaline Phosphatase 156 U/L (45-117); Amylase 28 U/L (25-115); Aspartate Amino Transferase 43 U/L (0-37); Blood Urea Nitrogen 21 MG/DL (7-18); Calcium 8.7 MG/DL (8.5-10.1); Carbon Dioxide 25 MMOL/L (21-32); Chloride 115 MMOL/L (98-107); Glucose 149 MG/DL (74-106); Osmolality,Calculated 295.6 MOS/KG (273-304); Potassium 3.5 MMOL/L (3.5-5.1); Sodium 146 MMOL/L (136-145); Total Protein 5.8 G/DL (6.4-8.2)
[2022-03-13] MEDS ORDERED: DEXTROSE 10% 250 ML BAG IV PRN (03:26)
[2022-03-13] MEDS ORDERED: ONDANSETRON 4 MG/2 ML VIAL IV PRN (03:26)
[2022-03-13] MEDS ORDERED: GLUCAGON 1 MG VIAL IM PRN (03:26)
[2022-03-13] MEDS: LACTULOSE 20 GM/30 ML UDCUP PO SCH ×5 (09:43→21:26)
[2022-03-13] MEDS: FUROSEMIDE 40 MG TABLET PO SCH ×2 (09:53→17:59)
[2022-03-13] MEDS: SPIRONOLACTONE 25 MG TABLET PO SCH (09:53)
[2022-03-13] MEDS: PANTOPRAZOLE 40 MG TABLET PO SCH (09:53)
[2022-03-13] MEDS: DIGOXIN 0.5 MG/2 ML AMP IV SCH (14:32)
[2022-03-13] MEDS ORDERED: METOPROLOL TARTRATE 5 MG/5 ML VIAL IV ONE (19:52)
[2022-03-13] MEDS: METOPROLOL TARTRATE 5 MG/5 ML VIAL IV SCH (21:26)
[2022-03-14] MEDS: LACTULOSE 20 GM/30 ML UDCUP PO SCH ×3 (01:30→09:00)
[2022-03-14 05:30] LABS: Basophils % 0.7 % (0.0-0.8); Eosinophils # 0.3 10*3/uL (0.0-0.87); Eosinophils % 11.4 % (0.00-10.9); Hematocrit 30.2 VOL% (35.7-47.0); Hemoglobin 9.5 GM/DL (12.0-16.0); Immature Granulocytes % 0.3 %; Immature Granulocytes Absolute 0.01 #; Lymphocytes # 0.7 10*3/uL (1.4-4.0); Lymphocytes % 24.6 % (21.3-54.2); Mean Corpuscular HGB Conc 31.5 GM/DL (32-36); Mean Corpuscular Volume 92.9 FL (87-102); Mean Platelet Volume 11.6 FL (9.6-12.0); Monocytes # 0.2 10*3/uL (0.11-0.8); Monocytes % 6.6 % (1.7-12.7); Neutrophils % 56.4 % (38.7-73.9); Platelet Count 59 T/CUMM (130-400); Red Blood Count 3.25 MC/CUMM (3.8-5.5); Red Cell Distribution Width 16.2 % (9.3-17.3); White Blood Count 2.9 T/CUMM (4-12)
[2022-03-14 05:52] LABS: Bilirubin,Total 1.3 MG/DL (0.20-1.00); Calcium 8.2 MG/DL (8.5-10.1); Osmolality,Calculated 295.1 MOS/KG (273-304); Potassium 3.4 MMOL/L (3.5-5.1)
[2022-03-14 05:57] LABS: Eosinophils 9 % (0-10); Lymphocytes 20 % (20-55)
[2022-03-14 05:58] LABS: Platelet Estimate Decreased
[2022-03-14 05:59] LABS: Total Cells Counted 100
[2022-03-14] MEDS ORDERED: LEVOTHYROXINE 100 MCG VIAL IV SCH (06:30)
[2022-03-14] MEDS ORDERED: DEXTROSE 5% 1,000 ML IV SCH (07:30)
[2022-03-14] MEDS ORDERED: POTASSIUM CHLORIDE 20 MEQ TABLET PO ONE (08:00)
[2022-03-14] MEDS: METOPROLOL TARTRATE 5 MG/5 ML VIAL IV SCH (08:57)
[2022-03-14] MEDS: DIGOXIN 0.5 MG/2 ML AMP IV SCH (08:59)
[2022-03-14] MEDS: FUROSEMIDE 40 MG TABLET PO SCH (09:01)
[2022-03-14] MEDS: SPIRONOLACTONE 25 MG TABLET PO SCH (09:01)
[2022-03-14] MEDS: PANTOPRAZOLE 40 MG TABLET PO SCH (09:01)
[2022-03-14 09:14] VITALS: BP 112/69
== END 2022-03-14 11:14 | disposition home health service (06) | DRG 442 ==
LOC: N.ED 02:03 → N.EDINP 03:26 → SUATTDRO 03:26 → N.3E 14:07
PROVIDERS: ADMIT Internal Medicine Geriatric Medicine; ATTEND Family Medicine

== ENCOUNTER 2022-05-18 15:00 | Inpatient (IN) ==
[2022-05-18 15:55] LABS: Hematocrit 34.7 VOL% (35.7-47.0); Hemoglobin 10.7 GM/DL (12.0-16.0); Immature Granulocytes % 0.4 %; Immature Granulocytes Absolute 0.01 #; Lymphocytes # 0.3 10*3/uL (1.4-4.0); Lymphocytes % 11.7 % (21.3-54.2); Mean Corpuscular HGB Conc 30.8 GM/DL (32-36); Mean Corpuscular Volume 91.8 FL (87-102); Mean Platelet Volume 12.5 FL (9.6-12.0); Monocytes # 0.1 10*3/uL (0.11-0.8); Monocytes % 2.5 % (1.7-12.7); Neutrophils % 85.4 % (38.7-73.9); Platelet Count 59 T/CUMM (130-400); Red Blood Count 3.78 MC/CUMM (3.8-5.5); Red Cell Distribution Width 18.2 % (9.3-17.3); White Blood Count 2.8 T/CUMM (4-12)
[2022-05-18 16:07] LABS: INR 1.1; PT Patient Result 12.4 SECS (10.1-12.1); Partial Thromboplastin Time 25.2 SECS (23.7-32.9)
[2022-05-18 16:10] LABS: Albumin 2.6 G/DL (3.4-5.0); Calcium 8.7 MG/DL (8.5-10.1); Osmolality,Calculated 292.6 MOS/KG (273-304); Potassium 3.9 MMOL/L (3.5-5.1)
[2022-05-18] MEDS ORDERED: METOPROLOL TARTRATE 5 MG/5 ML VIAL IV STA ×2 (16:32→17:44)
[2022-05-18] MEDS ORDERED: LACTULOSE 20 GM/30 ML UDCUP PO STA (17:31)
[2022-05-18] MEDS ORDERED: SODIUM CHLORIDE 0.9% 1,000 ML IV STA (17:44)
[2022-05-18] MEDS ORDERED: GLUCAGON 1 MG VIAL IM PRN (18:59)
[2022-05-18] MEDS ORDERED: LACTULOSE 20 GM/30 ML UDCUP PO PRN (18:59)
[2022-05-18] MEDS ORDERED: LACTULOSE 320 GM/480 ML BOTTLE RECTAL PRN (19:04)
[2022-05-18] MEDS ORDERED: LACTULOSE 320 GM/480 ML BOTTLE RECTAL ONE (19:30)
[2022-05-18] MEDS ORDERED: DEXTROSE 10% 250 ML BAG IV PRN (19:55)
[2022-05-18] MEDS ORDERED: DIGOXIN 0.5 MG/2 ML AMP IV ONE (20:15)
[2022-05-19] MEDS: METOPROLOL TARTRATE 5 MG/5 ML VIAL IV SCH ×3 (00:17→13:30)
[2022-05-19 04:36] LABS: Amorphous Crystals,Urine Occasional /HPF (Few); Bacteria,Urine Occasional /HPF (Few); Mucus,Urine Occasional /LPF (Occasional); Squamous Epithelial Cell,Urine Occasional /HPF (0-10); Urine Appearance Clear (Clear); Urine Color Dark Yellow (Yellow)
[2022-05-19 04:37] LABS: Bilirubin,Urine Negative (Negative); Blood, Urine Large mg/dL (Negative); Glucose,Urine (UA) Negative (Negative); Ketones,Urine Negative (Negative); Nitrite,Urine Positive (Negative); Protein,Urine Negative (Negative); Urine Specific Gravity 1.025 (1.001-1.035); Urine Urobilinogen 0.2 eU/dL (<2.0)
[2022-05-19 04:50] LABS: Barbiturates Screen,Urine Negative (Negative); Benzodiazepines Screen,Urine Negative (Negative); Cannabinoid Screen,Urine Negative (Negative); Opiate Screen,Urine Negative (Negative); Phencyclidine Screen,Urine Negative (Negative)
[2022-05-19] MEDS ORDERED: LEVOTHYROXINE 50 MCG TABLET PO SCH (06:00)
[2022-05-19 06:34] LABS: Basophils % 0.6 % (0.0-0.8); Eosinophils # 0.2 10*3/uL (0.0-0.87); Eosinophils % 4.4 % (0.00-10.9); Hematocrit 34.2 VOL% (35.7-47.0); Hemoglobin 10.4 GM/DL (12.0-16.0); Immature Granulocytes % 0.3 %; Immature Granulocytes Absolute 0.01 #; Lymphocytes # 0.7 10*3/uL (1.4-4.0); Lymphocytes % 18.2 % (21.3-54.2); Mean Corpuscular HGB Conc 30.4 GM/DL (32-36); Mean Corpuscular Volume 91.9 FL (87-102); Monocytes # 0.4 10*3/uL (0.11-0.8); Monocytes % 9.9 % (1.7-12.7); Neutrophils % 66.6 % (38.7-73.9); Platelet Count 54 T/CUMM (130-400); Red Blood Count 3.72 MC/CUMM (3.8-5.5); Red Cell Distribution Width 18.4 % (9.3-17.3); White Blood Count 3.6 T/CUMM (4-12)
[2022-05-19 06:51] LABS: Albumin 2.2 G/DL (3.4-5.0); Bilirubin,Total 1.4 MG/DL (0.20-1.00); Calcium 8.5 MG/DL (8.5-10.1); Osmolality,Calculated 298.9 MOS/KG (273-304); Potassium 3.8 MMOL/L (3.5-5.1); Risk Ratio 2.29; Total Protein 5.2 G/DL (6.4-8.2); VLDL Cholesterol 8.6 MG/DL
[2022-05-19 07:10] LABS: Anisocytosis 1+; Burr Cells 2+; Macrocytosis Slight; Ovalocytes Few; Platelet Estimate Decreased; Tear Drop Cells Few
[2022-05-19] MEDS ORDERED: FUROSEMIDE 40 MG/4 ML VIAL IV SCH (08:00)
[2022-05-19] MEDS ORDERED: DIGOXIN 0.5 MG/2 ML AMP IV SCH (09:00)
[2022-05-19] MEDS ORDERED: LACTULOSE 320 GM/480 ML BOTTLE RECTAL SCH (09:00)
[2022-05-19] MEDS: PANTOPRAZOLE 40 MG VIAL IV SCH (09:32)
[2022-05-19] MEDS: cefTRIAXone 1,000 MG in SODIUM CHLORIDE 0.9% 100 ML IV SCH (09:32)
[2022-05-19] MEDS ORDERED: MAGNESIUM SULF RIDER 4 GM/100 ML PREMIX IV PRN (15:26)
[2022-05-19] MEDS ORDERED: FUROSEMIDE 40 MG TABLET PO SCH (16:00)
[2022-05-19] MEDS: MAGNESIUM SULF RIDER 2 GM/50 ML PREMIX IV PRN (16:31)
[2022-05-19] MEDS: LACTULOSE 20 GM/30 ML UDCUP PO SCH ×3 (16:31→23:04)
[2022-05-19] MEDS: traZODone 50 MG TABLET PO SCH (20:15)
[2022-05-19] MEDS: METOPROLOL TARTRATE 5 MG/5 ML VIAL IV PRN (23:38)
[2022-05-20] MEDS: LACTULOSE 20 GM/30 ML UDCUP PO SCH ×4 (03:00→21:15)
[2022-05-20 05:29] LABS: Basophils % 0.7 % (0.0-0.8); Eosinophils # 0.3 10*3/uL (0.0-0.87); Eosinophils % 7.6 % (0.00-10.9); Hematocrit 31.8 VOL% (35.7-47.0); Hemoglobin 9.8 GM/DL (12.0-16.0); Immature Granulocytes % 0.2 %; Immature Granulocytes Absolute 0.01 #; Lymphocytes % 23.4 % (21.3-54.2); Mean Corpuscular HGB Conc 30.8 GM/DL (32-36); Mean Corpuscular Volume 93.3 FL (87-102); Mean Platelet Volume 12.3 FL (9.6-12.0); Monocytes # 0.3 10*3/uL (0.11-0.8); Monocytes % 7.9 % (1.7-12.7); Neutrophils % 60.2 % (38.7-73.9); Platelet Count 70 T/CUMM (130-400); Red Blood Count 3.41 MC/CUMM (3.8-5.5); Red Cell Distribution Width 18.3 % (9.3-17.3); White Blood Count 4.2 T/CUMM (4-12)
[2022-05-20] MEDS: LEVOTHYROXINE 100 MCG TABLET PO SCH (05:36)
[2022-05-20 05:49] LABS: Platelet Estimate Decreased
[2022-05-20 06:00] LABS: Albumin 2.2 G/DL (3.4-5.0); Bilirubin,Total 1.2 MG/DL (0.20-1.00); Osmolality,Calculated 296.4 MOS/KG (273-304); Potassium 3.7 MMOL/L (3.5-5.1); Total Protein 4.9 G/DL (6.4-8.2)
[2022-05-20] MEDS: cefTRIAXone 1,000 MG in SODIUM CHLORIDE 0.9% 100 ML IV SCH (08:17)
[2022-05-20] MEDS: PANTOPRAZOLE 40 MG VIAL IV SCH (08:26)
[2022-05-20] MEDS: METOPROLOL TARTRATE 5 MG/5 ML VIAL IV PRN (08:45)
[2022-05-20] MEDS: METOPROLOL SUCCINATE XL 50 MG TABLET PO SCH (08:49)
[2022-05-20] MEDS: DIGOXIN 0.25 MG TABLET PO SCH (13:54)
[2022-05-20] MEDS: traZODone 50 MG TABLET PO SCH (21:15)
[2022-05-21 05:22] LABS: Basophils % 0.7 % (0.0-0.8); Eosinophils # 0.3 10*3/uL (0.0-0.87); Eosinophils % 10.1 % (0.00-10.9); Hematocrit 30.3 VOL% (35.7-47.0); Hemoglobin 9.4 GM/DL (12.0-16.0); Immature Granulocytes % 0.3 %; Immature Granulocytes Absolute 0.01 #; Lymphocytes # 0.9 10*3/uL (1.4-4.0); Lymphocytes % 30.5 % (21.3-54.2); Mean Corpuscular Volume 90.7 FL (87-102); Mean Platelet Volume 13.1 FL (9.6-12.0); Monocytes # 0.3 10*3/uL (0.11-0.8); Monocytes % 9.1 % (1.7-12.7); Neutrophils % 49.3 % (38.7-73.9); Platelet Count 60 T/CUMM (130-400); Red Blood Count 3.34 MC/CUMM (3.8-5.5); Red Cell Distribution Width 17.6 % (9.3-17.3)
[2022-05-21 05:33] LABS: Osmolality,Calculated 283.8 MOS/KG (273-304); Potassium 3.5 MMOL/L (3.5-5.1)
[2022-05-21 05:44] LABS: Platelet Estimate Decreased
[2022-05-21] MEDS: LEVOTHYROXINE 100 MCG TABLET PO SCH (05:50)
[2022-05-21] MEDS ORDERED: FUROSEMIDE 80 MG TABLET PO SCH (09:00)
[2022-05-21] MEDS: LACTULOSE 20 GM/30 ML UDCUP PO SCH ×3 (10:09→20:32)
[2022-05-21] MEDS: cefTRIAXone 1,000 MG in SODIUM CHLORIDE 0.9% 100 ML IV SCH (10:09)
[2022-05-21] MEDS: PANTOPRAZOLE 40 MG VIAL IV SCH (10:09)
[2022-05-21] MEDS: METOPROLOL SUCCINATE XL 50 MG TABLET PO SCH (10:10)
[2022-05-21] MEDS: MAGNESIUM SULF RIDER 2 GM/50 ML PREMIX IV PRN (10:10)
[2022-05-21] MEDS: DIGOXIN 0.25 MG TABLET PO SCH (13:04)
[2022-05-21] MEDS: traZODone 50 MG TABLET PO SCH (20:32)
[2022-05-22] MEDS: LEVOTHYROXINE 100 MCG TABLET PO SCH (05:49)
[2022-05-22] MEDS: LACTULOSE 20 GM/30 ML UDCUP PO SCH ×3 (09:53→20:47)
[2022-05-22] MEDS: cefTRIAXone 1,000 MG in SODIUM CHLORIDE 0.9% 100 ML IV SCH (09:54)
[2022-05-22] MEDS: PANTOPRAZOLE 40 MG VIAL IV SCH (09:54)
[2022-05-22] MEDS: METOPROLOL SUCCINATE XL 50 MG TABLET PO SCH (09:54)
[2022-05-22] MEDS: DIGOXIN 0.25 MG TABLET PO SCH (13:25)
[2022-05-22] MEDS: traZODone 50 MG TABLET PO SCH (20:47)
[2022-05-23] MEDS: LEVOTHYROXINE 100 MCG TABLET PO SCH (05:51)
[2022-05-23 08:18] VITALS: BP 101/66
[2022-05-23] MEDS: METOPROLOL SUCCINATE XL 50 MG TABLET PO SCH (09:24)
[2022-05-23] MEDS: PANTOPRAZOLE 40 MG VIAL IV SCH (09:24)
[2022-05-23] MEDS: LACTULOSE 20 GM/30 ML UDCUP PO SCH (09:24)
[2022-05-23] MEDS: cefTRIAXone 1,000 MG in SODIUM CHLORIDE 0.9% 100 ML IV SCH (09:24)
[2022-05-23] MEDS ORDERED: HEPARIN LOCK FLUSH 500 UNIT/5 ML SYRINGE IV ONE (12:13)
== END 2022-05-23 13:25 | disposition home health service (06) | DRG 441 ==
LOC: EDBD → EDUNIT# → N.EDINP 15:00 → N.ED 15:00 → N.3E 05-19 00:47 → N.TELES 05-20 09:58
PROVIDERS: ADMIT Internal Medicine; ATTEND Internal Medicine

== ENCOUNTER 2022-11-08 12:21 | Observation (INO) ==
[2022-11-08] MEDS ORDERED: FUROSEMIDE 100 MG/10 ML VIAL IV STA (13:06)
[2022-11-08] MEDS ORDERED: ONDANSETRON 4 MG/2 ML VIAL IV ONE (13:41)
[2022-11-08] MEDS ORDERED: fentaNYL 100 MCG/2 ML VIAL IV STA (13:41)
[2022-11-08] MEDS ORDERED: DILTIAZEM 25 MG/5 ML VIAL IV STA (13:41)
[2022-11-08 13:53] LABS: Basophils % 0.9 % (0.0-0.8); Eosinophils # 0.2 10*3/uL (0.0-0.87); Eosinophils % 7.1 % (0.00-10.9); Hematocrit 30.2 VOL% (35.7-47.0); Hemoglobin 9.4 GM/DL (12.0-16.0); Immature Granulocytes % 0.4 %; Immature Granulocytes Absolute 0.01 #; Lymphocytes # 0.6 10*3/uL (1.4-4.0); Lymphocytes % 27.1 % (21.3-54.2); Mean Corpuscular HGB Conc 31.1 GM/DL (32-36); Mean Corpuscular Volume 94.7 FL (87-102); Mean Platelet Volume 11.5 FL (9.6-12.0); Monocytes # 0.2 10*3/uL (0.11-0.8); Monocytes % 7.6 % (1.7-12.7); Neutrophils % 56.9 % (38.7-73.9); Platelet Count 90 T/CUMM (130-400); Red Blood Count 3.19 MC/CUMM (3.8-5.5); Red Cell Distribution Width 17.1 % (9.3-17.3); White Blood Count 2.3 T/CUMM (4-12)
[2022-11-08 14:01] LABS: INR 1.3; PT Patient Result 14.3 SECS (10.1-12.1); Partial Thromboplastin Time 37.8 SECS (23.7-32.9)
[2022-11-08 14:13] LABS: Albumin 2.2 G/DL (3.4-5.0); Bilirubin,Total 1.4 MG/DL (0.20-1.00); Osmolality,Calculated 292.3 MOS/KG (273-304); Potassium 3.4 MMOL/L (3.5-5.1); Total Protein 5.2 G/DL (6.4-8.2)
[2022-11-08 14:26] LABS: Burr Cells Slight; Ovalocytes Slight; Platelet Estimate Decreased
[2022-11-08] MEDS ORDERED: POTASSIUM BICARB EFFERVESCENT 20 MEQ TAB.EFF PO ONE (14:51)
[2022-11-08] MEDS ORDERED: ACETAMINOPHEN 325 MG TABLET PO PRN (15:07)
[2022-11-08] MEDS ORDERED: MAGNESIUM SULF RIDER 2 GM/50 ML PREMIX IV ONE (15:13)
[2022-11-08] MEDS ORDERED: POTASSIUM CHLORIDE 20 MEQ TABLET PO STA (15:13)
[2022-11-08] MEDS ORDERED: METOPROLOL TARTRATE 5 MG/5 ML VIAL IV PRN (15:19)
[2022-11-08] MEDS: LACTULOSE 20 GM/30 ML UDCUP PO SCH ×3 (18:21→21:55)
[2022-11-08] MEDS: AMITRIPTYLINE 25 MG TABLET PO SCH (21:54)
[2022-11-08] MEDS: carvediloL 3.125 MG TABLET PO SCH (21:54)
[2022-11-08] MEDS: FUROSEMIDE 40 MG/4 ML VIAL IV SCH (22:15)
[2022-11-08] MEDS ORDERED: MORPHINE 2 MG/1 ML SYRINGE IV ONE (23:00)
[2022-11-09] MEDS: LACTULOSE 20 GM/30 ML UDCUP PO SCH ×5 (00:32→18:12)
[2022-11-09 05:32] LABS: Basophils % 0.7 % (0.0-0.8); Eosinophils # 0.3 10*3/uL (0.0-0.87); Eosinophils % 9.6 % (0.00-10.9); Hematocrit 28.8 VOL% (35.7-47.0); Hemoglobin 8.9 GM/DL (12.0-16.0); Immature Granulocytes % 0.7 %; Immature Granulocytes Absolute 0.02 #; Lymphocytes # 0.9 10*3/uL (1.4-4.0); Lymphocytes % 31.2 % (21.3-54.2); Mean Corpuscular HGB Conc 30.9 GM/DL (32-36); Mean Corpuscular Volume 94.7 FL (87-102); Monocytes # 0.3 10*3/uL (0.11-0.8); Monocytes % 8.9 % (1.7-12.7); Neutrophils % 48.9 % (38.7-73.9); Platelet Count 93 T/CUMM (130-400); Red Blood Count 3.04 MC/CUMM (3.8-5.5); Red Cell Distribution Width 17.1 % (9.3-17.3); White Blood Count 2.8 T/CUMM (4-12)
[2022-11-09 05:43] LABS: Albumin 1.9 G/DL (3.4-5.0); Calcium 8.1 MG/DL (8.5-10.1); Osmolality,Calculated 291.3 MOS/KG (273-304); Potassium 3.5 MMOL/L (3.5-5.1); Total Protein 4.6 G/DL (6.4-8.2)
[2022-11-09 06:33] LABS: Platelet Estimate Decreased
[2022-11-09] MEDS: LEVOTHYROXINE 100 MCG TABLET PO SCH (06:53)
[2022-11-09] MEDS ORDERED: POTASSIUM CHLORIDE 20 MEQ TABLET PO SCH (09:00)
[2022-11-09] MEDS ORDERED: MAGNESIUM SULF RIDER 2 GM/50 ML PREMIX IV ONE (09:11)
[2022-11-09] MEDS: FUROSEMIDE 40 MG/4 ML VIAL IV SCH ×2 (09:27→21:05)
[2022-11-09] MEDS: carvediloL 3.125 MG TABLET PO SCH ×2 (09:28→18:12)
[2022-11-09] MEDS: PANTOPRAZOLE 40 MG TABLET PO SCH (09:28)
[2022-11-09] MEDS: DIGOXIN 0.25 MG TABLET PO SCH (15:11)
[2022-11-09] MEDS: AMITRIPTYLINE 25 MG TABLET PO SCH (21:13)
[2022-11-09] MEDS: POTASSIUM CHLORIDE 20 MEQ TABLET PO SCH (21:13)
[2022-11-10] MEDS: LACTULOSE 20 GM/30 ML UDCUP PO SCH ×4 (00:47→17:50)
[2022-11-10 05:50] LABS: Calcium 8.2 MG/DL (8.5-10.1); Osmolality,Calculated 286.7 MOS/KG (273-304); Phosphorous 2.9 MG/DL (2.5-4.9); Potassium 3.7 MMOL/L (3.5-5.1)
[2022-11-10] MEDS: LEVOTHYROXINE 100 MCG TABLET PO SCH (06:44)
[2022-11-10] MEDS: POTASSIUM CHLORIDE 20 MEQ TABLET PO SCH ×2 (08:57→21:21)
[2022-11-10] MEDS: carvediloL 3.125 MG TABLET PO SCH ×2 (08:58→17:50)
[2022-11-10] MEDS: FUROSEMIDE 40 MG/4 ML VIAL IV SCH ×2 (08:58→21:48)
[2022-11-10] MEDS: PANTOPRAZOLE 40 MG TABLET PO SCH (08:58)
[2022-11-10] MEDS ORDERED: NITROGLYCERIN SL 0.4 MG TABLET SL PRN (09:00)
[2022-11-10] MEDS: MAGNESIUM OXIDE 400 MG TABLET PO SCH ×2 (09:24→21:22)
[2022-11-10] MEDS: SPIRONOLACTONE 100 MG TABLET PO SCH (09:24)
[2022-11-10] MEDS: FERROUS SULFATE 325 MG TABLET PO SCH (09:25)
[2022-11-10] MEDS: DIGOXIN 0.25 MG TABLET PO SCH (15:27)
[2022-11-10] MEDS: AMITRIPTYLINE 25 MG TABLET PO SCH (21:27)
[2022-11-11] MEDS: LACTULOSE 20 GM/30 ML UDCUP PO SCH ×5 (00:09→23:05)
[2022-11-11] MEDS: LEVOTHYROXINE 100 MCG TABLET PO SCH (05:49)
[2022-11-11 06:40] LABS: Basophils % 0.8 % (0.0-0.8); Eosinophils # 0.2 10*3/uL (0.0-0.87); Eosinophils % 5.9 % (0.00-10.9); Hematocrit 31.3 VOL% (35.7-47.0); Hemoglobin 9.7 GM/DL (12.0-16.0); Immature Granulocytes % 0.5 %; Immature Granulocytes Absolute 0.02 #; Lymphocytes # 0.9 10*3/uL (1.4-4.0); Lymphocytes % 23.9 % (21.3-54.2); Mean Platelet Volume 12.2 FL (9.6-12.0); Monocytes # 0.3 10*3/uL (0.11-0.8); Monocytes % 9.1 % (1.7-12.7); Neutrophils % 59.8 % (38.7-73.9); Platelet Count 94 T/CUMM (130-400); Red Blood Count 3.26 MC/CUMM (3.8-5.5); Red Cell Distribution Width 16.4 % (9.3-17.3); White Blood Count 3.7 T/CUMM (4-12)
[2022-11-11 07:21] LABS: Platelet Estimate Decreased
[2022-11-11 07:25] LABS: Calcium 8.6 MG/DL (8.5-10.1); Osmolality,Calculated 289.4 MOS/KG (273-304); Potassium 3.6 MMOL/L (3.5-5.1)
[2022-11-11] MEDS: PANTOPRAZOLE 40 MG TABLET PO SCH (09:42)
[2022-11-11] MEDS: carvediloL 3.125 MG TABLET PO SCH (09:42)
[2022-11-11] MEDS: POTASSIUM CHLORIDE 20 MEQ TABLET PO SCH ×2 (09:42→21:37)
[2022-11-11] MEDS: MAGNESIUM OXIDE 400 MG TABLET PO SCH ×2 (09:43→21:37)
[2022-11-11] MEDS: SPIRONOLACTONE 100 MG TABLET PO SCH (09:43)
[2022-11-11] MEDS: FERROUS SULFATE 325 MG TABLET PO SCH (09:43)
[2022-11-11] MEDS: FUROSEMIDE 40 MG/4 ML VIAL IV SCH (09:49)
[2022-11-11] MEDS: carvediloL 12.5 MG TABLET PO SCH ×2 (11:48→17:20)
[2022-11-11] MEDS: KETOROLAC 15 MG/1 ML VIAL IV PRN ×2 (13:23→21:54)
[2022-11-11] MEDS: DIGOXIN 0.25 MG TABLET PO SCH (13:58)
[2022-11-11] MEDS ORDERED: MAGNESIUM SULF RIDER 2 GM in PREMIX 1 EACH IV ONE (14:39)
[2022-11-11] MEDS: FUROSEMIDE 20 MG TABLET PO SCH (17:21)
[2022-11-11] MEDS: ZINC OXIDE 16% PASTE 57 GM TUBE TOP SCH (21:37)
[2022-11-11] MEDS: AMITRIPTYLINE 25 MG TABLET PO SCH (21:37)
[2022-11-12 05:22] LABS: Calcium 8.2 MG/DL (8.5-10.1); Potassium 4.5 MMOL/L (3.5-5.1)
[2022-11-12] MEDS: LEVOTHYROXINE 100 MCG TABLET PO SCH (06:40)
[2022-11-12] MEDS: LACTULOSE 20 GM/30 ML UDCUP PO SCH ×2 (06:40→12:24)
[2022-11-12] MEDS ORDERED: INFLUENZA VIRUS VACCINE 0.5 ML SYRINGE IM ONE (09:00)
[2022-11-12] MEDS: PANTOPRAZOLE 40 MG TABLET PO SCH (09:45)
[2022-11-12] MEDS: POTASSIUM CHLORIDE 20 MEQ TABLET PO SCH (09:45)
[2022-11-12] MEDS: FERROUS SULFATE 325 MG TABLET PO SCH (09:45)
[2022-11-12] MEDS: ZINC OXIDE 16% PASTE 57 GM TUBE TOP SCH (09:46)
[2022-11-12] MEDS: MAGNESIUM OXIDE 400 MG TABLET PO SCH (09:46)
[2022-11-12] MEDS: FUROSEMIDE 20 MG TABLET PO SCH (09:47)
[2022-11-12] MEDS: carvediloL 12.5 MG TABLET PO SCH (09:47)
[2022-11-12 11:57] VITALS: BP 93/56
[2022-11-12] MEDS: DIGOXIN 0.25 MG TABLET PO SCH (12:24)
== END 2022-11-12 15:28 | disposition home health service (06) ==
LOC: N.ED 12:21 → SUATTDRO 15:07 → INTOOBSV 15:07 → N.EDINP 15:07 → N.TELES 16:41
PROVIDERS: ADMIT Internal Medicine; ATTEND Internal Medicine

== ENCOUNTER 2022-11-17 12:57 | Inpatient (IN) ==
[2022-11-17] MEDS ORDERED: DEXTROSE 50% 25 GM/50 ML SYRINGE IV ONE (13:51)
[2022-11-17] MEDS ORDERED: SODIUM CHLORIDE 0.9% 1,000 ML IV STA (13:54)
[2022-11-17] MEDS ORDERED: NALOXONE 0.4 MG/ML VIAL IV STA (13:54)
[2022-11-17 14:06] LABS: Basophils % 0.5 % (0.0-0.8); Eosinophils # 0.2 10*3/uL (0.0-0.87); Eosinophils % 3.7 % (0.00-10.9); Hematocrit 32.4 VOL% (35.7-47.0); Hemoglobin 10.3 GM/DL (12.0-16.0); Immature Granulocytes % 0.7 %; Immature Granulocytes Absolute 0.03 #; Lymphocytes # 0.8 10*3/uL (1.4-4.0); Lymphocytes % 18.5 % (21.3-54.2); Mean Corpuscular HGB Conc 31.8 GM/DL (32-36); Mean Corpuscular Volume 93.1 FL (87-102); Mean Platelet Volume 11.8 FL (9.6-12.0); Monocytes # 0.4 10*3/uL (0.11-0.8); Monocytes % 8.9 % (1.7-12.7); Neutrophils % 67.7 % (38.7-73.9); Platelet Count 77 T/CUMM (130-400); Red Blood Count 3.48 MC/CUMM (3.8-5.5); Red Cell Distribution Width 16.2 % (9.3-17.3); White Blood Count 4.1 T/CUMM (4-12)
[2022-11-17 14:32] LABS: Albumin 2.1 G/DL (3.4-5.0); Bilirubin,Total 1.6 MG/DL (0.20-1.00); Calcium 8.3 MG/DL (8.5-10.1); Osmolality,Calculated 292.6 MOS/KG (273-304); Potassium 3.7 MMOL/L (3.5-5.1); Total Protein 5.3 G/DL (6.4-8.2)
[2022-11-17 14:37] LABS: Lactic Acid 1.4 MMOL/L (0.4-2.0)
[2022-11-17] MEDS ORDERED: LACTULOSE 320 GM/480 ML BOTTLE RECTAL ONE ×3 (14:40→15:30)
[2022-11-17] MEDS ORDERED: LACTULOSE 20 GM/30 ML UDCUP PO STA (15:07)
[2022-11-17 15:45] LABS: Bacteria,Urine Occasional /HPF (Few); Mucus,Urine Few /LPF (Occasional); Squamous Epithelial Cell,Urine Few /HPF (0-10)
[2022-11-17 15:46] LABS: Bilirubin,Urine Negative (Negative); Blood, Urine Trace mg/dL (Negative); Glucose,Urine (UA) Negative (Negative); Ketones,Urine Negative (Negative); Nitrite,Urine Positive (Negative); Protein,Urine Trace mg/dL (Negative); Urine Appearance Slightly Hazy (Clear); Urine Color Yellow (Yellow)
[2022-11-17] MEDS ORDERED: ALBUTEROL 2.5 MG/3 ML NEB RESP TX PRN (15:52)
[2022-11-17 15:55] LABS: Barbiturates Screen,Urine Negative (Negative); Benzodiazepines Screen,Urine Negative (Negative); Cannabinoid Screen,Urine Negative (Negative); Opiate Screen,Urine Negative (Negative); Phencyclidine Screen,Urine Negative (Negative)
[2022-11-17] MEDS ORDERED: cefTRIAXone 1,000 MG in SODIUM CHLORIDE 0.9% 100 ML IV STA (15:55)
[2022-11-17] MEDS ORDERED: LACTATED RINGERS 1,000 ML IV SCH (16:00)
[2022-11-17] MEDS: LACTULOSE 20 GM/30 ML UDCUP PO SCH ×3 (16:23→23:47)
[2022-11-17] MEDS: PANTOPRAZOLE 40 MG VIAL IV SCH (16:36)
[2022-11-17] MEDS: carvediloL 12.5 MG TABLET PO SCH (17:53)
[2022-11-18] MEDS: LACTULOSE 20 GM/30 ML UDCUP PO SCH ×5 (04:05→20:02)
[2022-11-18 04:48] LABS: Basophils % 0.7 % (0.0-0.8); Eosinophils # 0.2 10*3/uL (0.0-0.87); Eosinophils % 4.4 % (0.00-10.9); Hematocrit 34.9 VOL% (35.7-47.0); Immature Granulocytes % 0.5 %; Immature Granulocytes Absolute 0.02 #; Lymphocytes # 0.7 10*3/uL (1.4-4.0); Lymphocytes % 16.5 % (21.3-54.2); Mean Corpuscular HGB Conc 31.5 GM/DL (32-36); Mean Corpuscular Volume 93.8 FL (87-102); Mean Platelet Volume 12.6 FL (9.6-12.0); Monocytes # 0.4 10*3/uL (0.11-0.8); Monocytes % 8.8 % (1.7-12.7); Neutrophils % 69.1 % (38.7-73.9); Platelet Count 100 T/CUMM (130-400); Red Blood Count 3.72 MC/CUMM (3.8-5.5); Red Cell Distribution Width 16.3 % (9.3-17.3); White Blood Count 4.3 T/CUMM (4-12)
[2022-11-18 04:58] LABS: INR 1.2; PT Patient Result 13.1 SECS (10.1-12.1); Partial Thromboplastin Time 29.1 SECS (23.7-32.9)
[2022-11-18 05:12] LABS: Albumin 2.1 G/DL (3.4-5.0); Bilirubin,Total 1.7 MG/DL (0.20-1.00); Calcium 8.1 MG/DL (8.5-10.1); Osmolality,Calculated 294.4 MOS/KG (273-304); Potassium 3.6 MMOL/L (3.5-5.1); Total Protein 5.6 G/DL (6.4-8.2)
[2022-11-18 05:14] LABS: Folate 12.69 NG/ML (5.38-24.0)
[2022-11-18 05:27] LABS: Free T4 (Free Thyroxine) 1.38 NG/DL (0.76-1.46); Thyroid Stimulating Hormone 3.43 uIU/ml (0.358-3.74)
[2022-11-18] MEDS: LEVOTHYROXINE 100 MCG TABLET PO SCH (05:27)
[2022-11-18] MEDS ORDERED: METOPROLOL TARTRATE 5 MG/5 ML VIAL IV ONE (05:30)
[2022-11-18] MEDS: carvediloL 12.5 MG TABLET PO SCH ×2 (08:50→16:24)
[2022-11-18] MEDS: FERROUS SULFATE 325 MG TABLET PO SCH (08:50)
[2022-11-18] MEDS: DIGOXIN 0.25 MG TABLET PO SCH (12:49)
[2022-11-18] MEDS: FONDAPARINUX 7.5 MG/0.6 ML SYRINGE SUBCUT SCH (12:49)
[2022-11-18] MEDS: PANTOPRAZOLE 40 MG VIAL IV SCH (16:23)
[2022-11-18] MEDS: cefTRIAXone 1,000 MG in SODIUM CHLORIDE 0.9% 100 ML IV SCH (16:23)
[2022-11-18] MEDS: oxyCODONE IR 5 MG TABLET PO PRN ×2 (16:24→20:10)
[2022-11-18] MEDS: traZODone 50 MG TABLET PO SCH (20:02)
[2022-11-18] MEDS: MENTHOL/ZINC OXIDE OINT 71 GM JAR TOP SCH (20:03)
[2022-11-18] MEDS: AMITRIPTYLINE 25 MG TABLET PO SCH (20:04)
[2022-11-19] MEDS: LACTULOSE 20 GM/30 ML UDCUP PO SCH ×4 (00:07→20:31)
[2022-11-19] MEDS: oxyCODONE IR 5 MG TABLET PO PRN ×4 (00:16→20:32)
[2022-11-19 03:59] LABS: Basophils % 0.7 % (0.0-0.8); Eosinophils # 0.4 10*3/uL (0.0-0.87); Hematocrit 31.6 VOL% (35.7-47.0); Hemoglobin 9.9 GM/DL (12.0-16.0); Immature Granulocytes % 0.7 %; Immature Granulocytes Absolute 0.03 #; Lymphocytes # 0.8 10*3/uL (1.4-4.0); Lymphocytes % 18.4 % (21.3-54.2); Mean Corpuscular HGB Conc 31.3 GM/DL (32-36); Mean Platelet Volume 12.1 FL (9.6-12.0); Monocytes # 0.4 10*3/uL (0.11-0.8); Neutrophils % 64.2 % (38.7-73.9); Red Blood Count 3.36 MC/CUMM (3.8-5.5); Red Cell Distribution Width 16.7 % (9.3-17.3); White Blood Count 4.4 T/CUMM (4-12)
[2022-11-19 04:01] LABS: Platelet Count 97 T/CUMM (130-400)
[2022-11-19 04:14] LABS: Albumin 1.8 G/DL (3.4-5.0); Bilirubin,Total 0.8 MG/DL (0.20-1.00); Osmolality,Calculated 297.1 MOS/KG (273-304); Potassium 3.5 MMOL/L (3.5-5.1); Total Protein 4.9 G/DL (6.4-8.2)
[2022-11-19 04:18] LABS: Phosphorous 2.7 MG/DL (2.5-4.9)
[2022-11-19] MEDS ORDERED: MAGNESIUM SULF RIDER 4 GM/100 ML PREMIX IV PRN (05:30)
[2022-11-19] MEDS: MAGNESIUM SULF RIDER 2 GM/50 ML PREMIX IV PRN (05:59)
[2022-11-19] MEDS: LEVOTHYROXINE 100 MCG TABLET PO SCH (05:59)
[2022-11-19] MEDS: carvediloL 12.5 MG TABLET PO SCH ×2 (08:21→17:34)
[2022-11-19] MEDS: FERROUS SULFATE 325 MG TABLET PO SCH (08:24)
[2022-11-19] MEDS: MENTHOL/ZINC OXIDE OINT 71 GM JAR TOP SCH ×2 (08:32→20:32)
[2022-11-19] MEDS: DIGOXIN 0.25 MG TABLET PO SCH (13:58)
[2022-11-19] MEDS: FONDAPARINUX 7.5 MG/0.6 ML SYRINGE SUBCUT SCH (13:58)
[2022-11-19] MEDS: PANTOPRAZOLE 40 MG VIAL IV SCH (15:35)
[2022-11-19] MEDS: cefTRIAXone 1,000 MG in SODIUM CHLORIDE 0.9% 100 ML IV SCH (15:36)
[2022-11-19] MEDS: traZODone 50 MG TABLET PO SCH (20:31)
[2022-11-19] MEDS: AMITRIPTYLINE 25 MG TABLET PO SCH (20:36)
[2022-11-20 03:47] LABS: Basophils % 0.5 % (0.0-0.8); Eosinophils # 0.4 10*3/uL (0.0-0.87); Eosinophils % 9.8 % (0.00-10.9); Hematocrit 30.8 VOL% (35.7-47.0); Hemoglobin 9.6 GM/DL (12.0-16.0); Immature Granulocytes % 0.5 %; Immature Granulocytes Absolute 0.02 #; Lymphocytes # 0.8 10*3/uL (1.4-4.0); Mean Corpuscular HGB Conc 31.2 GM/DL (32-36); Mean Corpuscular Volume 94.2 FL (87-102); Mean Platelet Volume 11.9 FL (9.6-12.0); Monocytes # 0.3 10*3/uL (0.11-0.8); Monocytes % 8.5 % (1.7-12.7); Neutrophils % 58.7 % (38.7-73.9); Platelet Count 83 T/CUMM (130-400); Red Blood Count 3.27 MC/CUMM (3.8-5.5); Red Cell Distribution Width 15.9 % (9.3-17.3); White Blood Count 3.8 T/CUMM (4-12)
[2022-11-20 03:54] LABS: Calcium 7.5 MG/DL (8.5-10.1); Osmolality,Calculated 285.1 MOS/KG (273-304); Potassium 3.9 MMOL/L (3.5-5.1)
[2022-11-20 05:13] LABS: Platelet Estimate Decreased
[2022-11-20] MEDS: LEVOTHYROXINE 100 MCG TABLET PO SCH (06:09)
[2022-11-20] MEDS: MAGNESIUM SULF RIDER 2 GM/50 ML PREMIX IV PRN (06:10)
[2022-11-20] MEDS: oxyCODONE IR 5 MG TABLET PO PRN (06:14)
[2022-11-20] MEDS: carvediloL 12.5 MG TABLET PO SCH ×2 (08:54→18:01)
[2022-11-20] MEDS: LACTULOSE 20 GM/30 ML UDCUP PO SCH ×2 (08:55→20:57)
[2022-11-20] MEDS: FERROUS SULFATE 325 MG TABLET PO SCH (08:55)
[2022-11-20] MEDS: MENTHOL/ZINC OXIDE OINT 71 GM JAR TOP SCH ×2 (08:55→21:30)
[2022-11-20] MEDS: FONDAPARINUX 7.5 MG/0.6 ML SYRINGE SUBCUT SCH (12:31)
[2022-11-20] MEDS: DIGOXIN 0.25 MG TABLET PO SCH (12:31)
[2022-11-20] MEDS: cefTRIAXone 1,000 MG in SODIUM CHLORIDE 0.9% 100 ML IV SCH (18:01)
[2022-11-20] MEDS: PANTOPRAZOLE 40 MG VIAL IV SCH (18:01)
[2022-11-20] MEDS: AMITRIPTYLINE 25 MG TABLET PO SCH (20:57)
[2022-11-20] MEDS: traZODone 50 MG TABLET PO SCH (20:57)
[2022-11-21] MEDS: LEVOTHYROXINE 100 MCG TABLET PO SCH (05:52)
[2022-11-21 08:04] LABS: Basophils % 0.4 % (0.0-0.8); Eosinophils # 0.3 10*3/uL (0.0-0.87); Hematocrit 29.5 VOL% (35.7-47.0); Hemoglobin 9.4 GM/DL (12.0-16.0); Immature Granulocytes % 0.2 %; Immature Granulocytes Absolute 0.01 #; Lymphocytes # 0.6 10*3/uL (1.4-4.0); Mean Corpuscular HGB Conc 31.9 GM/DL (32-36); Mean Corpuscular Volume 91.9 FL (87-102); Mean Platelet Volume 12.5 FL (9.6-12.0); Monocytes # 0.3 10*3/uL (0.11-0.8); Monocytes % 6.9 % (1.7-12.7); Neutrophils % 72.5 % (38.7-73.9); Platelet Count 74 T/CUMM (130-400); Red Blood Count 3.21 MC/CUMM (3.8-5.5); Red Cell Distribution Width 15.8 % (9.3-17.3); White Blood Count 4.5 T/CUMM (4-12)
[2022-11-21 08:19] LABS: Calcium 7.7 MG/DL (8.5-10.1); Potassium 3.9 MMOL/L (3.5-5.1)
[2022-11-21 08:46] LABS: Microcytosis 1+; Ovalocytes Few; Platelet Estimate Decreased; Tear Drop Cells Slight
[2022-11-21] MEDS ORDERED: FONDAPARINUX 7.5 MG/0.6 ML SYRINGE SUBCUT SCH (09:00)
[2022-11-21] MEDS: carvediloL 12.5 MG TABLET PO SCH (09:06)
[2022-11-21] MEDS: FERROUS SULFATE 325 MG TABLET PO SCH (09:06)
[2022-11-21] MEDS: LACTULOSE 20 GM/30 ML UDCUP PO SCH (09:06)
[2022-11-21] MEDS: cefTRIAXone 1,000 MG in SODIUM CHLORIDE 0.9% 100 ML IV SCH (09:12)
[2022-11-21] MEDS: oxyCODONE IR 5 MG TABLET PO PRN (09:56)
[2022-11-21 12:05] VITALS: BP 94/57
[2022-11-21] MEDS ORDERED: HEPARIN LOCK FLUSH 500 UNIT/5 ML SYRINGE IV PRN (13:02)
[2022-11-21] MEDS ORDERED: HEPARIN LOCK FLUSH 500 UNIT/5 ML SYRINGE IV SCH (21:00)
[2022-11-22] MEDS ORDERED: PANTOPRAZOLE 40 MG TABLET PO SCH (06:30)
== END 2022-11-21 13:50 | disposition home health service (06) | DRG 441 ==
LOC: N.ED 12:57 → EDUNIT# 12:57 → EDBD 12:57 → SUATTDRO 15:52 → N.EDINP 15:52 → N.CC 16:40 → N.2E 11-20 17:06
PROVIDERS: ADMIT Internal Medicine; ATTEND Emergency Medicine